=== PATIENT | female | born 1965 | race Caucasian/White ===

== ENCOUNTER 2016-07-16 12:50 | Emergency (ER) | payer OTHER ==
[~2016-07-16] VITALS: Ht 162.6 cm; Wt 134.0 kg
[~2016-07-16 12:50] MED LIST: CYAN100020 PO; HYDR25TA4 PO; LISI-729 PO; NAPR1TAB9 PO; PYRI50TA77 PO; ULT/50 PO; VALA500T39 PO
[2016-07-16 12:57] VITALS: TEMP 36.6; Ht 162.6 cm; Wt 134.0 kg
[2016-07-16] MEDS ORDERED: FENTANYL CITRATE INJ 50 MCG/1 ML 2 ML VIAL IV ONE (13:30)
[2016-07-16] MEDS ORDERED: OPTIRAY 320 IV PRN (13:30)
[2016-07-16] MEDS ORDERED: SODIUM CHLORIDE 0.9% 1000ML 1,000 ML IV STA (13:30)
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
[2016-07-16] MEDS ORDERED: LISI-461 PO (13:43)
[2016-07-16] MEDS ORDERED: NRN100 PO (13:43)
[2016-07-16] MEDS ORDERED: RQP/2 PO (13:43)
[2016-07-16] MEDS ORDERED: OMEP20CA9 PO (13:43)
[2016-07-16 13:46] VITALS: O2SAT 97
[2016-07-16 14:00] LABS: BASO % 0.2 %; BASO ABS # 0.03 K/uL (0-0.2); COMPLETE YES; EOS % 1.3 %; HEMATOCRIT 38.9 % (37-47); LYMPH % 13.8 %; MEAN CELL VOLUME 77.2 fL (80-100); MEAN CORPUSCULAR HEMOGLOBIN 23.6 pg (25-34); MEAN CORPUSCULAR HGB CONC 30.6 g/dl (32-36); MEAN PLATELET VOLUME 8.1 fL (7.4-10.4); MONO % 8.1 %; NEUT % 75.6 %; PLATELET COUNT 465 K/uL (130-400); RED BLOOD COUNT 5.04 M/uL (4.2-5.4); WHITE BLOOD COUNT 15.98 K/uL (4.8-10.8)
[2016-07-16 14:08] LABS: INR 0.9 (0.9-1.1)
[2016-07-16 14:21] LABS: ALT/SGPT 43 U/L (12-78); AST/SGOT 34 U/L (15-37); BLOOD UREA NITROGEN 15 mg/dl (7-18); BUN/CREATININE RATIO 15.8 (10-20); CALCIUM 8.4 mg/dl (8.5-10.1); CARBON DIOXIDE 29 mmol/L (21-32); CHLORIDE 103 mmol/L (98-107); CREATININE 0.93 mg/dl (0.60-1.20); GLUCOSE 116 mg/dl (70-99); POTASSIUM 4.1 mmol/L (3.5-5.1); SODIUM 140 mmol/L (136-145)
[2016-07-16 14:26] LABS: ALKALINE PHOSPHATASE 110 U/L (45-117)
[2016-07-16] MEDS ORDERED: ONDANSETRON INJ 2 MG/ML 2 ML VIAL IV PRN (14:45)
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
[2016-07-16] MEDS: MoRPHine SULFATE 10 MG/ML CARP/VIAL IV PRN ×2 (14:47→16:16)
--- NOTE | 2016-07-16 15:27 | DIAGNOSTIC IMAGING REPORT ---
HEAD CT NONCONTRAST CT DOSE: HISTORY: EVALUATE FOR TRAUMA/INJURY TECHNIQUE: Multiaxial CT images of the head were performed without the use of intravenous contrast. Automated exposure control was utilized for this study. Comparison: Head CT 12/06/2011. Findings: The paranasal sinuses and mastoid air cells are clear. The calvarium and skull base are intact. The ventricles and sulci are within normal limits. There is no mass, hematoma, midline shift, or acute infarct. Left-sided scalp contusion. Small left periventricular white matter hypodensity may represent mild microvascular ischemic change. Impression: No acute intracranial abnormality. Left-sided scalp contusion. Electronically signed by: Da Yao M.D. 07/16/2016 3:07 PM Dictated Date/Time: 07/16/2016 3:03 PM
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
--- NOTE | 2016-07-16 15:27 | DIAGNOSTIC IMAGING REPORT ---
CERVICAL SPINE CT CT DOSE: HISTORY: EVALUATE FOR TRAUMA/INJURY TECHNIQUE: Multiaxial CT images of the cervical spine were performed and reformatted in the sagittal and coronal plane without the use of contrast. COMPARISON: None. FINDINGS: No fractures. No subluxation. Prevertebral soft tissues and the C1-C2 interval are intact. No pneumothorax. Mild disc space narrowing at C5-C6 and C6-C7 with endplate osteophytes. IMPRESSION: No fractures within the cervical spine. Electronically signed by: Da Yao M.D. 07/16/2016 3:09 PM Dictated Date/Time: 07/16/2016 3:07 PM
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
[2016-07-16 17:53] LABS: URINE APPEARANCE CLEAR (CLEAR); URINE BILIRUBIN NEG (NEG); URINE COLOR YELLOW; URINE NITRITE NEG (NEG); URINE PH 6.5 (4.5-7.5); URINE SPECIFIC GRAVITY 1.024 (1.000-1.030); UROBILINOGEN NEG (NEG)
[2016-07-16 17:55] LABS: MANUAL MICROSCOPIC REQUIRED? NO; REVIEW REQ? NO
[2016-07-16] MEDS ORDERED: NORCO 5/325MG HOME PACK PO ONE (18:15)
[2016-07-16] MEDS ORDERED: ONDANSETRON HOME PACK 4MG OD TAB PO ONE (18:15)
[2016-07-16] MEDS ORDERED: HYDR-5688 PO (18:17)
[2016-07-16 18:46] VITALS: BP 138/75; PULSE 88; O2SAT 95
[2017-01-01] MEDS ORDERED: ULT/50 PO (16:32)
[2017-01-01] MEDS ORDERED: CZR50 PO (16:32)
[2017-01-01] MEDS ORDERED: POTA10CA28 PO (16:33)
== END 2016-07-16 18:47 | disposition home or self-care (01) ==
LOC: EDBD 12:50 → C.EDB 12:52
DX: S20.212A Contusion of left front wall of thorax, initial encounter (principal); V48.5XXA Car driver injured in noncollision transport accident in traffic accident, initial encounter; Y92.488 Other paved roadways as the place of occurrence of the external cause; S20.312A Abrasion of left front wall of thorax, initial encounter; S20.01XA Contusion of right breast, initial encounter; S20.111A Abrasion of breast, right breast, initial encounter; S30.1XXA Contusion of abdominal wall, initial encounter; S90.811A Abrasion, right foot, initial encounter; S90.511A Abrasion, right ankle, initial encounter; Z82.49 Family history of ischemic heart disease and other diseases of the circulatory system; Z83.3 Family history of diabetes mellitus

== ENCOUNTER → 2016-09-22 | Outpatient (CLI) | payer OTHER ==
[~2016-09-22] MED LIST changes: -CYAN100020 PO; +LISI-461 PO; -LISI-729 PO; -NAPR1TAB9 PO; +NRN100 PO; +OMEP20CA9 PO; -PYRI50TA77 PO; +REGADENOSON 0.4 MG/5 ML SYR ONE; +RQP/2 PO; -VALA500T39 PO
--- NOTE | 2016-09-26 23:08 | Myocardial Perfusion Study ---
Myocardial Perfusion Study Rpt Myocardial Perfusion Study Rpt Date of Service 09/22/16 Myocardial Perfusion Study Rpt Procedure: 1. Myocardial perfusion study performed in multiple views/images 2. Lexiscan pharmacologic stress ECG Indications: 1. Dyspnea with exertion 2. Chest pain Consent: Informed written consent was obtained prior to the procedure. Ordering physician: Dr. Carr Procedural details: For the stress portion of the study, Lexiscan 0.4 mg was intravenously administered followed by a saline flush. This was followed by 31.5 mCi of technetium 99m Cardiolite, injected at 11:40 a.m. on 09/22/2016. 30 minutes following the injection, imaging of the heart was performed in multiple projections. For the rest portion of the study, 10 mCi technetium 99m Cardiolite was injected intravenously at 9:40 a.m. on 09/22/2016. 1 hour following the injection, imaging of the heart was performed in the same projections. Interpretation note: This procedure was performed on 09/22/2016 by other provider. I was made aware on 09/26/2016 that the study was pending interpretation. Lexiscan stress ECG: Resting ECG demonstrated: Sinus rhythm with first-degree AV block at 80 bpm. Maximum heart rate: 103 bpm Resting blood pressure: 135/55 mmHg Maximum blood pressure: 155/50 mmHg Maximal, age-predicted heart rate: 60 % Significant ST changes: None Arrhythmia: None Symptoms: No symptoms were reported. Findings: Rotating raw imaging demonstrated no significant lung uptake. There is no significant motion artifact. Heart size appeared normal. Myocardial perfusion demonstrated no significant reversible or fixed defect to suggest ischemia or infarct. Ejection fraction: 89 % Wall motion: Hyperdynamic No significant transient ischemic dilation. Impression: 1. Normal myocardial perfusion without significant ischemic changes. 2. Hyperdynamic LV systolic function with calculated ejection fraction of 89%. 3. No regional wall motion abnormalities noted. 4. No arrhythmia. 5. Nondiagnostic Lexiscan ECG.
== END | disposition home or self-care (01) ==
LOC: C.NUCL 08:33
PROVIDERS: ATTEND Internal Medicine
DX: R06.09 Other forms of dyspnea (principal); R07.89 Other chest pain

== ENCOUNTER 2016-12-30 00:13 | Inpatient (IN) | payer OTHER ==
[~2016-12-30] VITALS: Ht 162.6 cm; Wt 146.2 kg
[2016-12-30] VITALS (8 sets, daily range): BP systolic 131–148; BP diastolic 74–82; PULSE 82–101; TEMP 36.4–36.8; O2SAT 91–97; Ht 162.6 cm; Wt 146.2 kg
[~2016-12-30 00:13] MED LIST changes: -REGADENOSON 0.4 MG/5 ML SYR ONE
[2016-12-30] MEDS ORDERED: HYDROmorphone INJ 2 MG/ML SYR/VIAL ONE (00:42)
--- NOTE | 2016-12-30 00:54 | EMERGENCY ROOM VISIT NOTE ---
History Report prepared by Rudyibumberto: Josephine Leija Under the Supervision of: Dr. Martha Pulido D.O. First contact with patient: 00:32 Chief Complaint: ABDOMINAL PAIN Stated Complaint: PAIN IN ABD History of Present Illness The patient is a 51 year old female who presents to the Emergency Room with complaints of worsening left lower abdominal pain that started yesterday. She is accompanied by her and sister. She rates her discomfort as a 10/10 in severity and describes the pain as feeling "sharp" in nature. The pain radiates into her chest and deep inspiration worsens her discomfort. She notes she took a Percocet earlier this evening when her pain worsened, but it has provided no relief. She denies any recent fevers, chills, nausea or vomiting. She drives approximately 50 miles in total each day to get to work, but denies any other recent travel. She denies any pain in her calves. She admits to a recent weight gain over the past several months. The patient denies any history of DVT or PE. She admits to a history of hypertension and restless leg syndrome and states she recently got over bronchitis that was treated with Levaquin and Azithromycin. Source of History: patient Onset: yesterday Position: abdomen (LLQ) Symptom Intensity: 10/10 Quality: sharp Timing: worsening Modifying Factors (Worsening): breathing Modifying Factors (Relieving): narcotics (Percocet) Associated Symptoms: No fevers, No chills, No nausea, No vomiting Review of Systems See HPI for pertinent positives & negatives. A total of 10 systems reviewed and were otherwise negative. Past Medical & Surgical Medical Problems: (1) Asthma (2) Bronchitis (3) Cholecystitis (4) Hypertension (5) Restless leg syndrome (6) s/p right oophorectomy / saplingectomy Surgical Problems: (1) History of cholecystectomy (2) History of knee replacement, total (3) History of shoulder surgery Family History FH: HTN (hypertension) FH: diabetes mellitus FH: heart disease Social History Smoking Status: Never Smoker Alcohol Use: none Drug Use: none Marital Status: Housing Status: lives with family Occupation Status: employed Current/Historical Medications Scheduled Gabapentin (Gabapentin), 100 MG PO TID Hydrochlorothiazide (Hctz), 25 MG PO QAM Lisinopril (Lisinopril), 10 MG PO DAILY Omeprazole (Prilosec), 20 MG PO DAILY Ropinirole Hydrochloride (Requip), 2 MG PO BID Tramadol Hcl (Ultram), 50 MG PO BID Allergies Coded Allergies: Metronidazole (Verified Adverse Reaction, Intermediate, headache, 12/30/16 ) Erythromycin (Verified Adverse Reaction, Mild, UPSET STOMACH, 12/30/16) Physical Exam Vital Signs Date Time Temp Pulse Resp B/P (MAP) Pulse Ox O2 Delivery O2 Flow Rate FiO2 12/30/16 05:03 86 18 138/76 97 Room Air 12/30/16 04:11 87 12/30/16 04:11 88 16 143/72 95 Nasal Cannula 3.0 12/30/16 03:05 88 18 122/59 Room Air 12/30/16 02:03 89 18 141/76 95 Nasal Cannula 3.0 12/30/16 01:05 93 22 153/86 96 Nasal Cannula 3.0 12/30/16 00:59 89 Room Air 12/30/16 00:59 95 Nasal Cannula 3.0 12/30/16 00:32 104 12/30/16 00:18 36.7 104 18 105/73 91 Room Air Physical Exam General: Obese female who appears extremely uncomfortable and cannot take a deep breath secondary to pain. HEENT: Head - normocephalic and atraumatic Pupils are equal, round, and reactive to light. Extraocular eye muscles are intact, and sclera are anicteric. Nose - moist nasal mucosa without discharge. Mouth - moist buccal mucosa. Oropharynx is nonerythematous and there is no tonsillar exudate or edema noted. Neck: Supple; no JVD, nuchal rigidity, cervical lymphadenopathy, or auscultated bruits. Heart: Regular rate and rhythm. Heart sounds are distant secondary to body habitus. There is a normal S1 and S2 with no murmurs, clicks, or gallops appreciated. Lungs: Diminished breath sounds in all lung malhotra secondary to body habitus, no wheezes, rales, or rhonchi. Chest: The patient has reproducible discomfort over the left inferior chest wall in the midaxillary line Abdomen: Soft, completely nontender, distended, with good bowel sounds. There are no palpable pulsatile masses or hepatosplenomegaly. There is no guarding, rigidity, or rebound noted. Extremities: Calves are distended bilaterally, no warmth or erythema. No evidence of cyanosis, clubbing, or edema. There are easily palpable peripheral pulses. Skin: warm and dry with good turgor and no rashes. Medical Decision & Procedures ER Provider Diagnostic Interpretation: Radiology results as stated below per my review and the radiologist's interpretation: CTA CHEST No evidence of filling defect to suggest pulmonary embolism. Thoracic aorta within limits. No pericardial effusion. Very small left pleural fluid. Partially imaged suggestion of hepatic steatosis. Basilar atelectasis. Central airways appear patent. Radiologist: Dr. Quicny Hein MD Laboratory Results Test 12/30/16 00:40 Est Creatinine Clear Calc Drug Dose 129.2 ml/min Estimated Average Glucose 163 mg/dl Hemoglobin A1c 7.3 % (4.5-5.6) Lipase 137 U/L (73-393) Laboratory results per my review. Medications Administered Medications (Trade) Dose Ordered Sig/Mara Route Start Time Stop Time Status Last Admin Dose Admin Hydromorphone HCl (Dilaudid Inj) 2 mg STK-MED ONCE .ROUTE 12/30/16 00:42 12/30/16 00:43 DC 12/30/16 00:53 2 MG Ketorolac Tromethamine (Toradol Inj) 30 mg NOW STAT IV 12/30/16 00:59 12/30/16 01:00 DC 12/30/16 01:03 30 MG Ondansetron HCl (Zofran Inj) 4 mg NOW STAT IV 12/30/16 01:57 12/30/16 01:58 DC 12/30/16 02:00 4 MG Sodium Chloride 1,000 ml @ 250 mls/hr Q4H STAT IV 12/30/16 04:06 12/30/16 06:51 DC 12/30/16 04:30 250 MLS/HR Ondansetron HCl (Zofran Inj) 4 mg NOW STAT IV 12/30/16 04:06 12/30/16 04:07 DC 12/30/16 04:24 4 MG Procedure Dilaudid IV, Toradol IV, Zofran IV, NSS IV. ECG Indication: abdominal pain Rate (beats per minute): 105 Rhythm: sinus tachycardia Findings: no acute ischemic change, no ectopy ED Course 0040: Past medical records reviewed. The patient was evaluated in room B2. A complete history and physical exam was performed. IV lock was established. Labs are drones above. A twelve-lead EKG was obtained as described above. 0042: Dilaudid 2 mg IV. 0059: Toradol 30 mg IV. The patient will go for CT scan of the chest to rule out PE. 0157: Nursing informed me the patient has vomited twice and would like something for nausea. I will place medication orders. 0157: Zofran 4 mg IV. 0236: I reevaluated the patient. She is feeling a little better and resting comfortably. 0325: I reevaluated the patient. She just threw up an enormous amount but states she only ate 1 piece of pizza today. She reports she feels better. I discussed her results and discharge instructions and she verbalized complete understanding and agreement. She did tell me her doctor is concerned she may have sleep apnea as she wakes up coughing every morning. She will follow up with them for further testing. 0401: I reevaluated the patient. She just vomited another entire bagful of vomit. I discussed my recommendation she remain in the hospital for further evaluation and management and she verbalized complete understanding and agreement. 0406: Zofran 4 mg IV, NSS 1000 ml @ 250 mls/hr IV. 0407: I discussed the patients case with Dr. Monique, [facility] Hospitalist. The patient will be further evaluated. Medical Decision The patient is a 55 year old female who presents to the ED with abdominal pain. Differential diagnosis includes PE, pleurisy, pneumonia, costochondritis and acute coronary syndrome. Lab results show WBC is 15.8. Hemoglobin is 11.5. Normal renal function. Glucose is 206. Normal LFT's, except AST is 49. Alkaline Phosphatase is 121. Lipase is 137. This is a 51-year-old female patient who presents to the emergency department complaining of severe left lower chest wall pain, especially when she takes a deep breath. Patient denies ever having symptoms like this in the past. Patient's O2 saturations were marginal at 90-92. The patient has had multiple episodes of vomiting all here in the emergency department. CT scan of the chest was negative for PE. She did finally get some relief of the discomfort after IV analgesia but continued to vomit. I discussed the case [facility]ist and they will evaluate for further management. Medication Reconcilliation Current Medication List: was personally reviewed by me Blood Pressure Screening Patient's blood pressure: Elevated blood pressure Blood pressure disposition: Elevated BP felt to be situational Consults Time Called: 404 Consulting Physician: Dr. Monique [facility] Hospitalist Returned Call: [phone] I discussed the patients case with Dr. Monique [facility] Hospitalist. The patient will be further evaluated. Impression Primary Impression: Left-sided chest wall pain Additional Impressions: Intractable vomiting Hyperglycemia Scribe Attestation The scribe's documentation has been prepared under my direction and personally reviewed by me in its entirety. I confirm that the note above accurately reflects all work, treatment, procedures, and medical decision making performed by me. Departure Information Dispostion Being Evaluated By Hospitalist Referrals Korina Carr M.D. (PCP) Patient Instructions [facility] Problem Qualifiers Additional Impressions: Intractable vomiting Vomiting type: unspecified Nausea presence: with nausea Qualified Codes: R11.2 - Nausea with vomiting, unspecified
[2016-12-30] MEDS ORDERED: KETOROLAC TROMETHAMINE 30 MG/ML VIAL IV STA (00:59)
[2016-12-30] MEDS ORDERED: OPTIRAY 320 IV PRN (01:00)
[2016-12-30 01:02] LABS: BASO % 0.3 %; BASO ABS # 0.04 K/uL (0-0.2); COMPLETE YES; EOS % 1.6 %; HEMATOCRIT 37.1 % (37-47); LYMPH % 17.2 %; LYMPH ABS # 2.72 K/uL (1.2-3.4); MEAN CORPUSCULAR HEMOGLOBIN 23.9 pg (25-34); MEAN PLATELET VOLUME 8.3 fL (7.4-10.4); MONO % 6.9 %; PLATELET COUNT 461 K/uL (130-400); RED BLOOD COUNT 4.82 M/uL (4.2-5.4); WHITE BLOOD COUNT 15.84 K/uL (4.8-10.8)
[2016-12-30 01:21] LABS: ALT/SGPT 73 U/L (12-78); AST/SGOT 49 U/L (15-37); BLOOD UREA NITROGEN 15 mg/dl (7-18); BUN/CREATININE RATIO 20.7 (10-20); CALCIUM 8.8 mg/dl (8.5-10.1); CARBON DIOXIDE 29 mmol/L (21-32); CHLORIDE 97 mmol/L (98-107); CREATININE 0.74 mg/dl (0.60-1.20); GLUCOSE 206 mg/dl (70-99); POTASSIUM 3.6 mmol/L (3.5-5.1); SODIUM 135 mmol/L (136-145)
[2016-12-30 01:26] LABS: ALKALINE PHOSPHATASE 121 U/L (45-117); CKMB/CK RATIO 1.8 (0-3.0)
[2016-12-30] MEDS ORDERED: ONDANSETRON INJ 2 MG/ML 2 ML VIAL IV STA ×2 (01:57→04:06)
[2016-12-30] MEDS ORDERED: SODIUM CHLORIDE 0.9% 1000ML 1,000 ML IV STA (04:06)
[2016-12-30] MEDS ORDERED: ONDANSETRON 8MG OD TAB PO PRN (04:15)
[2016-12-30] MEDS ORDERED: GLUCAGON FOR INJ 1 MG VIAL SQ PRN (04:15)
[2016-12-30] MEDS ORDERED: GLUCOSE 40% GEL 15 GM TUBE PO PRN (04:15)
[2016-12-30] MEDS ORDERED: ACETAMINOPHEN IV 100 ML IV PRN (04:15)
[2016-12-30] MEDS ORDERED: GLUCOSE 10 TABS/TUBE PO PRN (04:15)
[2016-12-30] MEDS ORDERED: DEXTROSE 50% 50 ML SYR IV PRN (04:15)
[2016-12-30] MEDS ORDERED: LEVALBUTEROL/IPRATROPIUM NEB INH PRN (04:15)
[2016-12-30] MEDS ORDERED: MoRPHine SULFATE 2 MG/ML CARP IV PRN (05:30)
--- NOTE | 2016-12-30 05:47 | History and Physical ---
History & Physical Date & Time of Service: Dec 30, 2016 at 05:29 Chief Complaint: Pain In Abd Primary Care Physician: Korina Carr M.D. History of Present Illness Source: patient The patient is a 51-year-old female who presents to the emergency department with worsening left upper quadrant abdominal pain, with intermittent radiation into her chest, worsening with deep inspiration, and worsening over the past 2 weeks, in particular over the past 2 days. She also reports that over the past year, almost every night as she is going to bed, she has episodes of nausea and vomiting, during which she brings up partially digested food, as was noted by nursing in the ED tonight. She does drive approximately 50 miles total each day to and from work. She has not had any sick exposures that she is aware of, has not had any questionable food intake. She was recently treated for bronchitis reportedly with Levaquin and azithromycin. Past Medical/Surgical History Medical Problems: (1) s/p right oophorectomy / saplingectomy Permanent Comment: for benign disease Status: Resolved Family History FH: HTN (hypertension) FH: diabetes mellitus FH: heart disease Social History Smoking Status: Never Smoker Smokeless Tobacco Use: No Alcohol Use: none Drug Use: none Marital Status: Housing status: lives with family Occupational Status: employed Immunizations History of Influenza Vaccine: Unknown History of Tetanus Vaccine?: Unknown History of Pneumococcal: Unknown History of Hepatitis B Vaccine: Unknown Multi-Drug Resistant Organisms History of MDRO: No Allergies Coded Allergies: Metronidazole (Verified Adverse Reaction, Intermediate, headache, 12/30/16 ) Erythromycin (Verified Adverse Reaction, Mild, UPSET STOMACH, 12/30/16) Home Medications Scheduled Gabapentin (Gabapentin), 100 MG PO TID Hydrochlorothiazide (Hctz), 25 MG PO QAM Lisinopril (Lisinopril), 10 MG PO DAILY Omeprazole (Prilosec), 20 MG PO DAILY Ropinirole Hydrochloride (Requip), 2 MG PO BID Tramadol Hcl (Ultram), 50 MG PO BID Review of Systems The patient denies palpitations, shortness of breath, cough, lower extremity swelling, vision change, hearing change, sore throat, fevers, chills, sweats, pelvic pain, blood in urine or stool, dysuria, urinary frequency or urgency, lightheadedness, dizziness, headache, memory loss, loss of consciousness, rash, abnormal bruising or bleeding, imbalance, focal or generalized weakness, numbness or tingling in arms or legs, generalized arthralgias or myalgias, back or neck pain, or night sweats. The review of systems is otherwise negative other than for that already noted above, and at least 10 systems have been reviewed. Physical Exam Vital Signs Date Time Temp Pulse Resp B/P (MAP) Pulse Ox O2 Delivery O2 Flow Rate FiO2 12/30/16 05:03 86 18 138/76 97 Room Air 12/30/16 04:11 87 12/30/16 04:11 88 16 143/72 95 Nasal Cannula 3.0 12/30/16 03:05 88 18 122/59 Room Air 12/30/16 02:03 89 18 141/76 95 Nasal Cannula 3.0 12/30/16 01:05 93 22 153/86 96 Nasal Cannula 3.0 12/30/16 00:59 89 Room Air 12/30/16 00:59 95 Nasal Cannula 3.0 12/30/16 00:32 104 12/30/16 00:18 36.7 104 18 105/73 91 Room Air The patient is awake, alert and oriented 3, normocephalic and atraumatic, morbidly obese, lying in bed and in no acute distress. HEENT--PERRL, EOMI, mucous membranes and oropharynx dry. Neck--supple, no JVD or bruits, thyroid normal, trachea midline, no adenopathy. Heart--normal S1 and S2, no extra beats, no murmurs, rubs or gallops. Lungs--decreased breath sounds throughout, no respiratory distress, no accessory muscle use. Abdomen--diminished bowel sounds, tender epigastrium to left upper quadrant, nondistended, and morbidly obese. Extremities--no cyanosis, clubbing or edema. There are good distal pulses b/l. Dermatologic--normal skin turgor, normal color, warm and dry, no abnormal lymph nodes, no rash. Neurologic--cranial nerves II through XII grossly intact. Rheumatologic--normal range of motion. Psychiatric--normal affect. Diagnostics Laboratory Results Results Past 24 Hours Test 12/30/16 00:40 Range/Units White Blood Count 15.84 4.8-10.8 K/uL Red Blood Count 4.82 4.2-5.4 M/uL Hemoglobin 11.5 12.0-16.0 g/dL Hematocrit 37.1 37-47 % Mean Corpuscular Volume 77.0 80-100 fL Mean Corpuscular Hemoglobin 23.9 25-34 pg Mean Corpuscular Hemoglobin Concent 31.0 32-36 g/dl Platelet Count 461 130-400 K/uL Mean Platelet Volume 8.3 7.4-10.4 fL Neutrophils (%) (Auto) 73.0 % Lymphocytes (%) (Auto) 17.2 % Monocytes (%) (Auto) 6.9 % Eosinophils (%) (Auto) 1.6 % Basophils (%) (Auto) 0.3 % Neutrophils # (Auto) 11.58 1.4-6.5 K/uL Lymphocytes # (Auto) 2.72 1.2-3.4 K/uL Monocytes # (Auto) 1.09 0.11-0.59 K/uL Eosinophils # (Auto) 0.25 0-0.5 K/uL Basophils # (Auto) 0.04 0-0.2 K/uL RDW Standard Deviation 49.5 36.4-46.3 fL RDW Coefficient of Variation 17.6 11.5-14.5 % Immature Granulocyte % (Auto) 1.0 % Immature Granulocyte # (Auto) 0.16 0.00-0.02 K/uL Sodium Level 135 136-145 mmol/L Potassium Level 3.6 3.5-5.1 mmol/L Chloride Level 97 98-107 mmol/L Carbon Dioxide Level 29 21-32 mmol/L Anion Gap 9.0 3-11 mmol/L Blood Urea Nitrogen 15 7-18 mg/dl Creatinine 0.74 0.60-1.20 mg/dl Est Creatinine Clear Calc Drug Dose 129.2 ml/min Estimated GFR () 108.7 Estimated GFR (Non- 93.8 BUN/Creatinine Ratio 20.7 10-20 Random Glucose 206 70-99 mg/dl Calcium Level 8.8 8.5-10.1 mg/dl Total Bilirubin 0.4 0.2-1 mg/dl Direct Bilirubin 0.1 0-0.2 mg/dl Aspartate Amino Transf (AST/SGOT) 49 15-37 U/L Alanine Aminotransferase (ALT/SGPT) 73 12-78 U/L Alkaline Phosphatase 121 45-117 U/L Total Creatine Kinase 109 26-192 U/L Creatine Kinase MB 2.0 0.5-3.6 ng/ml Creatine Kinase MB Ratio 1.8 0-3.0 Troponin I < 0.015 0-0.045 ng/ml Total Protein 7.9 6.4-8.2 gm/dl Albumin 3.4 3.4-5.0 gm/dl Lipase 137 73-393 U/L EKG EKG shows sinus tachycardia at 105 bpm, no acute ST-T changes, and no change compared to 07/16/2016. Impression Assessment and Plan Left upper quadrant abdominal pain/intractable vomiting/radiation of pain into left chest-- The patient will be admitted to telemetry for serial cardiac enzymes, cardiac rhythm monitoring and a 2-D echocardiogram with Dopplers. CTA of the chest was negative for pulmonary embolism. I added a CT of the abdomen and pelvis without contrast, as she had already received contrast during the above CTA, that was negative for obstruction or ileus. The patient is hyperglycemic, with a nonfasting blood sugar of 206, and her symptoms would be consistent with diabetic gastroparesis, although anginal equivalent is a possibility as well. Order laboratories as noted above, and would consider either a gastric emptying scan or upper GI with small bowel follow-through if either can be done over the weekend. Once cardiac issues have been ruled out, another option would be to perform empiric treatment with metoclopramide IV. Hyperglycemia-- Check a hemoglobin A1c. Place on Accu-Cheks before meals and at bedtime with NovoLog coverage per scale. Hypertension-- Hold lisinopril 10 mg by mouth daily and HCTZ 25 mg every morning Restless leg syndrome-- Continue ropinirole 2 mg by mouth twice a day. Peripheral neuropathy-- Continue gabapentin 100 mg by mouth 3 times a day GERD-- Change omeprazole 20 mg by mouth daily to famotidine 20 mg IV every 12 hours. Pain management-- Continue tramadol 50 mg by mouth twice a day Toradol 30 mg IV every 6 hours when necessary moderate pain Morphine sulfate 2-4 mg IV every 2 hours when necessary moderately severe to severe pain. Presumptive sleep apnea-- Patient does have difficulty with sleep at night, is known to snore, and have sleep pauses. Continue nasal cannula oxygen in particular at bedtime for now. She'll need to have a sleep study scheduled for the outpatient setting. Level of Care Telemetry Advanced Directives Existing Advance Directive: No Existing Living Will: No Existing Power of Button Riveter: No Resuscitation Status FULL RESUSCITATION VTE Prophylaxis VTE Risk Assessment Done? Y/N: Yes Risk Level: Moderate Given or contraindicated: Unfractionated heparin SQ, SCD's Social Service Consult None Apply
[2016-12-30] MEDS ORDERED: IPRATROPIUM BROMIDE NEB SOLN 0.02% 2.5 ML VIAL INH PRN (06:00)
[2016-12-30] MEDS ORDERED: LEVALBUTEROL 1.25MG/0.5ML NEB INH PRN (06:00)
[2016-12-30] MEDS: INSULIN ASPART 100 UNITS/ML 3 ML PEN SC SCH ×4 (06:30→21:00)
[2016-12-30] MEDS ORDERED: INFLUENZA VIRUS QUAD VACCINE 0.5 ML SYR IM. ONE (07:00)
[2016-12-30] MEDS ORDERED: INFLUENZA ADMINISTRATION CHARGE ONE (07:00)
[2016-12-30] MEDS ORDERED: PNEUMOCOCCAL ADMINISTRATION CHARGE ONE (07:00)
[2016-12-30] MEDS ORDERED: PNEUMOCOCCAL POLYSACCHARIDES 25 MCG/0.5 ML VIAL/SYR IM. ONE (07:00)
--- NOTE | 2016-12-30 07:00 | DIAGNOSTIC IMAGING REPORT ---
ABDOMEN AND PELVIS CT WITHOUT CONTRAST CT DOSE: 1842.08 mGy.cm HISTORY: LUQ ABDOMINAL PAIN, NAUSEA AND VOMITTING TECHNIQUE: Multiaxial CT images of the abdomen and pelvis were performed without contrast. A dose lowering technique was utilized adhering to the principles of ALARA. COMPARISON STUDY: Abdomen and pelvis CT 07/16/2016. FINDINGS: Cholecystectomy. Hepatic steatosis. Patchy densities within the lung bases, left. The right rib the spleen, adrenal glands, pancreas, and kidneys are unremarkable. Contrast within the bladder is also streak artifact. The bladder appears unremarkable. There is a 2.5 cm cyst within the left adnexa/ovary. The uterus is unremarkable. No pelvic free fluid. Suboptimal evaluation for bowel pathology due to the lack of intravenous and oral contrast. However, there is no definite bowel wall thickening or obstruction. Tiny fat-containing umbilical hernia. Stable prominent mesenteric lymph nodes within the right upper abdomen. Trace left pleural effusion. IMPRESSION: 1. Trace left pleural effusion. 2. Patchy bibasilar densities, left greater than right. This is nonspecific but favors atelectasis. Pneumonia could also have a similar appearance. 3. Hepatic steatosis. 4. Cholecystectomy. 5. No definite bowel wall thickening or obstruction. 6. A 2.5 cm cyst within the left adnexa/ovary. Electronically signed by: Da Yao M.D. 12/30/2016 6:58 AM Dictated Date/Time: 12/30/2016 6:53 AM
[2016-12-30] MEDS: LACTATED RINGER'S 1000ML 1,000 ML IV SCH ×2 (07:01→17:08)
--- NOTE | 2016-12-30 07:22 | DIAGNOSTIC IMAGING REPORT ---
CHEST CTA for PULMONARY ARTERIES CT DOSE: 636.21 mGy.cm HISTORY: Left lower chest pain. TECHNIQUE: Multiaxial CT images of the chest were performed following the intravenous administration of contrast to evaluate the pulmonary arteries. Maximal intensity projection images were also obtained. A dose lowering technique was utilized adhering to the principles of ALARA. COMPARISON STUDY: Chest CT 07/16/2016. FINDINGS: Hepatic steatosis. The visualized spleen is unremarkable. Trace left pleural effusion. No mediastinal or hilar lymphadenopathy. No fractures within the visualized osseous structures. No pneumothorax. The central airways are patent. Linear densities within the right lung base and patchy densities within the left lung base posteriorly. This is nonspecific but suggestive of atelectasis. A 4 mm subpleural nodule within the right middle lobe on image 107. Normal caliber thoracic aorta with no evidence for dissection. No evidence for pulmonary embolus. IMPRESSION: 1. No evidence for pulmonary embolus. 2. Trace left pleural effusion. 3. Patchy densities within the base of the left lower lobe. This favors atelectasis. A pneumonia could have a similar appearance but is considered less likely. 4. A 4 mm subpleural nodule within the right middle lobe. Please refer to below summary of Fleischner criteria recommendations for follow-up of incidental CT nodules (Seth De La Torre, Guidelines for management of small pulmonary nodules detected on CT scans: A statement from the Fleischner Society, Radiology 237: [phone].) SOLID NODULES Solitary nodule size: <6 mm * Low risk patients: no follow-up needed * high risk patients: optional CT at 12 months Solitary nodule size: 6-8 mm * Low risk patients: follow-up at 6-12 months, then consider further follow-up at 18-24 months * high risk patients: initial follow-up CT at 6-12 months and then at 18-24 months if no change Solitary nodule size: >8 mm * either low or high risk patients - consider follow-up CT at 3 months, and/or CT-PET, and/or biopsy Multiple nodules size: <6 mm * Low risk patients: no routine follow-up * high risk patients: optional CT at 12 months Multiple nodules size: 6-8 mm * Low risk patients: follow-up at 3-6 months, then consider further follow-up at 18-24 months * high risk patients: follow-up at 3-6 months, then at 18-24 months if no change Multiple nodules size: >8 mm * Low risk patients: follow-up at 3-6 months, then consider further follow-up at 18-24 months * high risk patients: follow-up at 3-6 months, then at 18-24 months if no change Note: newly detected indeterminate nodule in persons 35 years of age or older. * Low risk patients: minimal or absent history of smoking and/or other known risk factors * high risk patients: history of smoking or of other known risk factors (e.g. first degree relative with lung cancer, or exposure to asbestos, radon, uranium) * if a nodule up to 8 mm is partly solid or is ground glass further follow-up is required after 24 months to exclude possible slow growing adenocarcinoma (COLLEEN) SUBSOLID NODULES Solitary pure ground-glass nodule * nodule size <6 mm - no CT follow-up required * nodule size >=6 mm - follow-up CT at 6-12 months, then every 2 years until 5 years Solitary part-solid nodule * nodule size <6 mm - no CT follow-up required * nodule size >=6 mm - follow-up CT at 3-6 months. If unchanged, and solid component remains <6 mm, then annual follow-up for 5 years Multiple subsolid nodules * nodule size <6 mm - follow-up CT at 3-6 months, consider further follow-up at 2 and 4 years if stable * nodule size >=6 mm - follow-up CT at 3-6 months, subsequent management based on the most suspicious nodule(s) Electronically signed by: Da Yao M.D. 12/30/2016 7:21 AM Dictated Date/Time: 12/30/2016 7:14 AM
[2016-12-30] MEDS: FAMOTIDINE IV INJ 20 MG in SYRINGE 3 ML IV SCH ×2 (08:15→21:09)
[2016-12-30 08:56] LABS: ESTIMATED AVERAGE GLUCOSE 163 mg/dl; HA1C FLAG Normal (Normal)
[2016-12-30] MEDS ORDERED: FAMOTIDINE IV INJ 20 MG in DEXTROSE 5% 100ML 100 ML IV SCH (09:00)
[2016-12-30 10:01] LABS: BASO % 0.3 %; BASO ABS # 0.04 K/uL (0-0.2); COMPLETE YES; EOS % 0.4 %; IG% 0.9 %; LYMPH % 14.2 %; LYMPH ABS # 1.97 K/uL (1.2-3.4); MEAN CELL VOLUME 78.1 fL (80-100); MEAN CORPUSCULAR HEMOGLOBIN 23.7 pg (25-34); MEAN CORPUSCULAR HGB CONC 30.3 g/dl (32-36); MEAN PLATELET VOLUME 8.2 fL (7.4-10.4); MONO % 8.8 %; NEUT % 75.4 %; PLATELET COUNT 407 K/uL (130-400); RED BLOOD COUNT 4.48 M/uL (4.2-5.4); WHITE BLOOD COUNT 13.87 K/uL (4.8-10.8)
[2016-12-30] MEDS: MoRPHine SULFATE 4 MG/ML 1 ML CARP\\VIAL IV PRN ×2 (13:46→19:46)
[2016-12-30 14:56] LABS: CKMB/CK RATIO 1.7 (0-3.0)
--- NOTE | 2016-12-30 16:01 | ECHOCARDIOGRAM REPORT ---
*NOTICE TO RECEIVING REPUBLICAN AGENCY This information is strictly Confidential and protected under [place] law. [place] law prohibits you from making any further disclosure of this information unless further disclosure is expressly permitted by the written consent of the person to whom it pertains or is authorized by law. A general authorization for the release of medical or other information is not sufficient for this purpose. Hospital accepts no responsibility if the information is made available to any other person, INCLUDING THE PATIENT. Interpretation Summary * Name: TERELL LEONARD Study Date: 12/30/2016 09:42 AM BP: 112/65 mmHg * Patient Location: [facility] HR: 79 * : 1965 (M/d/yyyy) Gender: Female Height: 64 in * Age: 51 yrs Ethnicity: [place] Weight: 320 lb * Ordering Physician: Jakob Lindsay * Referring Physician: Self, Referred * Performed By: Milo Diaz RDCS * * Reason For Study: Chets pain * BSA: 2.4 m2 * -- Conclusions -- * 1. Normal left ventricular size and systolic function. EF 65-70%. No regional wall motion abnormalities. Mild concentric left ventricular hypertrophy. Type 1 diastolic dysfunction. * 2. Sclerotic aortic valve without significant stenosis. * 3. Compared to prior study on 06/05/2008, aortic valve now appears sclerotic. Procedure Details * A complete two-dimensional transthoracic echocardiogram was performed (2D, M-mode, Doppler and color flow Doppler). * The study was technically adequate. Left Ventricle * Normal left ventricular size and systolic function. EF 65-70%. No regional wall motion abnormalities. Mild concentric left ventricular hypertrophy. Type 1 diastolic dysfunction. Right Ventricle * The right ventricle is normal in size and function. * The right ventricular systolic function is normal as assessed by tricuspid annular plane systolic excursion (TAPSE) (normal >1.5 cm). Atria * The left atrial size is normal. * Right atrial size is normal. * There is no evidence of atrial septal defect, but resolution does not allow assessment for a patent foramen ovale. Mitral Valve * The mitral valve is grossly normal. * There is mild mitral annular calcification. * There is no mitral valve stenosis. * There is trace mitral regurgitation. Tricuspid Valve * The tricuspid valve is not well visualized, but is grossly normal. * There is no tricuspid stenosis. * Significant tricuspid regurgitation is absent. Aortic Valve * Sclerotic aortic valve without significant stenosis. * No aortic regurgitation is present. Pulmonic Valve * The pulmonary valve is inadequately visualized, but the Doppler data is adequate for interpretation. * There is no pulmonic valvular stenosis. * There is no significant pulmonary regurgitation. Great Vessels * The aortic root is normal size. * Ascending aorta of normal dimension * Aortic arch of normal dimension. * Normal pulmonary venous flow pattern. Pericardium/Pleural * There is no pericardial effusion. Great Vessels * IVC not well visualized but appears to be normal in size. MMode 2D Measurements and Calculations IVSd 1.3 cm IVSs 1.8 cm LVIDd 4.0 cm LVIDs 2.4 cm LVPWd 1.3 cm LVPWs 2.1 cm IVS/LVPW 1.0 FS 39.7 % EDV(Teich) 70.9 ml ESV(Teich) 20.7 ml EF(Teich) 70.8 % EDV(cubed) 65.0 ml ESV(cubed) 14.3 ml EF(cubed) 78.1 % % IVS thick 34.5 % % LVPW thick 63.4 % LV mass(C)d 190.9 grams LV mass(C)dI 79.9 grams/m\S\2 LV mass(C)s 199.6 grams LV mass(C)sI 83.6 grams/m\S\2 SV(Teich) 50.2 ml SI(Teich) 21.0 ml/m\S\2 SV(cubed) 50.8 ml SI(cubed) 21.2 ml/m\S\2 EPSS 0.49 cm Ao root diam 3.0 cm Ao root area 7.2 cm\S\2 ACS 1.4 cm LA dimension 3.3 cm asc Aorta Diam 3.0 cm LA/Ao 1.1 LVOT diam 2.0 cm LVOT area 3.0 cm\S\2 LVAd ap4 27.6 cm\S\2 LVLd ap4 8.7 cm EDV(MOD-sp4) 73.3 ml EDV(sp4-el) 74.6 ml LVAs ap4 15.2 cm\S\2 LVLs ap4 7.7 cm ESV(MOD-sp4) 25.4 ml ESV(sp4-el) 25.4 ml EF(MOD-sp4) 65.3 % EF(sp4-el) 66.0 % LVAd ap2 33.8 cm\S\2 LVLd ap2 9.6 cm EDV(MOD-sp2) 99.6 ml EDV(sp2-el) 101.0 ml LVAs ap2 17.0 cm\S\2 LVLs ap2 7.5 cm ESV(MOD-sp2) 32.7 ml ESV(sp2-el) 32.6 ml EF(MOD-sp2) 67.2 % EF(sp2-el) 67.7 % LVLd %diff 9.7 % EDV(MOD-bp) 89.7 ml LVLs %diff -3.12 % ESV(MOD-bp) 29.1 ml EF(MOD-bp) 67.5 % SV(MOD-sp4) 47.9 ml SI(MOD-sp4) 20.1 ml/m\S\2 SV(MOD-sp2) 66.9 ml SI(MOD-sp2) 28.0 ml/m\S\2 SV(MOD-bp) 60.6 ml SI(MOD-bp) 25.4 ml/m\S\2 SV(sp4-el) 49.2 ml SI(sp4-el) 20.6 ml/m\S\2 SV(sp2-el) 68.3 ml SI(sp2-el) 28.6 ml/m\S\2 Doppler Measurements and Calculations MV E max jennifer 104.2 cm/sec MV A max jennifer 115.3 cm/sec MV E/A 0.90 MV dec time 0.18 sec Ao V2 max 180.7 cm/sec Ao max PG 13.1 mmHg Ao max PG (full) 8.4 mmHg Ao V2 mean 120.8 cm/sec Ao mean PG 6.5 mmHg Ao mean PG (full) 3.7 mmHg Ao V2 VTI 34.1 cm LOGAN(I,A) 2.2 cm\S\2 LOGAN(I,D) 2.2 cm\S\2 LOGAN(V,A) 1.8 cm\S\2 LOGAN(V,D) 1.8 cm\S\2 LV V1 max PG 4.6 mmHg LV V1 mean PG 2.7 mmHg LV V1 max 107.3 cm/sec LV V1 mean 78.8 cm/sec LV V1 VTI 24.8 cm SV(Ao) 244.9 ml SI(Ao) 102.6 ml/m\S\2 SV(LVOT) 74.2 ml SI(LVOT) 31.1 ml/m\S\2 PA V2 max 113.6 cm/sec PA max PG 5.2 mmHg PA acc slope 740.5 cm/sec\S\2 PA acc time 0.12 sec PA pr(Accel) 24.8 mmHg
[2016-12-30] MEDS: KETOROLAC TROMETHAMINE 30 MG/ML VIAL IV PRN (17:14)
[2016-12-30] MEDS ORDERED: PANTOprazole SOD 40 MG TAB PO STA (17:17)
[2016-12-30] MEDS ORDERED: DICLOFENAC SOD 1% GEL 100 GM TUBE EXT ONE (17:17)
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
[2016-12-30] MEDS: ONDANSETRON INJ 2 MG/ML 2 ML VIAL IV SCH (17:51)
[2016-12-30] MEDS ORDERED: NURSING VERBAL MED ORDER ONE (18:30)
[2016-12-30] MEDS ORDERED: GABAPENTIN 100 MG CAP PO ONE (18:45)
[2016-12-30 19:03] LABS: PROTHROMBIN TIME (PATIENT) 10.5 SECONDS (9.0-12.0)
[2016-12-30] MEDS: DICLOFENAC SOD 1% GEL 100 GM TUBE EXT SCH (21:08)
[2016-12-30] MEDS: PANTOprazole SOD 40 MG TAB PO SCH (21:09)
[2016-12-30] MEDS: GABAPENTIN 100 MG CAP PO SCH (21:10)
[2016-12-30] MEDS: ROPINIROLE HCL 1 MG TAB PO SCH (21:10)
[2016-12-30 22:04] LABS: CKMB/CK RATIO 1.3 (0-3.0)
[2016-12-31] VITALS (11 sets, daily range): BP systolic 129–167; BP diastolic 75–80; PULSE 85–91; TEMP 36.3–36.7; O2SAT 86–92
[2016-12-31] MEDS: LACTATED RINGER'S 1000ML 1,000 ML IV SCH ×3 (03:11→23:16)
[2016-12-31] MEDS: KETOROLAC TROMETHAMINE 30 MG/ML VIAL IV PRN ×3 (03:12→18:57)
[2016-12-31] MEDS: ONDANSETRON INJ 2 MG/ML 2 ML VIAL IV SCH ×4 (03:12→18:42)
[2016-12-31 07:09] LABS: BASO % 0.3 %; BASO ABS # 0.03 K/uL (0-0.2); COMPLETE YES; EOS % 2.8 %; HEMATOCRIT 33.8 % (37-47); IG% 0.6 %; LYMPH ABS # 2.45 K/uL (1.2-3.4); MEAN CELL VOLUME 77.5 fL (80-100); MEAN CORPUSCULAR HEMOGLOBIN 23.2 pg (25-34); MEAN CORPUSCULAR HGB CONC 29.9 g/dl (32-36); MEAN PLATELET VOLUME 8.1 fL (7.4-10.4); MONO % 7.8 %; NEUT % 66.5 %; PLATELET COUNT 373 K/uL (130-400); RED BLOOD COUNT 4.36 M/uL (4.2-5.4); WHITE BLOOD COUNT 11.13 K/uL (4.8-10.8)
[2016-12-31 07:18] LABS: PROTHROMBIN TIME (PATIENT) 10.5 SECONDS (9.0-12.0)
[2016-12-31 07:38] LABS: BUN/CREATININE RATIO 29.2 (10-20); CALCIUM 8.1 mg/dl (8.5-10.1); CREATININE 0.58 mg/dl (0.60-1.20); MAGNESIUM 2.3 mg/dl (1.8-2.4)
[2016-12-31] MEDS: ENOXAPARIN 40 MG/0.4 ML SYR SQ SCH (07:58)
[2016-12-31] MEDS: ROPINIROLE HCL 1 MG TAB PO SCH ×2 (07:58→21:41)
[2016-12-31] MEDS: PANTOprazole SOD 40 MG TAB PO SCH ×2 (07:58→21:41)
[2016-12-31] MEDS: GABAPENTIN 100 MG CAP PO SCH ×3 (07:58→21:40)
[2016-12-31] MEDS: POLYETHYLENE (MIRALAX) 17 GM PACK PO SCH (07:59)
[2016-12-31] MEDS: DICLOFENAC SOD 1% GEL 100 GM TUBE EXT SCH ×4 (08:04→21:42)
[2016-12-31] MEDS: INSULIN ASPART 100 UNITS/ML 3 ML PEN SC SCH ×4 (08:10→21:48)
[2016-12-31] MEDS: FAMOTIDINE 20 MG TAB PO SCH ×2 (08:19→21:40)
[2016-12-31] MEDS: DOCUSATE SODIUM 100 MG CAP PO SCH ×2 (08:19→21:41)
[2016-12-31 08:41] LABS: FERRITIN 94.2 ng/ml (8.0-388.0)
[2016-12-31] MEDS ORDERED: ROPINIROLE HCL 1 MG TAB PO SCH (09:00)
[2016-12-31] MEDS ORDERED: GABAPENTIN 100 MG CAP PO SCH (09:00)
[2016-12-31] MEDS: ACETAMINOPHEN 325 MG TAB PO PRN ×2 (13:54→21:39)
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
--- NOTE | 2016-12-31 19:08 | Discharge Instructions ---
Discharge Instructions Date of Service Dec 31, 2016. Admission Reason for Admission: Intractable Vomiting, Left-Sided Chest Wall Pain Discharge Discharge Diagnosis / Problem: Vomiting and L Sided Chest Wall Pain Discharge Goals Goal(s): Decrease discomfort, Improve function, Increase independence Activity Recommendations Activity Limitations: resume your previous activity . Instructions / Follow-Up Instructions / Follow-Up FROM DR. HERMOSILLO new onset type 2 diabetes (A1c 7.3%) -as we discussed - this is something you should be able to "put into remission" with lifestyle change (an average diabetic is about 80% lifestyle and 20% genetic as far as how they got to become a diabetic, which means that diabetics have a huge amount of control "over their fate" with how they choose to make changes!!) -what causes type 2 diabetes is what's called "insulin resistance" -- insulin is a hormone that takes sugar from our bloodstream and puts it into our muscles. whenever we eat something that has a lot of simple carbs in it ( whether sugary or starchy) it will spike a blood sugar - in response to that, your pancreas spikes a bunch of insulin to get that sugar out of your bloodstream. much like a drug addiction, your muscles slowly "want" more and more insulin to get the carbs out of your bloodstream. over time, this becomes a "want for more" insulin than your pancreas is able to make - at that point, sugars start to stay higher, and you show sugar readings consistent with diabetes -the main reason we worry about this is that over the long run, high sugars clog arteries. while the most "famous" diabetes complications are blindness ( high sugar clogging arteries to eyes) nephropathy (high sugars clogging arteries to kidneys) and neuropathy (high sugars clogging arteries that supply the nerves to our legs and feet) actually the most common "high sugars clog arteries" complications are heart attacks and strokes -work towards getting rid of the starchy and sugary foods that you eat - as we discussed, right now (and as a fellow [facility] i sympathize...it's part of our culture) the vast majority of what you eat is starchy/bready and sugary. since we're not talking about a situation after a heart attack, time is on your side. make one positive change a month (maybe start with reserving cookies to being a once a month treat) and then once that change "sticks' move on to the next one (getting away from a sandwich style dinner, starting to work towards exercising, starting to find other stress management habits to get away from stress eating) -as a nice trick to learn from foods and your body, check sugars ~1.5-2 hours after eating. you'll be surprised what you learn -- as a general rule, anything that you ate that bumps your sugar above 150 should be looked at long and hard. things that spike sugars that high clog arteries in the moment, and progress the insulin resistance over time, making you more diabetic (and what's beautiful is as you avoid those foods, you can regress your insulin resistance, making you less diabetic). obviously you can also do "book work" learning about carb content and sugar content in foods, but nothing is quite as powerful of a teacher as eating something, seeing an ugly sugar reading, and saying "well , not doing that again." -exercise is an easy goal to outline - basically the human body is meant to move , but in our modern era our jobs have us sedentary. work towards a goal of 30- 60 minutes of light cardiovascular exercise a day (whether walking, pedaling on a recumbant exercise bike, or whatever...and realize that it might take a few months to work your way up to the 30 minutes, and that's OK) DON'T HOLD YOURSELF TO A STANDARD OF PERFECTION. we all slip up. dust yourself off and move on to the next time. set "perfect" as the goal so taht you're striving to avoid all bad carbs and striving to exercise every single day -- but realize that it's OK that you don't achieve perfect. more movement is always better, less bad carbs are always better - so whatever you're doing is going to improve your situation. -have your PCP follow Hgb A1c levels about every three months. this is a marker of how sugar covered your red blood cells are - and since red cells live about 90 days, it's a nice marker of shelter control. you should see it go DOWN each time it's checked. if it doesn't, take a step back and revisit your efforts and how you can make changes to get there. for perspective w A1c: less than about 5.6 is normal, about 5.7-6.4 is "prediabetic" 6.5 - 7 is diabetic but not really in a worrisome range. above 7 progressively puts you in "high sugars clog arteries" range, with the higher you're running and the longer you're running high causing more damage. (7.3 is in that range, but not so much so as to have to throw medications at you right now - more it's a good "warning shot" to help fire you up for lifestyle change to eliminate this!) rib pain - your flank pain examines as ribs that have spasm in the muscles between them. continue to use the voltaren gel 3-4 times a day every day, and we'd recommend following up with Dr Patricio Mcneil (also silva Lindsey) for ongoing hands-on treatment of the rib muscle spasm. also have your do the stretches twice a day nausea/vomiting - appears related to constipation causing slow GI throughput, and then indigestion/reflux causing things to back up and cause the vomiting. From Ana Bowel Regimen/Nausea: - Continue Colace 100 mg twice a day and Miralax daily to promote good bowel habits - may need to do this long-term and your family doctor can continue to follow this - Will place you on Prilosec and Pepcid for the next 14 days. Then can continue your normal Prilosec that you normally take -- Increased your Prilosec to 40 mg daily to help with your symptoms -- Would recommend talking with your family doctor about possible referral to a GI (stomach) doctor - Can continue Zofran to help calm your nausea and this should start to resolve for you. - Follow the dietary changes as mentioned above and would recommend eating slowly to prevent feelings of feeling overly full that could worsen your nausea Diabetes: - Follow the recommendations as above. - Recommend to monitor your sugars and write them down to discuss with your family doctor. - May need to even use a short-term anti-diabetic medication to keep these sugars under control and prevent the complications that are caused by uncontrolled sugars Weight Gain/Headaches/Blood Pressure: - Continue Lisinopril to help with blood pressure - Would recommend STOPPING HCTZ AND STARTING LASIX 20 MG DAILY - Recommend to continue this until being seen by family doctor - You have gained about 20 lbs and likely this could be from fluid retention - this may be causing your elevated blood pressure - Also recommend follow-up with a sleep study to evaluate for sleep apnea - your family doctor can refer you - this may be causing issues with your blood pressure and headaches Follow-Up: - Please keep your family doctor appointment and plan to have another A1c ( check sugars over long-term) in approx. 3 months Current Hospital Diet Patient's current hospital diet: Diabetes Type 2 Diet, Regular Diet Discharge Diet Recommended Diet: Diabetes Type 2 Diet Pending Studies Studies pending at discharge: no Laboratory Results Hemoglobin A1c Test 12/30/16 00:40 Range/Units Estimated Average Glucose 163 mg/dl Hemoglobin A1c 7.3 H 4.5-5.6 % Medical Emergencies . Who to Call and When: Medical Emergencies: If at any time you feel your situation is an emergency, please call 911 immediately. . Non-Emergent Contact Non-Emergency issues call your: Primary Care Provider Call Non-Emergent contact if: you have a fever, your pain is concerning you, you have any medication questions . . "Provider Documentation" section prepared by Danielito Hermosillo. . VTE Core Measure Inpt VTE Proph given/why not?: Unfractionated heparin SQ, SCD's
[2016-12-31] MEDS ORDERED: ERGOCALCIFEROL 50,000 INTER.UNIT CAP PO ONE (19:09)
[2017-01-01] MEDS: ONDANSETRON INJ 2 MG/ML 2 ML VIAL IV SCH ×3 (00:37→11:58)
[2017-01-01] MEDS: KETOROLAC TROMETHAMINE 30 MG/ML VIAL IV PRN (03:57)
[2017-01-01 04:46] VITALS: BP 138/71; PULSE 90; TEMP 36.5; O2SAT 91
[2017-01-01 07:33] VITALS: BP 156/87; PULSE 84; TEMP 36.4; O2SAT 90
[2017-01-01 07:36] LABS: BASO % 0.4 %; BASO ABS # 0.04 K/uL (0-0.2); COMPLETE YES; EOS % 3.1 %; HEMATOCRIT 32.7 % (37-47); IG% 1.1 %; LYMPH % 17.7 %; MEAN CELL VOLUME 75.9 fL (80-100); MEAN CORPUSCULAR HEMOGLOBIN 23.2 pg (25-34); MEAN CORPUSCULAR HGB CONC 30.6 g/dl (32-36); MONO % 9.1 %; NEUT % 68.6 %; PLATELET COUNT 325 K/uL (130-400); RED BLOOD COUNT 4.31 M/uL (4.2-5.4); WHITE BLOOD COUNT 11.27 K/uL (4.8-10.8)
[2017-01-01 07:47] LABS: PROTHROMBIN TIME (PATIENT) 10.2 SECONDS (9.0-12.0)
[2017-01-01 08:06] LABS: BUN/CREATININE RATIO 19.9 (10-20); CALCIUM 8.1 mg/dl (8.5-10.1); CREATININE 0.7 mg/dl (0.60-1.20); MAGNESIUM 2.5 mg/dl (1.8-2.4); POTASSIUM 3.6 mmol/L (3.5-5.1)
[2017-01-01] MEDS: POLYETHYLENE (MIRALAX) 17 GM PACK PO SCH (08:10)
[2017-01-01] MEDS: LACTATED RINGER'S 1000ML 1,000 ML IV SCH (08:12)
[2017-01-01] MEDS: DOCUSATE SODIUM 100 MG CAP PO SCH (08:12)
[2017-01-01] MEDS: ROPINIROLE HCL 1 MG TAB PO SCH (08:13)
[2017-01-01] MEDS: PANTOprazole SOD 40 MG TAB PO SCH (08:13)
[2017-01-01] MEDS: FAMOTIDINE 20 MG TAB PO SCH (08:13)
[2017-01-01] MEDS: GABAPENTIN 100 MG CAP PO SCH ×2 (08:13→13:45)
[2017-01-01] MEDS: ENOXAPARIN 40 MG/0.4 ML SYR SQ SCH (08:15)
[2017-01-01] MEDS: DICLOFENAC SOD 1% GEL 100 GM TUBE EXT SCH ×2 (08:18→12:07)
[2017-01-01] MEDS: INSULIN ASPART 100 UNITS/ML 3 ML PEN SC SCH ×2 (08:20→12:07)
[2017-01-01] MEDS ORDERED: FERROUS GLUCONATE 324 MG TAB PO SCH (09:00)
[2017-01-01] MEDS ORDERED: CHOLECALCIFEROL 1000 INTER.UNIT TAB PO SCH (09:00)
[2017-01-01] MEDS ORDERED: MRLP17 PO (10:13)
[2017-01-01] MEDS ORDERED: VTMD1000 PO (10:13)
[2017-01-01] MEDS ORDERED: FAMO1TAB47 PO (10:13)
[2017-01-01] MEDS ORDERED: ONDA4TAB10 SL (10:13)
[2017-01-01] MEDS ORDERED: BENZ100C18 PO (10:13)
[2017-01-01] MEDS ORDERED: ERGO500011 PO (10:13)
[2017-01-01] MEDS ORDERED: CLC100 PO (10:13)
[2017-01-01] MEDS ORDERED: VLTG EXT (10:13)
[2017-01-01 11:42] VITALS: BP 183/95; PULSE 82; TEMP 36.7; O2SAT 93
[2017-01-01] MEDS ORDERED: LISINOPRIL 10 MG TAB PO ONE (11:45)
[2017-01-01] MEDS ORDERED: FUROSEMIDE 20 MG TAB PO ONE (11:45)
[2017-01-01] MEDS ORDERED: PANTOprazole SOD 40 MG TAB PO ONE (11:45)
[2017-01-01] MEDS ORDERED: FURO-85 PO (11:57)
[2017-01-01] MEDS ORDERED: OMEP20CA9 PO (11:59)
[2017-01-01 13:44] VITALS: BP 157/84; PULSE 91
[2017-01-01 15:28] VITALS: BP 169/80; PULSE 89; TEMP 37; O2SAT 94
[2017-01-01 15:48] VITALS: BP 169/80; PULSE 89; TEMP 37; O2SAT 94
[2017-01-01] MEDS ORDERED: CZR50 PO (16:32)
[2017-01-01] MEDS ORDERED: ULT/50 PO (16:32)
[2017-01-01] MEDS ORDERED: POTA10CA28 PO (16:33)
--- NOTE | 2017-01-01 17:26 | Discharge Summary ---
Discharge Summary Date of Service Jan 01, 2017. Discharge Summary Admission Date: Dec 30, 2016 at 05:25 Discharge Date: Jan 01, 2017 Discharge Disposition: Home Principal Diagnosis: R Rib Pain and Intractable Vomiting; Diabetes Problems/Secondary Diagnoses: 1. HTN 2. Restless Leg Syndrome 3. GERD 4. Vitamin D Deficiency 5. Thalassemia Immunizations: Have You Had Influenza Vaccine: Unknown History of Tetanus Vaccine?: Unknown History of Pneumococcal: Unknown History of Hepatitis B Vaccine: Unknown Procedures: CHEST CTA for PULMONARY ARTERIES FINDINGS: Hepatic steatosis. The visualized spleen is unremarkable. Trace left pleural effusion. No mediastinal or hilar lymphadenopathy. No fractures within the visualized osseous structures. No pneumothorax. The central airways are patent. Linear densities within the right lung base and patchy densities within the left lung base posteriorly. This is nonspecific but suggestive of atelectasis. A 4 mm subpleural nodule within the right middle lobe on image 107. Normal caliber thoracic aorta with no evidence for dissection. No evidence for pulmonary embolus. IMPRESSION: 1. No evidence for pulmonary embolus. 2. Trace left pleural effusion. 3. Patchy densities within the base of the left lower lobe. This favors atelectasis. A pneumonia could have a similar appearance but is considered less likely. 4. A 4 mm subpleural nodule within the right middle lobe. Please refer to below summary of Fleischner criteria recommendations for follow-up of incidental CT nodules (Seth De La Torre, Guidelines for management of small pulmonary nodules detected on CT scans: A statement from the Fleischner Society, Radiology 237: [phone].) SOLID NODULES Solitary nodule size: <6 mm * Low risk patients: no follow-up needed * high risk patients: optional CT at 12 months Solitary nodule size: 6-8 mm * Low risk patients: follow-up at 6-12 months, then consider further follow-up at 18-24 months * high risk patients: initial follow-up CT at 6-12 months and then at 18-24 months if no change Solitary nodule size: >8 mm * either low or high risk patients - consider follow-up CT at 3 months, and/or CT-PET, and/or biopsy Multiple nodules size: <6 mm * Low risk patients: no routine follow-up * high risk patients: optional CT at 12 months Multiple nodules size: 6-8 mm * Low risk patients: follow-up at 3-6 months, then consider further follow-up at 18-24 months * high risk patients: follow-up at 3-6 months, then at 18-24 months if no change Multiple nodules size: >8 mm * Low risk patients: follow-up at 3-6 months, then consider further follow-up at 18-24 months * high risk patients: follow-up at 3-6 months, then at 18-24 months if no change Note: newly detected indeterminate nodule in persons 35 years of age or older. * Low risk patients: minimal or absent history of smoking and/or other known risk factors * high risk patients: history of smoking or of other known risk factors (e.g. first degree relative with lung cancer, or exposure to asbestos, radon, uranium) * if a nodule up to 8 mm is partly solid or is ground glass further follow-up is required after 24 months to exclude possible slow growing adenocarcinoma (COLLEEN) SUBSOLID NODULES Solitary pure ground-glass nodule * nodule size <6 mm - no CT follow-up required * nodule size >=6 mm - follow-up CT at 6-12 months, then every 2 years until 5 years Solitary part-solid nodule * nodule size <6 mm - no CT follow-up required * nodule size >=6 mm - follow-up CT at 3-6 months. If unchanged, and solid component remains <6 mm, then annual follow-up for 5 years Multiple subsolid nodules * nodule size <6 mm - follow-up CT at 3-6 months, consider further follow-up at 2 and 4 years if stable * nodule size >=6 mm - follow-up CT at 3-6 months, subsequent management based on the most suspicious nodule(s) ABDOMEN AND PELVIS CT WITHOUT CONTRAST FINDINGS: Cholecystectomy. Hepatic steatosis. Patchy densities within the lung bases, left. The right rib the spleen, adrenal glands, pancreas, and kidneys are unremarkable. Contrast within the bladder is also streak artifact. The bladder appears unremarkable. There is a 2.5 cm cyst within the left adnexa/ovary. The uterus is unremarkable. No pelvic free fluid. Suboptimal evaluation for bowel pathology due to the lack of intravenous and oral contrast. However, there is no definite bowel wall thickening or obstruction. Tiny fat-containing umbilical hernia. Stable prominent mesenteric lymph nodes within the right upper abdomen. Trace left pleural effusion. IMPRESSION: 1. Trace left pleural effusion. 2. Patchy bibasilar densities, left greater than right. This is nonspecific but favors atelectasis. Pneumonia could also have a similar appearance. 3. Hepatic steatosis. 4. Cholecystectomy. 5. No definite bowel wall thickening or obstruction. 6. A 2.5 cm cyst within the left adnexa/ovary. ECHOCARDIOGRAM: * -- Conclusions -- * 1. Normal left ventricular size and systolic function. EF 65-70%. No regional wall motion abnormalities. Mild concentric left ventricular hypertrophy. Type 1 diastolic dysfunction. * 2. Sclerotic aortic valve without significant stenosis. * 3. Compared to prior study on 06/05/2008, aortic valve now appears sclerotic. Medication Reconciliation New Medications: Benzonatate (Tessalon Perles) 100 Mg Cap 1 CAP PO TID PRN for Cough for 3 Days, #9 CAP Furosemide (Lasix) 20 Mg Tab 20 MG PO DAILY for 30 Days, #30 TAB Losartan Potassium (Losartan Potassium) 50 Mg Tab 50 MG PO DAILY, #30 TABS 5 Refills Ondasetron Odt (Zofran Odt) 4 Mg Tab 4 MG SL Q6H PRN for Nausea for 5 Days, #20 TAB Potassium Chloride (Micro-K Ext Rel) 10 Meq Capcr 10 MEQ PO DAILY, #30 CAP 0 Refills Cholecalciferol (Vitamin D3) 1,000 Inter.unit Tab 2000 INTER.UNIT PO QAM for 30 Days, #60 TAB Diclofenac Sod (Voltaren) 100 Appln/100 Gm Gel 1 APPLN EXT QID for 20 Days, #1 TUBE Docusate Sodium (Docusate Sodium) 100 Mg Cap 100 MG PO BID for 30 Days, #60 CAP Ergocalciferol (Vitamin D 97178 Unit) 50,000 Unit Cap 33807 INTERUNIT PO Hagen@0900, #8 CAP Famotidine (Famotidine) 20 Mg Tab 20 MG PO BID for 14 Days, #28 TAB Polyethylene (Miralax) 17 Gm Pow 17 GM PO DAILY for 30 Days Changed Medications: Omeprazole (Prilosec) 20 Mg Cap 40 MG PO DAILY for 30 Days, #60 TABS (Changed from: 20 MG) Tramadol Hcl (Ultram) 50 Mg Tab 50 MG PO Q6H PRN for Pain, #30 TAB 0 Refills (Changed from: BID; Refills: ) PRN PAIN Continued Medications: Gabapentin (Gabapentin) 100 Mg Cap 100 MG PO TID Ropinirole Hydrochloride (Requip) 2 Mg Tab 2 MG PO BID Discontinued Medications: Hydrochlorothiazide (Hctz) 25 Mg Tab 25 MG PO QAM, TAB Discharge Exam Review of Systems: Constitutional: No fever, No chills ENT: No nasal symptoms, No sore throat, No trouble swallowing Respiratory: + cough, + sputum, No shortness of breath Cardiovascular: No chest pain Abdomen: No pain, No nausea, No vomiting, No diarrhea, No constipation Musculoskeletal: + joint pain (L lower Ribs/flank), No calf pain Genitourinary - Female: No dysuria Hematologic / Lymphatic: No abnormal bleeding/bruising Integumentary: No rash Physical Exam: General Appearance: WD/WN, no apparent distress, + obese ENT: hearing grossly normal Neck: supple, no JVD, trachea midline Respiratory/Chest: no respiratory distress, no accessory muscle use, + crackles (mild at bases) Cardiovascular: regular rate, rhythm, no gallop, no murmur Abdomen / GI: normal bowel sounds, non tender, soft Extremities: no calf tenderness Neurologic/Psychiatric: alert, oriented x 3 Skin: normal color, warm/dry Hospital Course ADMISSION: The patient is a 51-year-old female who presents to the emergency department with worsening left upper quadrant abdominal pain, with intermittent radiation into her chest, worsening with deep inspiration, and worsening over the past 2 weeks, in particular over the past 2 days. She also reports that over the past year, almost every night as she is going to bed, she has episodes of nausea and vomiting, during which she brings up partially digested food, as was noted by nursing in the ED tonight. She does drive approximately 50 miles total each day to and from work. She has not had any sick exposures that she is aware of, has not had any questionable food intake. She was recently treated for bronchitis reportedly with Levaquin and azithromycin. HOSPITAL COURSE: Ms. Reece was admitted for intractable vomiting and L Flank/ Rib pain. No direct cause of flank/rib pain identified and possibly related to indigestion/reflux and constipation with slow motility. Could not complete R/O gastroparesis but could have other causes. At this time, utilizing a scheduled bowel regimen may help her symptoms. Will continue Colace BID and daily Miralax. Increased her Prilosec to 40 mg daily and added Pepcid for dual therapy x 14 days. She does have an A1c of 7.3 but would like to implement dietary and lifestyle factors first. Long discussions had about diet/exercise/ diabetes and written instructions provided. Rx given for glucometer and recommend logging sugars and follow-up in 3 months for new A1c. In regards to her rib/flank pain she will utilize Voltaren gel and OMT with Dr. Mcneil. She did recently have an acute bronchitis and may be cause of her discomfort. On day of discharge, patient did express rapid weight gain and does report fluid retention. Will D/C her HCTZ and start Lasix 20 mg daily with BMP in next 3-5 days to monitor electrolytes and kidney function. Started Losartan for BP coverage. Will continue to improve Vit D levels and would anticipate recheck in 3 months. Obtained two step which did not support need for supplemental O2. Would recommend outpatient sleep study for sleep apnea as cause of headaches and elevated BP. Total Time Spent: Greater than 30 minutes This includes examination of the patient, discharge planning, medication reconciliation, and communication with other providers. Discharge Instructions Please refer to the electronic Patient Visit Report (Discharge Instructions) for additional information. Additional Copies To Korina Carr M.D.
[2017-01-07] MEDS ORDERED: ERGOCALCIFEROL 50,000 INTER.UNIT CAP PO SCH (09:00)
== END 2017-01-01 16:59 | disposition home or self-care (01) | DRG 74 ==
LOC: C.EDB 00:14 → C.MED 05:25 → ENRESERV 05:42
PROVIDERS: ADMIT Hospitalist; ATTEND Internal Medicine
DX: E11.43 Type 2 diabetes mellitus with diabetic autonomic (poly)neuropathy (principal); Z68.43 Body mass index [BMI] 50.0-59.9, adult; K59.01 Slow transit constipation; K21.9 Gastro-esophageal reflux disease without esophagitis; M99.08 Segmental and somatic dysfunction of rib cage; E11.65 Type 2 diabetes mellitus with hyperglycemia; K76.0 Fatty (change of) liver, not elsewhere classified; E86.0 Dehydration; E11.42 Type 2 diabetes mellitus with diabetic polyneuropathy; I10 Essential (primary) hypertension; G25.81 Restless legs syndrome; J45.909 Unspecified asthma, uncomplicated; G47.30 Sleep apnea, unspecified; E66.9 Obesity, unspecified; Z51.81 Encounter for therapeutic drug level monitoring; Z79.899 Other long term (current) drug therapy; Z82.49 Family history of ischemic heart disease and other diseases of the circulatory system; Z83.3 Family history of diabetes mellitus

== ENCOUNTER → 2017-06-22 | Outpatient (CLI) | payer OTHER ==
[~2017-06-22] MED LIST changes: +CLC100 PO; +CZR50 PO; +ERGO500011 PO; +FAMO1TAB47 PO; -HYDR25TA4 PO; -LISI-461 PO; +MRLP17 PO; +POTA10CA28 PO; +VLTG EXT; +VTMD1000 PO
== END | disposition home or self-care (01) ==
LOC: C.PAPS 13:29
PROVIDERS: ATTEND Obstetrics & Gynecology
DX: Z12.4 Encounter for screening for malignant neoplasm of cervix (principal)

== ENCOUNTER → 2017-07-05 | Outpatient (CLI) | payer OTHER ==
--- NOTE | 2017-07-05 14:16 | MAMMOGRAPHY REPORT ---
BILATERAL DIGITAL DIAGNOSTIC MAMMOGRAM TOMOSYNTHESIS WITH CAD AND TARGETED RIGHT ULTRASOUND: 8 CLINICAL HISTORY: The patient reports brown/green right nipple discharge on and off since 1990. The discharge is nonspontaneous and on expression only. She denies any left nipple discharge, palpable l umps, skin changes, or other complaints. Family history of breast cancer in aunts and cousins. TECHNIQUE: Breast tomosynthesis in addition to standard 2D mammography was performed. Current study was also evaluated with a Computer Aided Detection (CAD) system. Bilateral CC and MLO 2D and tomosyn thesis images were obtained. COMPARISON: Comparison is made to exams dated: 10/07/2013 mammogram and 07/30/2012 mammogram. BREAST COMPOSITION: The tissue of both breasts is heterogeneously dense, which may obscure small mas ses. FINDINGS: There are no suspicious masses, calcifications, or areas of architectural distortion noted in either breast. There has been no significant interval change mammographically compared to prior e xams. Scattered bilateral benign-appearing calcifications are not significantly changed. Bilateral asymmetries are stable, including an asymmetry within the left lateral breast middle depth on the cc view which is stable dating back to at least the 2012 exam. Targeted ultrasound was performed of the right subareolar breast. The background parenchymal echotex ture is heterogeneous which somewhat reduces the sensitivity of the exam. No clear intraductal mass or other suspicious sonographic abnormality is evident. Incidentally noted were a few small cysts du ring the exam, including a small 6 x 5 mm anechoic benign cyst in the right 3:00 subareolar breast an d a 3 mm anechoic benign simple cyst in the right 1:00 subareolar breast and a 4 mm anechoic cyst in the right 11:00 periareolar breast. IMPRESSION: ACR BI-RADS CATEGORY 2: BENIGN, TARGETED ULTRASOUND ACR BI-RADS CATEGORY 2: BENIGN No suspicious mammographic or sonographic abnormality to explain nonspontaneous right nipple discharg e. There is no mammographic evidence of malignancy in either breast. Recommend clinical follow-up f or right nipple discharge; consider surgical consultation if the discharge is clinically suspicious. Also recommend routine bilateral screening mammograms in one year. The patient has been verbally notified of the results. Approximately 10% of breast cancers are not detected with mammography. A negative mammographic report should not delay biopsy if a clinically suggestive mass is present. Sho Acevedo M.D. ah/:07/05/2017 09:52:47 Repairer Controller Tester: Mignon ADAMS(R)(M), [facility] letter sent: Normal 1/2 BI-RADS Code: ACR BI-RADS Category 2: Benign Ultrasound BI-RADS: ACR BI-RADS Category 2: Benign
== END | disposition home or self-care (01) ==
LOC: C.MAMM 08:01
PROVIDERS: ATTEND Obstetrics & Gynecology
DX: N64.52 Nipple discharge (principal)

== ENCOUNTER 2019-05-02 16:46 | Inpatient (IN) ==
[2019-05-02] MEDS ORDERED: NiCARDipine HCL INJ 2.5 MG/ML 10 ML AMP ONE (17:06)
[2019-05-02] MEDS ORDERED: HEPARIN (PORCINE) 1000 UNIT/ML 10 ML (CATH LAB USE ONLY) ONE (17:06)
[2019-05-02] MEDS ORDERED: fentaNYL citrate 100 MCG/2 ML VIAL ONE (17:06)
[2019-05-02] MEDS ORDERED: MIDAZOLAM HCL 1 MG/ML 2ML VIAL ONE (17:07)
[2019-05-02] MEDS ORDERED: NITROGLYCERIN/D5W 100MCG/ML 20ML SYR ONE (17:07)
--- NOTE | 2019-05-02 17:16 | Pre Anesthesia Assessment ---
Date of Service May 02, 2019 Pre Sedation Assessment Vital Signs Pulse Resp BP Pulse Ox 05/02/19 17:01 96 H 18 172/92 H 94 Cardiovascular + regular rate + murmur Respiratory normal respiratory effort, lungs clear to auscultation Pre-Sedation Airway Assessment Smoking Status: Never smoker Hx Sleep Apnea: No Short, Thick Neck: Yes Thyromental Distance: > or= 3.5 Finger Breadths Oral Cavity: + WNL Mallampati Class: IV ASA: ASA3 NPO Status Date of Last Intake of Fluids: 05/01/19 Time of Last Intake of Fluids: 12:00 Date of Last Intake of Solid Food: 05/01/19 Time of Last Intake of Solid Foods: 12:00 Procedure Planning Contraindications for Sedation: none Current Medications Reviewed: Yes Notes The planned sedation has been discussed with the patient. Informed Consent was obtained. I have identified the patient, determined the appropriateness of sedation and have assessed the patient immediately prior to the procedure. All medicine(s) and interventions are by my order.
--- NOTE | 2019-05-02 17:16 | History & Physical Bridge Note ---
Date of Service May 02, 2019 History & Physical Bridge Note I have examined the patient, reviewed the History & Physical and in the interval since the performance of the History & Physical I have noted the following changes of clinical significance: no changes noted
--- NOTE | 2019-05-02 17:53 | Cardiac Catheterization ---
[facility] Data: [employer] Cardiac Status Clinical evaluation leading to the procedure CAD Presenation: Unstable angina Anginal Classification: CCS IV Heart Failure: No Cardiogenic Shock within 24 Hours: No Cardiac Arrest within 24 Hours: No Imaging Studies Past 6 Months: No Stress Studies Past 6 Months: No Standard Exercise Test: No Stress Echocardiogram: No Stress Testing w/SPECT MPI: No Cardiac CTA: No Coronary Anatomy Dominant: Right Left Ventricular Angiography EF (%): n/a Diagnostic Physicians Name: Bruno Arechiga MD Status: Urgent (having intermittent rest pain today) Closure Device Percutaneous Entry Location: Radial Closure Device: Radial Band Recommendations: Management Recommendatons (as above) Cardiac Cath Procedure Full Procedure Date May 02, 2019 Pre-Procedure Diagnosis Pre-Procedure Diagnosis: Angina AUC Score AUC Score: 7 Post-Procedure Diagnosis Post-Procedure Diagnosis: Normal Coronary Arteries Procedure(s) Performed Procedure(s) Performed: Coronary Angiography and Left Heart Cath Transmitter Operator Bruno Arechiga MD Freight Car Cleaner(s) Tania Stephens Estimated Blood Loss Estimated Blood Loss: < 25 ml Medication(s) Medication(s): Fentanyl, Heparin, Lidocaine 1%, Nicardipine and Versed Summary of Findings Procedures: 1. Coronary angiography 2. Left heart catheterization 3. Moderate sedation Coronary angiography: 1. Left main coronary: LMCA is large in caliber. No significant CAD. 2. Left anterior descending: LAD is a large-caliber vessel that extends to the apex. Large caliber D1. No significant CAD within the LAD territory. 3. Circumflex: The circumflex is a large-caliber vessel. Large caliber OM1. No significant CAD within the circumflex system. 4. Right coronary artery: The RCA is large and dominant. Large PDA and PL branch. No significant CAD within the RCA system. 5. Ramus intermedius: The ramus is a large-caliber vessel. No significant CAD. Left heart catheterization: 1. Left ventriculography was not performed. 2. Normal LVEDP; 10 mmHg. 3. No significant aortic stenosis. Peak to peak gradient across aortic valve was 5-10 mmHg. Moderate sedation: 1. Sedation start time: 1722 2. Sedation end time: 1742 Impression: 1. No significant CAD. 2. Normal left-sided filling pressure. 3. No significant aortic stenosis with peak to peak gradient 5 to 10 mmHg. Plan: 1. Nonischemic chest pain. 2. Continue risk factor modification. 3. Follow-up with PCP for further evaluation of her chest pain. Hemodynamics Rest Ao:: 120/67 Final Ao: 115/62 LV: 130/2/10 Recommendations Recommendations: Management Recommendatons (as above) Specimens Specimens: None Radiation Exposure (mGy) 788 mGy. Flouro time 3 min. Contrast (mls) 50 ml Procedural Complication(s) None Disposition PCU I attest to the content of the Intraoperative Record and any orders documented therein. Any exceptions are noted below. [facility] Card Cath Procedure Codes Cardiac Catheterization Procedure 1: Cardiovascular Cath Procedures: 72090 Coronaries and LHC (+/-LV) Moderate Sedation Procedure 1: Sedation/Anesthesia: 64320 Mod Sedation by the same physician;Init15 Min Child Age 5 & Up Procedure 2: Sedation/Anesthesia: 39501 Mod Sedation by the same physician; Ea [id number] Minutes PG Care Time/CCT Total # of Minutes Spent Total Time Spent with Patient: Total time spent is greater than 50% in coordination of care (as documented) at patient's floor/unit and/or counseling patient:
[2019-05-02] MEDS ORDERED: SODIUM CHLORIDE 0.9% 500 ML IV PRN (17:54)
[2019-05-02] MEDS ORDERED: ONDANSETRON INJ 2 MG/ML 2 ML VIAL IV PRN (17:54)
[2019-05-02] MEDS ORDERED: ACETAMINOPHEN 325 MG TAB PO PRN (17:54)
--- NOTE | 2019-05-02 17:56 | Post Anesthesia Assessment ---
Date of Service May 02, 2019 Post Sedation Assessment Vital Signs Pulse Resp BP Pulse Ox 05/02/19 17:01 96 H 18 172/92 H 94 Recovery Score Activity: Moves 4 extremities Respiration: Deep Breath/Cough Circulation: +/-20% PreAnes Value Consciousness: Fully Awake Oxygen Saturation: > 92% On Room Air Discharge Sedation Level of Care: Fast Track Phase II Post Sedation Plan On clinical assessment, the patient appears to have tolerated the sedation without complications. Patient is recovering as anticipated. Patient will continue to be monitored by nursing and may be discharged when sedation discharge criteria are met per below protocol. Upon Completions of procedure up to 15 minutes continue every 5 minute vital signs and the P.A.R. score; then discharge to a Phase I or Fast Track to Phase II per the following guidelines: * Discharge Patient to appropriate Phase II area if PAR is 8 or greater or return to pre- procedure baseline. The post - procedure orders will be as directed. * If PAR score is less than 8 or not return to pre-procedure baseline then patient will follow Phase I monitoring till PAR is reached for Phase II. The Phase I may be done in procedure room or may call to secure a Phase I area. * If naloxone or flumazenil are used for reversal, hold in Phase I for continued monitoring from when last reversal dose was given for a minimum of 60 minutes or longer pending the nurse and/or physician discretion of patient condition before discharge to Phase II. Please call the Sedation Physician to re-evaluate and complete post-note for discharge to Phase II area. Do NOT discharge from procedure sedation or Phase 1 until post- sedation evaluation note is complete by procedure /sedation MD Sedation Discharge Instructions to be given to the patient at discharge to home.
[2019-05-02] MEDS ORDERED: SODIUM CHLORIDE 0.9% 1000ML 1,000 ML IV SCH (18:00)
--- NOTE | 2019-05-02 18:39 | Discharge Summary ---
Date of Service May 02, 2019 Admission HPI Per Admitting Provider Mrs. Reece is a pleasant 53-year-old female with a history significant for type 2 diabetes, hypertension, and strong family history for premature CAD who was admitted from the cardiology office for symptoms concerning of unstable angina. She was experiencing symptoms with exertion, and even at rest, including while walking into the office and after she presented to the cardiac catheterization holding in. She has been seen in the emergency department as well recently. She was directly admitted but presented to the cardiac catheterization for the procedure, prior to going to her PCU bed. Principal Diagnosis Noncardiac chest pain. No significant CAD. Discharge Exam Gen.: No acute distress. Alert and oriented. HEENT: Anicteric sclera. Neck: Thick neck, but no appreciable JVD. Cardiac: Regular. Normal S1-S2. 1/6 systolic murmur. No rubs, or gallops. Pulmonary: Clear to auscultation bilaterally without wheezes, rales, or rhonchi. Abdomen: Soft, nontender, nondistended, with normoactive bowel sounds. No bruits noted. Extremities: No edema or cyanosis. Psychiatric: Affect appears appropriate. Discharge Data Allergies Allergy/AdvReac Type Severity Reaction Status Date / Time metronidazole AdvReac Intermediate headache Verified 05/02/19 17:04 erythromycin base AdvReac Mild UPSET Verified 05/02/19 17:04 STOMACH lisinopril AdvReac Mild cough Verified 05/02/19 18:08 Procedures Performed Operation Date: 05/02/19 17:00 Actual Procedures s Cineradiography w/Routine Exam - Bruno Arechiga MD p Cath, Left with Cors and Vent - Bruno Arechiga MD Cardiac catheterization: 1. No significant CAD. 2. No significant aortic stenosis. 3. Normal LVEDP. Ordered Studies 05/02/19 17:06 CL Cath Imgs for PACS use only Routine Hospital Course (1) Chest pain: (2) Hypertension: (3) Elevated transaminase level: She reported directly to the cardiac catheterization lab given her intermittent symptoms, including at rest. Cardiac catheterization demonstrated no sign ificant CAD. There is no hemodynamically significant aortic stenosis. Her LVEDP was normal. She was very relieved. Due to timing of the cardiac catheterization, she was sent to the PCU for observation while recovering and awaiting for hemostasis of her right radial cath site. Upon completion of hemostasis, she was then ready for discharge. She has ensured me that her would be able to come pick her up and drive her home. ASSESSMENT/PLAN: 1. Chest pain: Initially concerning for unstable angina given strong family history and other personal risk factors for CAD. No significant CAD on cardiac catheterization however. Recommend that she follow-up with her PCP for further evaluation of noncardiac chest pain. 2. Hypertension: Blood pressure reasonably controlled. Continue home regimen. 3. Elevated transaminase levels: She is aware of these abnormal labs which were noted previously by other providers. She states that she has pending imaging which has been arranged by other providers. 4. Disposition: Follow-up with her PCP. Total Time Total Time Spent Total Time Spent (In Minutes): 25 Total Time Includes: Examination of the Patient, Discharge Planning and Medication Reconciliation Discharge Plan Discharge Items Patient Disposition: Home - Self-Care Reason For Visit: UNSTABLE ANGINA Discharge Diagnosis: No significant coronary artery disease. Activity: Per Instructions section Non-emergency contact: Primary Care Provider and Promotional Marketing Analyst Call non-emergency contact if: you have any medication questions, your symptoms worsen, your wound has increased redness, your wound has increased drainage and your wound pain has increased Follow-up/Referrals: Korina Carr MD [Primary Care Provider] - Diet: Carb Consistent or DM2 Addtl Attending Provider Instructions: ACTIVITY RECOMMENDATIONS: Excess manipulation of the wrist should be avoided for the next 24-48 hours. * No lifting over 2 pounds (approximately a 1/2 gallon of milk) with the utilized arm for 24 hours. * No strenuous activity such as bowling or tennis for 3 days. * Keep the site of the procedure covered with a bandage for 24 hours. *You may shower the day after the procedure. Do not take a tub bath or submerge the puncture site in water for the next 3 days. *Do not operate any motorized equipment for 3 days. SPECIAL CARE INSTRUCTIONS: The site may be slightly bruised and sore following your procedure. Should any of the following occur, contact the DrJeevna who performed your procedure. 1. Redness/inflammation, swelling, chills, or fever, or colored drainage at procedure site within 3-7 days after your procedure. 2. Coldness, discoloration, ongoing numbness, severe pain, or swelling. Expect mild tingling of hand and tenderness at the puncture site for up to three days. If this persists beyond three days, or other symptoms develop, notify the Dr. who performed your procedure. BLEEDING: If the procedure site on your wrist begins to bleed, do not panic 1. Place 1 or 2 fingers firmly just slightly above the insertion site to stop the bleeding. You may be able to feel your pulse as you hold pressure. 2. Lift your finger after 5 minutes to see if the bleeding has stopped. 3. Once the bleeding has stopped, gently wipe the wrist area clean with a bandage. * If the bleeding from your wrist does not stop after 10 minutes, or if there is a large amount of bleeding or spurting, call 911 (do not drive yourself to the hospital). SKIN IRRITATION: * You may experience some redness and/or swelling in the area where radiation was administered. If any skin irritation occurs, please contact your family physician. FOLLOW UP VISIT: 1. Follow up with your PCP. 2. There were no changes made to your medications. 3. Keep any scheduled doctor appointments. Pending Studies at Discharge: Yes Studies:: liver study as ordered by your PCP Stand-Alone Forms: My [facility], Smoking Cessation Medications and DC Order Prescriptions: Continued valacyclovir 500 mg tablet 500 mg PO BID PRN (Reason: herpes outbreak) Qty: 36 RF: 5 gabapentin 300 mg capsule 300 mg PO BID Qty: 180 RF: 3 furosemide 20 mg tablet 20 mg PO DAILY Qty: 90 RF: 3 metformin 1,000 mg tablet 1,000 mg PO BID Qty: 180 RF: 3 losartan 50 mg tablet 50 mg PO DAILY Qty: 90 RF: 3 gabapentin 100 mg capsule 100 mg PO DAILY RF: 0 hydrochlorothiazide 25 mg tablet 25 mg PO DAILY Qty: 30 RF: 2 ropinirole 2 mg tablet 4 mg PO QPM RF: 0 Discharge Orders: Discharge Order (Routine); Ordered 05/02/19 Ordered By: Bruno Arechiga Admission Data Admit Date/Time: 05/02/19 18:17 Attending Provider: Bruno Arechiga Admit Provider: Bruno Arechiga Primary Care Provider: Korina Carr Other Interventions: Discharge Summary Assessment (RN) Last Done: 05/02/19 20:00 DC Date/Time DO NOT enter until pt leaves facility: 05/02/19 20:25 Coding Level of Care Code 28248 OBS Care - Discharge Diagnoses Chest pain R07.9 Chest pain type: unspecified Hypertension I10 Elevated transaminase level R74.0 Time Spent (min) 25
[2019-05-02] MEDS ORDERED: ALUMINUM/MAGNESIUM SUSP 30 ML UDC PO STA (18:50)
[2019-05-02 19:58] VITALS: BP 136/74; PULSE 78; TEMP 98.2; O2SAT 97
== END 2019-05-02 20:25 | disposition home or self-care (01) | DRG 287 ==
LOC: 2S 16:48 → OBSVTOIN 18:17 → INTOOBSV 18:17

== ENCOUNTER 2020-07-22 00:23 | Inpatient (IN) ==
[2020-07-22] MEDS ORDERED: ACETAMINOPHEN 1,000 MG/100 ML VIAL IV STA (00:43)
[2020-07-22] MEDS ORDERED: diphenhydrAMINE 50 MG/ML VIAL IV STA (00:43)
[2020-07-22] MEDS ORDERED: DROPERIDOL 5 MG/2 ML VIAL IV STA (00:43)
[2020-07-22] MEDS ORDERED: SODIUM CHLORIDE 0.9% 1000ML 1,000 ML IV ONE (00:43)
[2020-07-22] MEDS ORDERED: MAGNESIUM SULFATE / D5W 1 GM/100 ML BAG IV STA (00:45)
--- NOTE | 2020-07-22 01:17 | Emergency Department Note ---
Impression & Plan Dysesthesia of face ED Provider Note NAME: TERELL LEONARD AGE: 54 SEX: F : 1965 ARRIVES VIA: Walk-In INFORMANT: Patient, ED PROVIDER(S): Justyn Hou MD CHIEF COMPLAINT: numbness and tingling to Rt side of body HPI: This is a 54-year-old female who presents to the emergency department, concerned about a stroke. The patient reports she has numbness and tingling to the right side of her face her upper chest and her right arm. The patient reports that this started at 2030 last evening. She denies any weakness. The patient notes that she started getting a headache on her way to the hospital. S he describes the pain as an aching sensation to the right muslim. She reports she has had headaches like this previously. She denies any fevers or chills. ROS: See above HPI for pertinent positives & negatives. A total of 10 systems reviewed and were otherwise negative. PAST MEDICAL HISTORY: See Below PAST SURGICAL HISTORY: See Below FAMILY HISTORY: See Below SOCIAL HISTORY: See Below HOME MEDICATIONS: See Below ALLERGIES: See Below VITALS: See Below PHYSICAL EXAMINATION: VITAL SIGNS - Vital signs and nursing notes were reviewed. GENERAL - 54-year-old female appearing stated age who is in no acute distress. Communicates well with provider and answers questions appropriately. SKIN - Without rashes. HEAD - NC/AT. EYES - PERRL with EOMI bilaterally. Sclera anicteric. Palpebral conjunctiva pink and moist with no injection noted. EARS - No deformities of external structures noted on gross examination bilaterally. NOSE - Midline and without cyanosis. No epistaxis or purulent drainage noted. Septum midline without deviation or septal hematoma noted. MOUTH/OROPHARYNX - Without perioral cyanosis. Buccal mucosa pink and moist and without leukoplakia. Tongue midline with equal elevation of palate bilaterally. No tonsillar hypertrophy, erythema, or exudates noted. NECK - Neck with FROM. Supple to palpation.No nuchal rigidity. LUNGS - Chest wall symmetric without accessory muscle use, intercostals retractions, or central cyanosis. Normal vesicular breath sounds CTA B/L. No wheezes, rales, or rhonchi appreciated. CARDIAC - RRR with S1/S2. No murmur, rubs, or gallops appreciated. ABDOMEN - Abdominal contour without pulsations or visible masses. BS normoactive all four quadrants. No tenderness, palpable masses, hepatosplenomegaly, or ascites noted. EXTREMITIES - No clubbing or peripheral cyanosis. No pretibial edema present. +3/5 radial, posterior tibial, and dorsalis pedis pulses palpated throughout. +5/5 strength noted in UE/LE bilaterally. NEUROLOGIC - Cranial nerves II through XII grossly intact. Sensory intact to light touch throughout. Patellar reflexes +2/4. PSYCH - A&Ox3 and cooperates fully with examiner. Pt is very pleasant and interacts well with examiner. MEDICAL DECISION MAKING: Patient was seen and evaluated as above in room B3. Review was performed of nursing notes and vital signs. I did review pertinent previous visits and patient history. After obtaining a thorough history and physical examination the above work up was performed. This 54-year-old female who presents emergency department complaining of numbness and tingling to her right arm right side of her chest as well as her face. She is also having a headache. Based on this I suspect that the patient is having an atypical migraine. She was given magnesium and normal saline bolus droperidol as well as Benadryl and Toradol for her symptoms. Patient was sent for an MRI. Her EKG is unchanged from previous. MRI is concerning for stroke. Based on this I do feel the patient needs to be admitted to the hospitalist service I did discuss the case with the hospital service. Patient was given 324 mg of aspirin. I will note she is not a candidate for TPA due to the small stroke scale. While in the department, I personally reevaluated the patient several times and each time the patient was found to be resting comfortably. The patient was educated upon management, educated upon todays findings/results, educated upon importance of follow up from today's visit, educated upon symptoms in which to return, had questions answered prior to discharge, verbalized understanding, and was discharged home in good condition. An order was placed for continuous cardiac monitoring. The monitor shows a rate of 90 with Normal Sinus rhythm. The patient was evaluated during a period of high volume and high acuity during the global COVID-19 pandemic, and that diagnosis was suspected/considered upon their initial presentation. Their evaluation, treatment and testing was consistent with current guidelines for patients who present with complaints or symptoms that may be related to COVID-19. Patient was seen while provider was wearing PPE. Triage Nursing notes reviewed. Prior medical records reviewed Vital Signs: reviewed and remarkable for no significant abnormalities Differential diagnosis: Infection, dehydration, metabolic abnormality, hypo/hyperglycemia, electrolyte disturbance, anemia, hypoxia, cardiac sources, intracerebral event, toxicologic, neurologic, as well as other pathologies. ER treatment provided: See below Diagnostics interpreted by me: ECG: EKG shows a normal sinus rhythm prolonged QT no ST elevation or depression QTC is 41 ventricular rate is 86 EKG is compared to 04/21/2019 no significant ch anges found Laboratory studies: As stated above and show below. Imaging studies: See below Past Med/Surg History Medical History Acid reflux Alpha thalassemia Asthma Cervical disc disease Edema H. pylori infection Hypertension Obesity Restless leg syndrome Snoring Type 2 diabetes mellitus Surgical History History of arthroscopy of right shoulder History of cholecystectomy History of colonoscopy History of dilatation and curettage History of esophagogastroduodenoscopy (EGD) History of gynecologic surgery History of incision and drainage History of tooth extraction History of total bilateral knee replacement (TKR) History of wisdom tooth extraction S/P unilateral salpingo-oophorectomy S/P unilateral salpingo-oophorectomy Family History Sister Diabetes Uterine cancer Grandmother (Maternal) Diabetes Father Colorectal cancer Family/Other Cardiac disorder Hypertension Cancer Breast cancer Prostate cancer Myocardial infarction Aunt Breast cancer Mother Cervical cancer Diabetes Heart disease Renal failure Brother Myocardial infarction Other No family history of adverse response to anesthesia Social History Smoking Status: Never smoker Second Hand Exposure: No (work environment); Hx Alcohol Use: No Hx Substance Use: No Preferred Language: Senegalese Communication Ability: Effective Sexologist Required: No Beliefs That Will Affect Care: None marital status: marital status details: [place] is Current Living Situation: Spouse 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 [employer] Feels Safe at Home: Yes Dental Care, Regularly: Yes Physical Activity Frequency: 1-2 Times per Week Assistive Devices: None Allergies Allergies Allergy/AdvReac Type Severity Reaction Status Date / Time metronidazole AdvReac Intermediate headache Verified 07/27/20 09:47 erythromycin base AdvReac Mild UPSET Verified 07/27/20 09:47 STOMACH lisinopril AdvReac Mild cough Verified 07/27/20 09:47 Home Meds Home Medications Medication Instructions Recorded Confirmed cholecalciferol (vitamin D3) 250 mcg PO DAILY 07/22/20 07/27/20 [Vitamin D3] gabapentin 300 mg PO AMHS 07/22/20 07/27/20 aspirin 81 mg tablet,delayed 81 mg PO DAILY 07/23/20 07/27/20 release atorvastatin 40 mg tablet 40 mg PO DAILY 07/23/20 07/27/20 diphenhydramine HCl PO 3XWK 07/27/20 07/27/20 diphenhydramine HCl 50 mg capsule 50 mg PO HS cap 07/27/20 07/27/20 Previous Rx's Medication Instructions Recorded pimecrolimus 1 % topical cream 1 applic TOPICAL BID #30 g 10/13/19 valacyclovir 500 mg tablet 500 mg PO BID PRN #36 tab 01/14/20 cyclobenzaprine 5 mg tablet 5 mg PO HS PRN #30 tab 04/06/20 furosemide 20 mg tablet 20 mg PO DAILY #90 tab 04/06/20 doxycycline monohydrate 40 mg 40 mg PO DAILY #90 ea 04/15/20 capsule,immediate - delay release gabapentin 100 mg capsule 100 mg PO DAILY #90 cap 04/19/20 metformin 1,000 mg tablet 1,000 mg PO BID #180 tab 04/19/20 ropinirole 2 mg tablet 4 mg PO QPM #180 tab 04/19/20 losartan 50 mg tablet 50 mg PO DAILY #90 tab 05/21/20 cyanocobalamin (vitamin B-12) 1,000 mcg PO DAILY #30 cap 05/26/20 1,000 mcg capsule semaglutide 0.25 mg SUBCUT WEEKLY #1.5 ml 05/26/20 hydroxyzine HCl 25 mg tablet 25 mg PO Q8H PRN #30 tab 07/23/20 valacyclovir 1 gram tablet 1,000 mg PO TID 7 Days #21 tab 07/23/20 Results & Data (ED) Vital Signs Vital Signs - 24 hr 07/22/20 00:26 Temperature 36 C L Temperature Source Temporal Artery Scan Pulse Rate 90 Respiratory Rate 20 Blood Pressure 169/85 H Blood Pressure Mean 113 Blood Pressure Position Sitting Pulse Oximetry 98 Oxygen Delivery Method Room Air Sepsis Recent Fever Within 48 Hours No Sepsis New/Unexplained Change in Mental Status No Sepsis Action Taken by Nursing No Action Required Home Medications Current Medication List: was personally reviewed by me Laboratory Data Attestation: I reviewed the patient's lab results. Result diagrams: 07/22/20 01:09 07/22/20 01:09 Lab Results 07/22/20 07/22/20 07/22/20 Range/Units 01:09 01:09 01:09 WBC 12.66 H (4.8-10.8) K/uL RBC 5.12 (4.2-5.4) M/uL Hgb 12.8 (12.0-16.0) g/dL Hct 40.4 (37-47) % MCV 78.9 L (80-100) fL MCH 25.0 (25-34) pg MCHC 31.7 L (32-36) g/dL RDW Std Deviation 44.9 (36.4-46.3) fL RDW Coeff of Deepak 15.6 H (11.5-14.5) % Plt Count 296 (130-400) K/uL MPV 8.9 (7.4-10.4) fL Immature Gran % (Auto) 0.4 % Neut % (Auto) 61.8 % Lymph % (Auto) 27.7 % [place] % (Auto) 7.7 % Eos % (Auto) 2.2 % Baso % (Auto) 0.2 % Neut # (Auto) 7.82 H (1.4-6.5) K/uL Lymph # (Auto) 3.51 H (1.2-3.4) K/uL [place] # (Auto) 0.98 H (0.11-0.59) K/uL Eos # (Auto) 0.28 (0-0.5) K/uL Baso # (Auto) 0.02 (0-0.2) K/uL Immature Gran # (Auto) 0.05 H (0.00-0.02) K/uL PT 10.1 (9.0-12.0) Seconds INR 1.0 (0.9-1.1) APTT 25.3 (21.0-31.0) Seconds PTT Ratio 1.0 Sodium 138 (136-145) mmol/L Potassium 3.4 L (3.5-5.1) mmol/L Chloride 104 (98-107) mmol/L Carbon Dioxide 25 (21-32) mmol/L Anion Gap 9.0 (3-11) BUN 11 (7-18) mg/dl Creatinine 0.48 L (0.6-1.2) mg/dl Est Cr Clr Drug Dosing 175.2 ml/min Est GFR ( Amer) 128.9 ml/min Est GFR (Non-Af Amer) 111.2 ml/min BUN/Creatinine Ratio 23.3 H (10-20) Glucose 116 H (70-99) mg/dl Calcium 9.0 (8.5-10.1) mg/dl Magnesium 2.1 (1.8-2.4) mg/dl Total Bilirubin 0.6 (0.2-1) mg/dl AST 51 H (15-37) U/L ALT 91 H (12-78) U/L Alkaline Phosphatase 91 (45-117) U/L Troponin I < 0.015 (0-0.045) ng/ml NT-Pro-B Natriuret Pep 142 (0-900) pg/ml Total Protein 7.7 (6.4-8.2) gm/dl Albumin 3.6 (3.4-5.0) gm/dl Globulin 4.1 H (2.5-4.0) gm/dl Albumin/Globulin Ratio 0.9 (0.9-2) COVID-19 Eval Order SARS-CoV-2 (PCR) (Negative) 07/22/20 07/22/20 Range/Units 03:44 03:44 WBC (4.8-10.8) K/uL RBC (4.2-5.4) M/uL Hgb (12.0-16.0) g/dL Hct (37-47) % MCV (80-100) fL MCH (25-34) pg MCHC (32-36) g/dL RDW Std Deviation (36.4-46.3) fL RDW Coeff of Deepak (11.5-14.5) % Plt Count (130-400) K/uL MPV (7.4-10.4) fL Immature Gran % (Auto) % Neut % (Auto) % Lymph % (Auto) % [place] % (Auto) % Eos % (Auto) % Baso % (Auto) % Neut # (Auto) (1.4-6.5) K/uL Lymph # (Auto) (1.2-3.4) K/uL [place] # (Auto) (0.11-0.59) K/uL Eos # (Auto) (0-0.5) K/uL Baso # (Auto) (0-0.2) K/uL Immature Gran # (Auto) (0.00-0.02) K/uL PT (9.0-12.0) Seconds INR (0.9-1.1) APTT (21.0-31.0) Seconds PTT Ratio Sodium (136-145) mmol/L Potassium (3.5-5.1) mmol/L Chloride (98-107) mmol/L Carbon Dioxide (21-32) mmol/L Anion Gap (3-11) BUN (7-18) mg/dl Creatinine (0.6-1.2) mg/dl Est Cr Clr Drug Dosing ml/min Est GFR ( Amer) ml/min Est GFR (Non-Af Amer) ml/min BUN/Creatinine Ratio (10-20) Glucose (70-99) mg/dl Calcium (8.5-10.1) mg/dl Magnesium (1.8-2.4) mg/dl Total Bilirubin (0.2-1) mg/dl AST (15-37) U/L ALT (12-78) U/L Alkaline Phosphatase (45-117) U/L Troponin I (0-0.045) ng/ml NT-Pro-B Natriuret Pep (0-900) pg/ml Total Protein (6.4-8.2) gm/dl Albumin (3.4-5.0) gm/dl Globulin (2.5-4.0) gm/dl Albumin/Globulin Ratio (0.9-2) COVID-19 Eval Order Covid19 at [facility] SARS-CoV-2 (PCR) NEGATIVE (Negative) Administered Medications Discontinued Medications Aspirin (Aspirin Chew 324 Mg) 324 mg PO NOW STA Stop: 07/22/20 03:36 Last Admin: 07/22/20 03:58 Dose: 324 mg Documented by: [id number] Aspirin (Aspirin 81 Mg Ectab) 81 mg PO [facility] Stop: 08/21/20 08:59 Last Admin: 07/22/20 09:13 Dose: 81 mg Documented by: [id number] Atorvastatin Calcium (Atorvastatin 40 Mg Tab) 40 mg PO QAM [facility] Stop: 08/21/20 08:59 Last Admin: 07/22/20 09:13 Dose: 40 mg Documented by: [id number] Clopidogrel Bisulfate (Clopidogrel Bisulfate 75 Mg Tab) 75 mg PO QAM [facility] Stop: 08/21/20 08:59 Last Admin: 07/22/20 09:13 Dose: 75 mg Documented by: [id number] Diphenhydramine HCl (Diphenhydramine 50 Mg/Ml Vial) 25 mg IV NOW STA Stop: 07/22/20 00:44 Last Admin: 07/22/20 02:19 Dose: 25 mg Documented by: [id number] Doxycycline Hyclate (Doxycycline Hyclate 50 Mg Cap) 50 mg PO DAILY [facility] Stop: 08/21/20 08:59 Last Admin: 07/22/20 09:16 Dose: 50 mg Documented by: [id number] Droperidol (Droperidol 5 Mg/2 Ml Vial) 0.625 mg IV ONE STA Stop: 07/22/20 00:44 Last Admin: 07/22/20 02:24 Dose: Not Given Documented by: [id number] Gabapentin (Gabapentin 300 Mg Cap) 300 mg PO [facility] Stop: 08/21/20 08:59 Last Admin: 07/22/20 09:13 Dose: 300 mg Documented by: [id number] Gabapentin (Gabapentin 100 Mg Cap) 100 mg PO DAILY [facility] Stop: 08/21/20 08:59 Last Admin: 07/22/20 09:13 Dose: 100 mg Documented by: [id number] Acetaminophen (Ofirmev) 1,000 mg in 100 mls @ 400 mls/hr IV NOW STA Stop: 07/22/20 00:57 Last Infusion: 07/22/20 02:23 Dose: 0 mls/hr Documented by: [id number] Admin: 07/22/20 02:00 Dose: 400 mls/hr Documented by: [id number] Magnesium Sulfate/Dextrose (Magnesium Sulfate / D5w) 1 gm in 100 mls @ 100 mls/hr IV NOW STA Stop: 07/22/20 01:44 Last Infusion: 07/22/20 03:50 Dose: 0 mls/hr Documented by: [id number] Admin: 07/22/20 02:20 Dose: 100 mls/hr Documented by: [id number] Sodium Chloride (Nss 1000ml) 1,000 mls @ 999 mls/hr IV .Q1H1M ONE Stop: 07/22/20 01:43 Last Infusion: 07/22/20 03:50 Dose: 0 mls/hr Documented by: [id number] Admin: 07/22/20 02:00 Dose: 999 mls/hr Documented by: [id number] Insulin Aspart (Insulin Aspart 100 Units/Ml 3 Ml Pen) 0 units SC ACHS GUERDA Stop: 08/21/20 07:29 Last Admin: 07/22/20 11:58 Dose: Not Given Documented by: [id number] Admin: 07/22/20 09:14 Dose: Not Given Documented by: [id number] Ioversol (Optiray 350 500ml) 125 ml IV ONCE ONE Stop: 07/22/20 05:27 Last Admin: 07/22/20 05:27 Dose: 116 ml Documented by: [id number] Potassium Chloride (Potassium Chloride Crtab 20 Meq Tabcr) 40 meq PO NOW STA Stop: 07/22/20 06:57 Last Admin: 07/22/20 09:23 Dose: Not Given Documented by: [id number] Potassium Chloride (Potassium Chloride 10 Meq Tabcr) Confirm Administered Dose 40 meq PO .STK-MED ONE Stop: 07/22/20 09:22 Last Admin: 07/22/20 09:23 Dose: 40 meq Documented by: [id number] Ropinirole HCl (Ropinirole Hcl 1 Mg Tablet) 4 mg PO HS [facility]ERDA Stop: 08/21/20 05:44 Last Admin: 07/22/20 05:53 Dose: 4 mg Documented by: [id number] Imaging Data Attestation: I personally reviewed and interpreted this imaging study as follows: Radiologist's Impression: Brain MRI 07/22/20 00:43 Brain MRI WITHOUT CONTRAST HISTORY: Pt c/o Rt sided numbness TECHNIQUE: Multiplanar multisequence MRI of the brain was performed without the use of contrast. COMPARISON STUDY: Brain MRI 12/06/2011. Head CT 07/16/2016. FINDINGS: There is no mass, hematoma, midline shift, or acute infarct. The paranasal sinuses are clear. The mastoid air cells are clear. The ventricles and sulci demonstrate mild age-related involutional changes. Scattered foci of T2 hyperintensity seen within the periventricular and subcortical white matter are nonspecific but suggestive of mild microvascular ischemic changes. The major vascular flow voids at the skull base are well-maintained. 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 IMPRESSION: No acute intracranial abnormality. Scattered foci of T2 hyperintensity seen within the periventricular and subcortical white matter are nonspecific but favor microvascular ischemic change. ACT 112: Negative or not required by law. Electronically signed by: Da Yao M.D. 07/22/2020 7:43 AM Chest X-Ray 07/22/20 01:14 XR chest 1V portable HISTORY: Shortness of breath. COMPARISON: 05/12/2019. FINDINGS: No pneumothorax. No pleural effusions. The heart remains mildly enlarged. No evidence for pulmonary edema. Hazy appearance to the lung bases is likely technical may be due to the overlapping soft tissue. Otherwise, no focal lung consolidations to suggest pneumonia. IMPRESSION: No significant change compared to the prior study. No acute process. ACT 112: Negative or not required by law. Electronically signed by: Da Yao M.D. 07/22/2020 8:09 AM Head CTA 07/22/20 03:35 HEAD CTA HISTORY: Facial numbness. Stroke Like Symptoms TECHNIQUE: Multiaxial CT images of the head were performed both before and after the intravenous administration of contrast to evaluate the major cerebral vessels. Maximum intensity projection images were also obtained. A dose lowering technique was utilized adhering to the principles of ALARA. COMPARISON: Head CT 07/16/2016. FINDINGS: There is no mass, hematoma, midline shift, or acute infarct. Vi sualized intracranial internal carotid arteries, distal vertebral arteries, and basilar artery are widely patent. 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 The major dural venous sinuses are patent. IMPRESSION: No significant stenosis, occlusion, or aneurysm within the [place]. ACT 112: Negative or not required by law. Electronically signed by: Da Yao M.D. 07/22/2020 7:36 AM Neck CTA 07/22/20 03:35 CT ANGIOGRAPHY OF THE NECK WITH CONTRAST CLINICAL HISTORY: Stroke Like Symptoms COMPARISON STUDY: No previous studies for comparison. Technique: CT angiography of the carotid and vertebral arteries was obtained using Optiray and 3D reconstruction on an independent workstation. NASCET criteria was utilized. Automated exposure control was utilized for the study. A dose lowering technique was utilized adhering to the principles of ALARA. Findings: Lung apices are unremarkable. There is no cervical lymphadenopathy. Subcentimeter left lobe thyroid nodule is noted. Epiglottis is normal. There is no acute cervical spine fracture. This exam is mildly compromised by artifact. The bilateral common carotid, cervical internal carotid and vertebral arteries are patent. There is no stenosis within these vessels. There is no aneurysm within the neck. No intraluminal thrombus is identified. IMPRESSION: Unremarkable CTA of the neck. No dissection or stenosis. ACT 112: Negative or not required by law. Electronically signed by: Bob Carr M.D. 07/22/2020 7:36 AM Venous Doppler Study 07/22/20 03:35 BILATERAL LOWER EXTREMITY VENOUS DOPPLER CLINICAL HISTORY: Lower extremity swelling and pain. COMPARISON STUDY: No previous studies for comparison. TECHNIQUE: Sonography of the deep venous system of the bilateral lower extremities was performed. Compression and augmentation were evaluated. FINDINGS: The bilateral common femoral, superficial femoral and popliteal veins were compressible. Augmentation was normal. Flow was shown within the deep calf vessels. IMPRESSION: No evidence of deep venous thrombus within the bilateral lower extremities. ACT 112: Negative or not required by law. Electronically signed by: Bob Carr M.D. 07/22/2020 6:42 AM Discharge Plan Visit Data Chief Complaint: Neuro Symptoms/Deficit Stated Complaint: NUMBNESS - CHEST/FACE/LIPS ED Provider: Justyn Hou Discharge Problem: Dysesthesia of face Patient Disposition: Admitted As Inpatient Discharge Instructions Interventions: ED Discharge Assessment Last Done: 07/22/20 06:00
[2020-07-22 01:25] LABS: Basophils # (auto) 0.02 K/uL (0-0.2); Basophils % (auto) 0.2 %; Eosinophils # (auto) 0.28 K/uL (0-0.5); Eosinophils % (auto) 2.2 %; Hematocrit (blood only) 40.4 % (37-47); Hemoglobin 12.8 g/dL (12.0-16.0); Immature Granulocytes # (auto) 0.05 K/uL (0.00-0.02); Immature Granulocytes % (auto) 0.4 %; Lymphocytes # (auto) 3.51 K/uL (1.2-3.4); Lymphocytes % (auto) 27.7 %; Mean Corpuscular Hgb Conc 31.7 g/dL (32-36); Mean Corpuscular Volume 78.9 fL (80-100); Mean Platelet Volume 8.9 fL (7.4-10.4); Monocytes # (auto) 0.98 K/uL (0.11-0.59); Monocytes % (auto) 7.7 %; Neutrophils # (auto) 7.82 K/uL (1.4-6.5); Neutrophils % (auto) 61.8 %; Platelet Count 296 K/uL (130-400); RDW Coefficient of Variation 15.6 % (11.5-14.5); RDW Standard Deviation 44.9 fL (36.4-46.3); Red Blood Count 5.12 M/uL (4.2-5.4); White Blood Count 12.66 K/uL (4.8-10.8)
[2020-07-22 01:38] LABS: Partial Thromboplastin Time 25.3 Seconds (21.0-31.0); Prothrombin Time 10.1 Seconds (9.0-12.0)
[2020-07-22 01:45] LABS: Alanine Aminotransferase 91 U/L (12-78); Albumin Level 3.6 gm/dl (3.4-5.0); Aspartate Aminotransferase 51 U/L (15-37); BUN Creatinine Ratio 23.3 (10-20); Blood Urea Nitrogen 11 mg/dl (7-18); Carbon Dioxide 25 mmol/L (21-32); Chloride 104 mmol/L (98-107); Creatinine Clr Calc Pharmacy 175.2 ml/min; Est GFR (African American) 128.9 ml/min; Est GFR (Non-African American) 111.2 ml/min; Glucose 116 mg/dl (70-99); Magnesium 2.1 mg/dl (1.8-2.4); Potassium 3.4 mmol/L (3.5-5.1); Sodium 138 mmol/L (136-145)
[2020-07-22 01:50] LABS: Albumin Globulin Ratio 0.9 (0.9-2); Alkaline Phosphatase 91 U/L (45-117); Bilirubin,Total 0.6 mg/dl (0.2-1); Globulin 4.1 gm/dl (2.5-4.0); NT Pro B Type Natriuretic Pept 142 pg/ml (0-900); Total Protein 7.7 gm/dl (6.4-8.2); Troponin I < 0.015 ng/ml (0-0.045)
[2020-07-22] MEDS ORDERED: ASPIRIN CHEW 324 MG PO STA (03:35)
[2020-07-22] MEDS ORDERED: OPTIRAY 350 500ml IV ONE (05:26)
--- NOTE | 2020-07-22 05:42 | History & Physical Report ---
Date of Service July 22, 2020 Assessment & Plan (1) CVA (cerebral vascular accident): 54yo right-handed female with history of HTN, DM, Obesity, strong family history of premature vascular disease presenting with right facial numbness, numbness and weakness of RUE. MRI with focal defect at anterior corpus callosum, likely infarct as well as chronic small vessel ischemic changes. -Admit to PCU -Neuro checks and NIHSS per protocol -Check CTA head and neck -Check 2D echo -Neuro consultation appreciated -Check lipids and AIC -Initiate Atorvastatin 40 -ASA and Plavix for now -Tylenol as needed for headache -PT/OT evaluation Present on Admission?: Yes (2) Type 2 diabetes mellitus: -Check Hgb AIC -ISS - goal blood sugar 100 - 140 -Continue Neurontin Present on Admission?: Yes (3) Hypertension: Blood pressure acceptable -Hold antihypertensives to allow for permissive hypertension -Monitor Present on Admission?: Yes (4) Restless leg syndrome: Chronic. Symptoms severe tonight -Ropinirole HS [place] - Continue daily Doxycycline F/E/N - [place]. KCl 40 mEq, CC/AHA diet as tolerated Ppx - SCDs Code - Full per discussion with patient DIspo - Admit to PCU Present on Admission?: Yes History of Present Illness Chief Complaint: CVA Primary Care Provider: Korina Carr MD 54yo right-handed female with history of HTN, DM, strong family history of premature cardiovascular disease (several siblings or having major CV events in their 40's and 50's) presenting with new CVA. Patient reports not feeling herself today. She was more tired than usual. Also had some edema of her feet. She took a nap on the recliner chair and woke around 20:30 with complaint of numbness of the right face, anterior chest and arm as well as some diminished strength in the right arm. She called her sister around 23:00 who instructed her to come to the ER. Symptoms are still present. Patient also with dull headache. No additional complaints Allergies Allergy/AdvReac Type Severity Reaction Status Date / Time metronidazole AdvReac Intermediate headache Verified 07/22/20 01:27 erythromycin base AdvReac Mild UPSET Verified 07/22/20 01:27 STOMACH lisinopril AdvReac Mild cough Verified 07/22/20 01:27 Home Medications Medication Instructions Recorded Confirmed Type pimecrolimus 1 % topical cream 1 applic TOPICAL BID #30 g 10/13/19 07/22/20 Rx valacyclovir 500 mg tablet 500 mg PO BID PRN #36 tab 01/14/20 07/22/20 Rx cyclobenzaprine 5 mg tablet 5 mg PO HS PRN #30 tab 04/06/20 07/22/20 Rx furosemide 20 mg tablet 20 mg PO DAILY #90 tab 04/06/20 07/22/20 Rx doxycycline monohydrate 40 mg 40 mg PO DAILY #90 ea 04/15/20 07/22/20 Rx capsule,immediate - delay release gabapentin 100 mg capsule 100 mg PO DAILY #90 cap 04/19/20 07/22/20 Rx metformin 1,000 mg tablet 1,000 mg PO BID #180 tab 04/19/20 07/22/20 Rx ropinirole 2 mg tablet 4 mg PO QPM #180 tab 04/19/20 07/22/20 Rx losartan 50 mg tablet 50 mg PO DAILY #90 tab 05/21/20 07/22/20 Rx cyanocobalamin (vitamin B-12) 1,000 mcg PO DAILY #30 cap 05/26/20 07/22/20 Rx 1,000 mcg capsule semaglutide 0.25 mg SUBCUT WEEKLY #1.5 ml 05/26/20 07/22/20 Rx cholecalciferol (vitamin D3) 250 mcg PO DAILY 07/22/20 07/22/20 History [Vitamin D3] gabapentin 300 mg PO AMHS 07/22/20 07/22/20 History Past Med/Surg History Medical History Acid reflux Alpha thalassemia Asthma Cervical disc disease Edema H. pylori infection Hypertension Obesity Restless leg syndrome Type 2 diabetes mellitus Surgical History History of arthroscopy of right shoulder History of cholecystectomy History of colonoscopy History of dilatation and curettage History of esophagogastroduodenoscopy (EGD) History of gynecologic surgery biopsy of inside of uterus/cervix "took out endometrial lining and 2 masses"--benign History of incision and drainage skin abscess History of tooth extraction History of total bilateral knee replacement (TKR) History of wisdom tooth extraction S/P unilateral salpingo-oophorectomy bilateral salpingectomy and left oophorectomy- mucinous cystadenoma S/P unilateral salpingo-oophorectomy right- dermoid Family History Sister , 58 Diabetes Uterine cancer Grandmother (Maternal) Diabetes Father Colorectal cancer Family/Other Cardiac disorder Hypertension Cancer Breast cancer Prostate cancer Myocardial infarction Aunt Breast cancer Mother , age 87 Cervical cancer treated with radiation only 50 years ago? 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 [employer] Feels Safe at Home: Yes Safety Concerns: Feels Safe At This Time Dental Care, Regularly: Yes Physical Activity Frequency: 1-2 Times per Week Assistive Devices: None Review of Systems Review of Systems: All systems reviewed & are unremarkable except as noted in HPI & below Physical Exam Physical Exam: General: patient resting comfortably, NAD, non-toxic in appear ance, AA&O x 4 Skin: warm, dry, intact, no rashes or lesions HEENT: NC/AT, PERRL, EOMI, anicteric sclera, conjunctiva without injection, external ear normal to inspection and nontender, nares patent, moist mucus membranes, dentition intact, no oropharyngeal lesions, neck supple, trachea midline, no LAD, no thyromegaly, no JVD Heart: +S1/S2, regular, no m/r/g Lungs: equal air entry bilaterally, no rales/rhonchi/wheezes Abd: +BS, soft, NT/ND, no masses/organomegaly/ascites Ext: warm, 2+ pulses in UE/LE bilaterally, no clubbing/cyanosis or edema Neuro: AA&O x 4, speech clear and appropriate, no facial droop, sensation to light touch diminished in right face V1-V3 as well as right anterior chest wall and RUE. Sensation to light touch intact in LE. CN intact. MS 4/5 in RUE, 5/5 elsewhere. Results & Data Results & Data ([facility]) Vital Signs (Past 12 Hours) Vital Signs Temp Pulse Resp BP Pulse Ox 07/22/20 05:03 80 24 144/83 H 96 07/22/20 04:00 74 23 138/69 97 07/22/20 03:30 80 17 125/66 96 07/22/20 03:01 77 16 112/64 96 07/22/20 03:00 75 24 94 07/22/20 02:15 77 22 94 07/22/20 02:03 79 24 152/95 H 94 07/22/20 00:26 36 C L 90 20 169/85 H 98 PG Care Time/CCT Total # of Minutes Spent Total Time Spent with Patient: Total time spent is greater than 50% in coordination of care (as documented) at patient's floor/unit and/or counseling patient: Coding Level of Care Code 89054 Initial Inpt Care Lvl 3 Diagnoses CVA (cerebral vascular accident) I63.9 CVA mechanism: unspecified Type 2 diabetes mellitus E11.9; Z79.4 Diabetes mellitus alf insulin use: 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 Diabetes mellitus complication status: without complication Hypertension I10 Hypertension type: essential hypertension Restless leg syndrome G25.81 (1) Type 2 diabetes mellitus 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
[2020-07-22] MEDS ORDERED: rOPINIRole HCL 1 MG TABLET PO SCH ×2 (05:45→21:00)
[2020-07-22] MEDS ORDERED: ONDANSETRON INJ 2 MG/ML 2 ML VIAL IV PRN (05:59)
[2020-07-22] MEDS ORDERED: ACETAMINOPHEN 325 MG TAB PO PRN (05:59)
--- NOTE | 2020-07-22 06:43 | Ultrasound Report ---
BILATERAL LOWER EXTREMITY VENOUS DOPPLER CLINICAL HISTORY: Lower extremity swelling and pain. COMPARISON STUDY: No previous studies for comparison. TECHNIQUE: Sonography of the deep venous system of the bilateral lower extremities was performed. Co mpression and augmentation were evaluated. FINDINGS: The bilateral common femoral, superficial femoral and popliteal veins were compressible. A ugmentation was normal. Flow was shown within the deep calf vessels. IMPRESSION: No evidence of deep venous thrombus within the bilateral lower extremities. ACT 112: Negative or not required by law. Electronically signed by: Bob Carr M.D. 07/22/2020 6:42 AM
[2020-07-22] MEDS ORDERED: GLUCOSE 40% GEL 15 GM TUBE PO PRN (06:53)
[2020-07-22] MEDS ORDERED: GLUCAGON FOR INJ 1 MG VIAL SQ PRN (06:53)
[2020-07-22] MEDS ORDERED: DEXTROSE 50% 50 ML SYRINGE IV PRN (06:53)
[2020-07-22] MEDS ORDERED: CARBOHYDRATES FOR HYPOGLYCEMIA PO PRN (06:53)
[2020-07-22] MEDS ORDERED: GLUCOSE 10 TABS/TUBE PO PRN (06:53)
[2020-07-22] MEDS ORDERED: POTASSIUM CHLORIDE CRTAB 20 MEQ TABCR PO STA (06:56)
--- NOTE | 2020-07-22 07:37 | CT Scan Report ---
HEAD CTA HISTORY: Facial numbness. Stroke Like Symptoms TECHNIQUE: Multiaxial CT images of the head were performed both before and after the intravenous admi nistration of contrast to evaluate the major cerebral vessels. Maximum intensity projection images we re also obtained. A dose lowering technique was utilized adhering to the principles of ALARA. COMPARISON: Head CT 07/16/2016. FINDINGS: There is no mass, hematoma, midline shift, or acute infarct. Visualized intracranial corporate legal intern al carotid arteries, distal vertebral arteries, and basilar artery are widely patent. There is no sig nificant stenosis, occlusion, or aneurysm seen within the bilateral ACAs, MCAs, or medical educator. The major du ral venous sinuses are patent. IMPRESSION: No significant stenosis, occlusion, or aneurysm within the [place]. ACT 112: Negative or not required by law. Electronically signed by: Da Yao M.D. 07/22/2020 7:36 AM
--- NOTE | 2020-07-22 07:37 | CT Scan Report ---
CT ANGIOGRAPHY OF THE NECK WITH CONTRAST CLINICAL HISTORY: Stroke Like Symptoms COMPARISON STUDY: No previous studies for comparison. Technique: CT angiography of the carotid and vertebral arteries was obtained using [employer] and 3D rec onstruction on an independent workstation. NASCET criteria was utilized. Automated exposure control was utilized for the study. A dose lowering technique was utilized adhering to the principles of ALA RA. Findings: Lung apices are unremarkable. There is no cervical lymphadenopathy. Subcentimeter left lobe thyroid nodule is noted. Epiglottis is normal. There is no acute cervical spine fracture. This exam is mildly compromised by artifact. The bilateral common carotid, cervical internal carotid and verteb ral arteries are patent. There is no stenosis within these vessels. There is no aneurysm within the n yony. No intraluminal thrombus is identified. IMPRESSION: Unremarkable CTA of the neck. No dissection or stenosis. ACT 112: Negative or not required by law. Electronically signed by: Bob Carr M.D. 07/22/2020 7:36 AM
--- NOTE | 2020-07-22 07:44 | Magnetic Resonance Report ---
Brain MRI WITHOUT CONTRAST HISTORY: Pt c/o Rt sided numbness TECHNIQUE: Multiplanar multisequence MRI of the brain was performed without the use of contrast. COMPARISON STUDY: Brain MRI 12/06/2011. Head CT 07/16/2016. FINDINGS: There is no mass, hematoma, midline shift, or acute infarct. The paranasal sinuses are tuyet r. The mastoid air cells are clear. The ventricles and sulci demonstrate mild age-related involutiona l changes. Scattered foci of T2 hyperintensity seen within the periventricular and subcortical white matter are nonspecific but suggestive of mild microvascular ischemic changes. The major vascular flow voids at the skull base are well-maintained. 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 IMPRESSION: No acute intracranial abnormality. Scattered foci of T2 hyperintensity seen within the periventricula r and subcortical white matter are nonspecific but favor microvascular ischemic change. ACT 112: Negative or not required by law. Electronically signed by: Da Yao M.D. 07/22/2020 7:43 AM
--- NOTE | 2020-07-22 08:10 | XRay Report ---
XR chest 1V portable HISTORY: Shortness of breath. COMPARISON: 05/12/2019. FINDINGS: No pneumothorax. No pleural effusions. The heart remains mildly enlarged. No evidence for p ulmonary edema. Hazy appearance to the lung bases is likely technical may be due to the overlapping s oft tissue. Otherwise, no focal lung consolidations to suggest pneumonia. IMPRESSION: No significant change compared to the prior study. No acute process. ACT 112: Negative or not required by law. Electronically signed by: Da Yao M.D. 07/22/2020 8:09 AM
[2020-07-22] MEDS ORDERED: GABAPENTIN 100 MG CAP PO SCH (09:00)
[2020-07-22] MEDS ORDERED: DOXYCYCLINE HYCLATE 50 MG CAP PO SCH (09:00)
[2020-07-22] MEDS ORDERED: ATORVASTATIN 40 MG TAB PO SCH (09:00)
[2020-07-22] MEDS ORDERED: CLOPIDOGREL BISULFATE 75 MG TAB PO SCH (09:00)
[2020-07-22] MEDS ORDERED: DOXYCYCLINE MONOHYDRATE 40 MG PO SCH (09:00)
[2020-07-22] MEDS ORDERED: GABAPENTIN 300 MG CAP PO SCH (09:00)
[2020-07-22] MEDS ORDERED: ASPIRIN 81 MG ECTAB PO SCH (09:00)
[2020-07-22] MEDS: INSULIN ASPART 100 UNITS/ML 3 ML PEN SC SCH ×2 (09:14→11:58)
[2020-07-22] MEDS ORDERED: POTASSIUM CHLORIDE 10 MEQ TABCR PO ONE (09:21)
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
--- NOTE | 2020-07-22 22:39 | XCELERA ---
[id number]
--- NOTE | 2020-07-23 06:41 | Electrocardiogram Report ---
Test Reason : Blood Pressure : / mmHG Vent. Rate : 086 BPM Atrial Rate : 086 BPM P-R Int : 200 ms QRS Dur : 096 ms QT Int : 402 ms P-R-T Axes : 026 003 056 degrees QTc Int : 481 ms Normal sinus rhythm Prolonged QT Abnormal ECG When compared with ECG of 21-APR-2019 14:08, No significant change was found Confirmed by Bruno Arechiga ([id number]) on 07/23/2020 6:40:50 AM Referred By: REFERRED SELF Confirmed By:Bruno Arechiga
--- NOTE | 2020-07-24 12:44 | Discharge Summary ---
Date of Service July 22, 2020 Admission HPI Per Admitting Provider 54yo right-handed female with history of HTN, DM, strong family history of premature cardiovascular disease (several siblings or having major CV events in their 40's and 50's) presenting with new CVA. Patient reports not feeling herself today. She was more tired than usual. Also had some edema of her feet. She took a nap on the recliner chair and woke around 20:30 with complaint of numbness of the right face, anterior chest and arm as well as some diminished strength in the right arm. She called her sister around 23:00 who instructed her to come to the ER. Symptoms are still present. Patient also with dull headache. No additional complaints Principal Diagnosis complex migraine, Discharge Exam General: patient resting comfortably, NAD, non-toxic in appearance, AA&O x 4 Skin: warm, dry, intact, no rashes or lesions HEENT: NC/AT, PERRL, EOMI, anicteric sclera, conjunctiva without injection, external ear normal to inspection and nontender, nares patent, moist mucus membranes, dentition intact, no oropharyngeal lesions, neck supple, trachea midline, no LAD, no thyromegaly, no JVD Heart: +S1/S2, regular, no m/r/g Lungs: equal air entry bilaterally, no rales/rhonchi/wheezes Abd: +BS, soft, NT/ND, no masses/organomegaly/ascites Ext: warm, 2+ pulses in UE/LE bilaterally, no clubbing/cyanosis or edema Neuro: AA&O x 4, speech clear and appropriate Discharge Data Allergies Allergy/AdvReac Type Severity Reaction Status Date / Time metronidazole AdvReac Intermediate headache Verified 07/23/20 16:04 erythromycin base AdvReac Mild UPSET Verified 07/23/20 16:04 STOMACH lisinopril AdvReac Mild cough Verified 07/23/20 16:04 Consultations 07/22/20 03:36 ED Decision to Admit Stat 07/22/20 05:59 Consult Neurology Routine Ordered Studies 07/22/20 00:43 MR brain wo con Stat 07/22/20 03:35 CT angio head w con Urgent CT angio neck with con Urgent US venous doppler LE BI Urgent Hospital Course (1) CVA (cerebral vascular accident): 54yo right-handed female with history of HTN, DM, Obesity, strong family history of premature vascular disease presenting with right facial numbness, numbness and weakness of RUE. MRI with focal defect at anterior corpus callosum, likely infarct as well as chronic small vessel ischemic changes. -Admit to PCU -Neuro checks and NIHSS per protocol -Check CTA head and neck -Check 2D echo -Neuro consultation appreciated -Check lipids and AIC -Initiate Atorvastatin 40 -ASA and Plavix for now -Tylenol as needed for headache -PT/OT evaluation On discharge: Appreciate input from NEURO. his patient had the acute onset of face and upper chest /neck dysesthesias last evening followed by a headache consistent with migraine. Interestingly, she has no real history of migraine headaches in the past. MRI the brain revealed no new stroke and she has some mild old nonspecific white matter ischemic changes consistent with small vessel ischemic disease. This is likely due to her history of hypertension and diabetes as well as her age. CT angiography of the head and neck were unremarkable Overall there is no acute stroke. I favor a complicated migraine in lieu of the headache. A TIA resulting in some dysesthesias should not produce head pain. Recommendations: 1. 81 milligram aspirin tablet daily because of the chronic cerebral ischemia. 2. Even though I suspect complicated migraine, an echocardiogram could be done to evaluate her heart- this could be done as an outpatient. 3. fasting lipid profile and hemoglobin A1c. 4. increase activity as able 5. Control blood pressure as you are doing, aiming for a mean arterial pressure of 95-100. Patient is agreeable for discharge, (2) Type 2 diabetes mellitus: -Check Hgb AIC -ISS - goal blood sugar 100 - 140 -Continue Neurontin (3) Hypertension: Blood pressure acceptable -Hold antihypertensives to allow for permissive hypertension -Monitor (4) Restless leg syndrome: Chronic. Symptoms severe tonight -Ropinirole HS Rosacia - Continue daily Doxycycline Total Time Total Time Spent Total Time Spent (In Minutes): 32 Total Time Includes: Examination of the Patient, Discharge Planning and Medication Reconciliation Discharge Plan Discharge Items Patient Disposition: Home - Self-Care Reason For Visit: CVA Discharge Diagnosis: complex migraine Activity: Resume your previous activity Non-emergency contact: Primary Care Provider Call non-emergency contact if: you have any medication questions Follow-up/Referrals: Korina Carr MD [Primary Care Provider] - Diet: Carb Consistent or DM2 and Heart Healthy Addtl Attending Provider Instructions: You have been diagnosed with a complex migraine. Neurology recommends: 1. Continue 81 milligram aspirin tablet daily 2. Even though I suspect complicated migraine, an echocardiogram could be done as an outpatient. 3. will defer to PCP: fasting lipid profile and hemoglobin A1c. 4. increase activity as able. 5. followup with Neurology Dr. Quiles if needed in 1-2 month. Pending Studies at Discharge: No Stand-Alone Forms: My [facility], Work/School Release, Smoking Cessation Medications and DC Order Prescriptions: Continued pimecrolimus 1 % cream 1 applic topical BID Qty: 30 RF: 3 valacyclovir 500 mg tablet 500 mg PO BID PRN (Reason: herpes outbreak) Qty: 36 RF: 5 cyclobenzaprine 5 mg tablet 5 mg PO HS PRN (Reason: muscle spasm) Qty: 30 RF: 2 furosemide 20 mg tablet 20 mg PO DAILY Qty: 90 RF: 3 ropinirole 2 mg tablet 4 mg PO QPM Qty: 180 RF: 1 metformin 1,000 mg tablet 1,000 mg PO BID Qty: 180 RF: 3 gabapentin 100 mg capsule 100 mg PO DAILY Qty: 90 RF: 3 losartan 50 mg tablet 50 mg PO DAILY Qty: 90 RF: 3 Ozempic 0.25 mg or 0.5 mg(2 mg/1.5 mL) pen injector 0.25 mg subcut WEEKLY Qty: 1.5 RF: 1 cyanocobalamin (vitamin B-12) 1,000 mcg capsule 1,000 mcg PO DAILY Qty: 30 RF: 0 doxycycline monohydrate 40 mg capsule,IR - delay rel,biphase 40 mg PO DAILY Qty: 90 RF: 1 cholecalciferol (vitamin D3) [Vitamin D3] 125 mcg (5,000 unit) Tablet 250 mcg PO DAILY RF: 0 gabapentin 300 mg capsule 300 mg PO AMHS RF: 0 No Action atorvastatin 40 mg tablet 40 mg PO DAILY RF: 0 aspirin 81 mg tablet,delayed release (DR/EC) 81 mg PO DAILY RF: 0 valacyclovir [Valtrex] 1 gram tablet 1,000 mg PO TID 7 Days Qty: 21 RF: 0 hydroxyzine HCl 25 mg tablet 25 mg PO Q8H PRN (Reason: anxiety ) Qty: 30 RF: 0 Discharge Orders: Discharge Order (Routine); Ordered 07/22/20 Ordered By: Sergio Tom Admission Data Admit Date/Time: 07/22/20 05:41 Attending Provider: Sergio Tom Admit Provider: Jaci Taylor Primary Care Provider: Korina Carr Other Providers: Jaci Taylor ; Jose De Jesus Quiles Other Interventions: Discharge Summary Assessment (RN) Last Done: 07/22/20 13:33 Coding Level of Care Code D/C Day Management >30 mins Diagnoses CVA (cerebral vascular accident) I63.9 CVA mechanism: unspecified Type 2 diabetes mellitus E11.9; Z79.4 Diabetes mellitus complication status: without complication Diabetes mellitus establishment guide insulin use: with establishment guide use Hypertension I10 Hypertension type: essential hypertension Restless leg syndrome G25.81 Time Spent (min) 32
== END 2020-07-22 14:24 | disposition home or self-care (01) | DRG 103 ==
LOC: ED 00:23 → EDINP 05:41 → SUATTDRO 05:41 → EDINP 06:00

== ENCOUNTER 2023-08-19 10:27 | Observation (INO) ==
[2023-08-19] MEDS ORDERED: PROCHLORPERAZINE 5 MG in SYRINGE 8 ML IV ONE (10:53)
--- NOTE | 2023-08-19 11:02 | Emergency Department Note ---
Impression & Plan Left sided numbness, Headache, Rash, Stroke-like symptoms ED Provider Note NAME: TERELL LEONARD AGE: 58 SEX: F : 1965 ARRIVES VIA: Walk-In INFORMANT: [Patient] ED PROVIDER(S): [Kiko Newby MD] CHIEF COMPLAINT: Dr. Referred HISTORY OF PRESENT ILLNESS: The patient is a 58-year-old female who states that yesterday, she noticed numbness to her left face and left arm. She had a headache. She also noticed a rash around the left breast. There were blisters with the rash. She applied some Neosporin to the area. She spoke to her doctor's office and was to report today to urgent care. At urgent care, the rash was thought likely secondary to yeast. She was told to report to the ER though as the numbness and tingling was a concern. The patient does believe that the numbness and tingling have worsened today. There has been no difficulty with balance, no one-sided weakness. No speech slur, no difficulty with her thinking. There has been no cough or cold, no fever. No urinary complaints. The patient has had migraines in the past although, she has never had any numbness with the migraines. PMHx/PSHx/Social Hx: See Below PHYSICAL EXAM: GENERAL: Patient is in no acute distress. HEENT: No acute trauma, normocephalic atraumatic, mucous membranes moist, no nasal congestion. NECK: No stridor, no adenopathy, no meningismus, trachea is midline. LUNGS: Clear to auscultation bilaterally, no wheeze, no rhonchi, breath sounds equal. HEART: 2/6 to 3/6 systolic murmur heard best at the right sternal border. Regular rate and rhythm. Chest: There is an erythematous patchy rash to the area around the underside of the left breast, no vesicles. A similar but less extensive rash is seen under the right breast. ABDOMEN: Soft, nontender, no peritonitis. EXTREMITIES: No cyanosis, full range of motion of all the joints without pain or difficulty. NEUROLOGIC: Oriented x 3, no acute motor or sensory deficits, no focal weakness. No speech slur or facial droop, no extremity drift, excellent historian. SKIN: No jaundice, no diaphoresis. DIFFERENTIAL DIAGNOSIS: Complex migraine, herpes zoster, intracranial bleeding, stroke, electrolyte imbalance, among others. EMERGENCY DEPARTMENT PROCEDURES: MEDICAL DECISION MAKING: There is no leukocytosis or concerning anemia. There is a normal platelet count. No coagulopathy. No renal failure or significant electrolyte abnormality. No concerning liver enzyme elevation. ECG shows a sinus rhythm, no obvious acute ischemia. Cardiac enzyme testing x 1 is not consistent with acute cardiac injury. Urinalysis results are pending. Brain CT showed no acute bleed or mass effect. CT angio of the head and neck were performed, there was no clot or stenosis. On exam, there were no focal neurologic findings. The patient did complain of left facial and left arm numbness. She had a mild headache. The patient certainly presented with symptoms worrisome for CVA. She was not a candidate for TNK though as her symptoms had started yesterday. Patient was given a 500 cc saline bolus. She was given IV Compazine, IV Benadryl and IV Tylenol. The patient does feel improved. Her headache is better, the numbness has improved with the medications provided. The patient is in need of further workup for the possibility of stroke. I do think hospitalization is warranted. The patient may in fact be suffering from a complex migraine, I discussed this possibility with her. I talked about this possibly with the admitting hospitalist. With regard to the rash, the etiology is unclear. The rash yesterday appeared possibly consistent with shingles although today, that is not the case. I doubt the rash and her neurologic complaints are related. I spoke with case management, the on-call hospitalist was consulted. Prior/Outside records/notes reviewed: Outpatient provider note from 08/18/2023 discussing the rash and the advised to report to urgent care today. ECG per my interpretation: Indication was possible stroke. The ECG shows a sinus rhythm with a first-degree AV block. The rate is 84. There is no acute ST elevation, no PVCs. The QTc is 501. Continuous Cardiac Monitoring per my interpretation: An order was placed for continuous cardiac monitoring. The monitor shows a rate of 87 with normal sinus rhythm. Imaging/x-ray results per my interpretation: Chronic Medical/Social conditions affecting care: Care/Management discussed with: Case management, the on-call hospitalist. Level of care consideration(s): After review of the information above and other included data: --I believe the patient requires escalation of care to admission Critical Care Note: I have personally spent 47 minutes of critical care time in the direct management of this patient. This includes bedside care, interpretation of diagnostic studies, and testing, discussion with consultants, patient, and family members, and other required patient management activities. This 47 minutes is in excess of all separately billable procedures. DISPOSITION: Admission Past Med/Surg History Problem List (Updated 08/19/23 @ 17:05 by Kiko Newby MD) Stroke-like symptoms (Acute) Rash (Acute) Headache (Acute) Left sided numbness (Acute) Migraine headache Organic periodic limb movement disorder (Chronic) Nocturnal hypoxemia (Chronic) Alpha thalassemia (Chronic) Sensory polyneuropathy (Chronic) Rosacea (Chronic) Rotator cuff arthropathy of left shoulder (Chronic) had injections, no surgery Hypertension (Chronic) Restless leg syndrome (Chronic) Asthma (Chronic) emergency inhaler Acid reflux (Chronic) Type 2 diabetes mellitus (Chronic) Cervical disc disease (Chronic) Fatty liver (Chronic) Metabolic syndrome (Chronic) Morbid obesity with BMI of 50.0-59.9, adult (Chronic) Chronic cerebral ischemia (Chronic) Severe obstructive sleep apnea (Chronic) BiPap Medical History History of colon polyps Complicated migraine (07/2020) Vitamin D deficiency Surgical History Hx of bilateral salpingectomy and left ooperectomy Hx of cardiac catheterization (~04/2019) [facility], due to chest pain, no stents, 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 History of esophagogastroduodenoscopy (EGD) History of incision and drainage skin abscess History of dilatation and curettage History of arthroscopy of right shoulder History of gynecologic surgery biopsy of inside of uterus/cervix "took out endometrial lining and 2 masses"--benign History of total bilateral knee replacement (TKR) History of cholecystectomy History of colonoscopy History of tooth extraction History of wisdom tooth extraction Family History Sister , 58 Diabetes Uterine cancer Grandmother (Maternal) Diabetes Father Colorectal cancer Family/Other Cardiac disorder Hypertension Cancer Breast cancer Prostate cancer Myocardial infarction Aunt Breast cancer Mother , age 87 Cervical cancer treated with radiation only 50 years ago? 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 [employer] Feels Safe at Home: Yes Childhood Exposure to Second-Hand Smoke: No Diet: regular caffeine: Yes Dental Care, Regularly: Yes Physical Activity Frequency: Does not Exercise Seatbelt Use: always Sunscreen Use: Yes Assistive Devices: CPAP Allergies Allergies Allergy/AdvReac Type Severity Reaction Status Date / Time metronidazole AdvReac Intermediate headache Verified 08/19/23 09:51 erythromycin base AdvReac Mild UPSET Verified 08/19/23 09:51 STOMACH lisinopril AdvReac Mild cough Verified 08/19/23 09:51 Home Meds Home Medications Medication Instructions Recorded Confirmed cholecalciferol (vitamin D3) 125 250 mcg PO QAM 07/22/20 08/19/23 mcg (5,000 unit) tablet (Vitamin D3) diphenhydramine HCl 50 mg capsule 50 mg PO HS 07/27/20 08/19/23 pimecrolimus 1 % topical cream 1 applic topical BID PRN allergies 08/11/20 08/19/23 vitamin B complex (B 1 tab PO QAM 01/24/23 08/19/23 Complex-Vitamin B12 tablet) atorvastatin 40 mg tablet 40 mg PO QPM 05/07/23 08/19/23 diltiazem HCl 120 mg capsule,24 120 mg PO QAM 05/07/23 08/19/23 hr,extended release furosemide 20 mg tablet 20 mg PO QAM edema 05/07/23 08/19/23 gabapentin 100 mg capsule 100 mg PO QPM 05/07/23 08/19/23 losartan 100 mg tablet 100 mg PO QAM 05/07/23 08/19/23 triamcinolone acetonide 0.1 % 1 applic topical BID PRN allergies 05/07/23 08/19/23 topical cream valacyclovir 500 mg tablet 500 mg PO QAM 05/07/23 08/19/23 Previous Rx's Medication Instructions Recorded gabapentin 300 mg capsule 600 mg (2 x 300 mg) PO HS #180 caps 01/24/23 metformin 1,000 mg tablet 1,000 mg PO BID #180 tabs 01/24/23 ropinirole 2 mg tablet 4 mg (2 x 2 mg) PO QPM #180 tabs 01/24/23 trazodone 50 mg tablet 50 mg PO HS PRN sleep #90 tabs 01/24/23 doxycycline monohydrate 40 mg See Rx Instructions .Route 06/07/23 capsule,immediate - delay release .COMPLEX #90 caps (Oracea) albuterol sulfate 90 mcg/actuation 2 puff inhalation QID #18 grams 06/25/23 aerosol inhaler (Ventolin HFA) meloxicam 15 mg tablet 15 mg PO DAILY PRN pain #30 tabs 07/11/23 tirzepatide 12.5 mg/0.5 mL 12.5 mg (0.5 mL) subcut Q7D 28 08/07/23 subcutaneous pen injector days #2 mL nystatin 100,000 unit/gram topical 1 applic topical TID #60 grams 08/19/23 powder Results & Data (ED) Vital Signs Vital Signs - 24 hr 08/19/23 10:36 08/19/23 11:18 08/19/23 12:24 Temperature 36.5 C Temperature Source Temporal Artery Scan Pulse Rate 87 80 Pulse Rate [Apical] 83 Respiratory Rate 18 21 Respiratory Effort / Characteristics Non-Labored Spontaneous Non-Labored Respiratory Depth Normal Normal Respiratory Pattern Regular Blood Pressure 153/84 H Blood Pressure [Left Arm] 162/84 H Blood Pressure Mean 107 Blood Pressure Mean [Left Arm] 110 Blood Pressure Position Sitting Pulse Oximetry 98 99 Oxygen Delivery Method Room Air Room Air Sepsis Recent Fever Within 48 Hours No Sepsis New/Unexplained Change in Mental Status N/A Sepsis Action Taken by Nursing No Action Required 08/19/23 12:51 08/19/23 14:21 Temperature Temperature Source Pulse Rate Pulse Rate [Apical] 79 74 Respiratory Rate 18 18 Respiratory Effort / Characteristics Non-Labored Non-Labored Respiratory Depth Normal Normal Respiratory Pattern Regular Regular Blood Pressure Blood Pressure [Left Arm] 154/77 H 144/75 H Blood Pressure Mean Blood Pressure Mean [Left Arm] 102 98 Blood Pressure Position Pulse Oximetry 100 100 Oxygen Delivery Method Room Air Room Air Sepsis Recent Fever Within 48 Hours Sepsis New/Unexplained Change in Mental Status Sepsis Action Taken by Retirement Medications Current Medication List: was personally reviewed by me Laboratory Data Attestation: I reviewed the patient's lab results. 08/19/23 11:14 08/19/23 11:14 Lab Results 08/19/23 Range/Units 11:14 WBC 10.69 (4.8-10.8) K/ul RBC 4.84 (4.20-5.40) M/uL Hgb 12.4 (12.0-16.0) g/dl Hct 40.9 (37.0-47.0) % MCV 84.5 (80.0-100.0) fL MCH 25.6 (25.0-34.0) pg MCHC 30.3 L (32.0-36.0) g/dL RDW Std Deviation 45.5 (36.4-46.3) fL RDW Coeff of Deepak 14.9 H (11.5-14.5) % Plt Count 313 (130-400) K/uL MPV 8.9 L (9.4-12.4) fL Immature Gran % (Auto) 0.7 % Neut % (Auto) 59.6 % Lymph % (Auto) 27.3 % [place] % (Auto) 9.8 % Eos % (Auto) 2.0 % Baso % (Auto) 0.6 % Neut # (Auto) 6.37 (1.40-6.50) K/uL Lymph # (Auto) 2.92 (1.20-3.40) K/uL [place] # (Auto) 1.05 H (0.11-0.59) K/uL Eos # (Auto) 0.21 (0.00-0.50) K/uL Baso # (Auto) 0.06 (0.00-0.20) K/uL Immature Gran # (Auto) 0.08 (0.01-0.20) K/uL PT 10.4 (9.0-12.0) Seconds INR 1.0 (0.9-1.1) APTT 26 (21-31) Seconds PTT Ratio 1.0 Sodium 135 L (136-145) mmol/L Potassium 4.1 (3.5-5.1) mmol/L Chloride 104 (98-107) mmol/L Carbon Dioxide 24 (21-32) mmol/L Anion Gap 7 (3-11) BUN 14 (6-23) mg/dl Creatinine 0.60 (0.6-1.2) mg/dl Est Cr Clr Drug Dosing 132.3 ml/min Est GFR ( Amer) 116.4 ml/min Est GFR (Non-Af Amer) 100.5 ml/min BUN/Creatinine Ratio 23.3 H (10-20) Glucose 94 (70-99(Fasting)) mg/dl Calcium 8.7 (8.6-10.3) mg/dl Magnesium 2.0 (1.7-2.4) mg/dl Total Bilirubin 0.5 (0.2-1.0) mg/dl AST 24 (13-39) U/L ALT 33 (7-52) U/L Alkaline Phosphatase 91 (34-104) U/L Troponin I High Sens 3.4 (0-14) pg/ml Total Protein 7.3 (6.0-8.3) gm/dl Albumin 4.1 (3.4-5.0) gm/dl Globulin 3.2 (2.5-4.0) gm/dl Albumin/Globulin Ratio 1.3 (0.9-2) Administered Medications Sodium Chloride (Nss) 1,000 mls @ 100 mls/hr IV .Q10H GUERDA Stop: 09/18/23 16:14 Last Admin: 08/19/23 16:15 Dose: 100 mls/hr Documented By: BRANDON Insulin Aspart (Insulin Aspart Per Unit Charge) 0 units SC ACHS GUERDA Stop: 09/18/23 16:29 Last Admin: 08/19/23 16:16 Dose: Not Given Documented By: BRANDON Discontinued Medications Diphenhydramine HCl (Diphenhydramine 50 Mg/Ml Vial) 25 mg IV NOW STA Stop: 08/19/23 10:54 Last Admin: 08/19/23 11:08 Dose: 25 mg Documented By: MILLER Sodium Chloride (Nss) 500 mls @ 999 mls/hr IV .Q31M ONE Stop: 08/19/23 11:23 Last Infusion: 08/19/23 11:41 Dose: Infused Documented By: Admin: 08/19/23 11:08 Dose: 999 mls/hr Documented By: MILLER Acetaminophen (Ofirmev) 1,000 mg in 100 mls @ 400 mls/hr IV NOW STA Stop: 08/19/23 11:07 Last Infusion: 08/19/23 11:41 Dose: Infused Documented By: Admin: 08/19/23 11:08 Dose: 400 mls/hr Documented By: MILLER Prochlorperazine 5 mg/ Syringe 5 mls @ 5 mls/min IV ONE ONE Stop: 08/19/23 11:31 Last Admin: 08/19/23 13:13 Dose: Not Given Documented By: CHRISTOS Ioversol (Optiray 320 125ml) 119 ml IV ONCE ONE Stop: 08/19/23 12:43 Last Admin: 08/19/23 12:43 Dose: 119 ml Documented By: DANIEL Ketorolac Tromethamine (Ketorolac 30 Mg/Ml Vial) 30 mg IV NOW ONE Stop: 08/19/23 15:56 Last Admin: 08/19/23 16:15 Dose: 30 mg Documented By: BRANDON Metoclopramide HCl (Metoclopramide Hcl Inj 5 Mg/Ml 2 Ml Vial) 10 mg IV NOW STA Stop: 08/19/23 15:56 Last Admin: 08/19/23 16:15 Dose: 10 mg Documented By: BRANDON Imaging Data Radiologist's Impression: Head CT 08/19/23 10:54 CT angio neck with con, CT head/brain wo con, CT angio head w con CLINICAL HISTORY: neuro deficit, acute stroke suspected TECHNIQUE: Contiguous axial CT images of the head were acquired from the base of the skull to the vertex without intravenous contrast administration. CT angiography of the head and neck was performed following intravenous administration of iodinated contrast. Coronal and sagittal MIPS were obtained from the axial data set and were submitted for review. Automated dose lowering techniques and/or adjustment according to patient size were utilized for this examination. All measurements were calculated based on NASCET criteria. CT DOSE: 1149.98 mGy.cm Comparison: None available at the time of this dictation. FINDINGS: CT head: There is no acute intracranial hemorrhage or evidence of acute territorial infarction. No shift of the midline structures, mass effect, or extra-axial abnormalities are shown. Lungs and soft tissues are unremarkable. CTA Neck: The aortic arch and the origins of the innominate, left subclavian, and left common carotid artery are not imaged. There is no significant atherosclerotic plaque in the aortic arch or the origins of the innominate, left common carotid, and left subclavian arteries. The common carotid, external carotid, cervical segments of the internal carotid arteries, and the cervical segments of the vertebral arteries are patent without hemodynamically significant stenosis. The right vertebral artery is dominant. CTA Head: The anterior and posterior cerebral circulations are patent. No hemodynamically significant stenosis, aneurysm, dissection, or arteriovenous malformation is shown. IMPRESSION: 1. No acute intracranial hemorrhage, evidence of acute territorial infarction, or other acute intracranial disease process. 2. No occlusion, hemodynamically significant stenosis, or dissection in the major cervical arteries. 3. No occlusion, hemodynamically significant stenosis, aneurysm, dissection, or arteriovenous malformation in the major intracranial arteries. Assessment of stenosis of the internal carotid arteries is based on NASCET criteria. ACT 112: Negative or not required by law. Electronically signed by: Rinku Johns M.D. 08/19/2023 12:56 PM Head CTA 08/19/23 10:54 CT angio neck with con, CT head/brain wo con, CT angio head w con CLINICAL HISTORY: neuro deficit, acute stroke suspected TECHNIQUE: Contiguous axial CT images of the head were acquired from the base of the skull to the vertex without intravenous contrast administration. CT angiography of the head and neck was performed following intravenous administration of iodinated contrast. Coronal and sagittal MIPS were obtained from the axial data set and were submitted for review. Automated dose lowering techniques and/or adjustment according to patient size were utilized for this examination. All measurements were calculated based on NASCET criteria. CT DOSE: 1149.98 mGy.cm Comparison: None available at the time of this dictation. FINDINGS: CT head: There is no acute intracranial hemorrhage or evidence of acute territorial infarction. No shift of the midline structures, mass effect, or extra-axial abnormalities are shown. Lungs and soft tissues are unremarkable. CTA Neck: The aortic arch and the origins of the innominate, left subclavian, and left common carotid artery are not imaged. There is no significant atherosclerotic plaque in the aortic arch or the origins of the innominate, left common carotid, and left subclavian arteries. The common carotid, external carotid, cervical segments of the internal carotid arteries, and the cervical segments of the vertebral arteries are patent without hemodynamically significant stenosis. The right vertebral artery is dominant. CTA Head: The anterior and posterior cerebral circulations are patent. No hemodynamically significant stenosis, aneurysm, dissection, or arteriovenous malformation is shown. IMPRESSION: 1. No acute intracranial hemorrhage, evidence of acute territorial infarction, or other acute intracranial disease process. 2. No occlusion, hemodynamically significant stenosis, or dissection in the major cervical arteries. 3. No occlusion, hemodynamically significant stenosis, aneurysm, dissection, or arteriovenous malformation in the major intracranial arteries. Assessment of stenosis of the internal carotid arteries is based on NASCET criteria. ACT 112: Negative or not required by law. Electronically signed by: Rinku Johns M.D. 08/19/2023 12:56 PM Neck CTA 08/19/23 10:54 CT angio neck with con, CT head/brain wo con, CT angio head w con CLINICAL HISTORY: neuro deficit, acute stroke suspected TECHNIQUE: Contiguous axial CT images of the head were acquired from the base of the skull to the vertex without intravenous contrast administration. CT angiography of the head and neck was performed following intravenous administration of iodinated contrast. Coronal and sagittal MIPS were obtained from the axial data set and were submitted for review. Automated dose lowering techniques and/or adjustment according to patient size were utilized for this examination. All measurements were calculated based on NASCET criteria. CT DOSE: 1149.98 mGy.cm Comparison: None available at the time of this dictation. FINDINGS: CT head: There is no acute intracranial hemorrhage or evidence of acute territorial infarction. No shift of the midline structures, mass effect, or extra-axial abnormalities are shown. Lungs and soft tissues are unremarkable. CTA Neck: The aortic arch and the origins of the innominate, left subclavian, and left common carotid artery are not imaged. There is no significant atherosclerotic plaque in the aortic arch or the origins of the innominate, left common carotid, and left subclavian arteries. The common carotid, external carotid, cervical segments of the internal carotid arteries, and the cervical segments of the vertebral arteries are patent without hemodynamically significant stenosis. The right vertebral artery is dominant. CTA Head: The anterior and posterior cerebral circulations are patent. No hemodynamically significant stenosis, aneurysm, dissection, or arteriovenous malformation is shown. IMPRESSION: 1. No acute intracranial hemorrhage, evidence of acute territorial infarction, or other acute intracranial disease process. 2. No occlusion, hemodynamically significant stenosis, or dissection in the major cervical arteries. 3. No occlusion, hemodynamically significant stenosis, aneurysm, dissection, or arteriovenous malformation in the major intracranial arteries. Assessment of stenosis of the internal carotid arteries is based on NASCET criteria. ACT 112: Negative or not required by law. Electronically signed by: Rinku Johns M.D. 08/19/2023 12:56 PM Discharge Plan Visit Data Chief Complaint: Referred by Doctor Stated Complaint: NUMBNESS ON LEFT SIDE, LIPS TINGLING ED Provider: Kiko Newby Discharge Problem: Left sided numbness, Headache, Rash, Stroke-like symptoms Patient Disposition: Admitted As Inpatient Condition: Fair Discharge Instructions Interventions: ED Discharge Assessment Last Done: 08/19/23 15:06 Discharge Problem: Headache Qualifiers: Headache type: unspecified Headache chronicity pattern: acute headache I ntractability: not intractable Qualified Code(s): R51.9 - Headache, unspecified
[2023-08-19] MEDS: diphenhydrAMINE 50 MG/ML VIAL IV STA (11:08)
[2023-08-19] MEDS: SODIUM CHLORIDE 0.9% 500 ML IV ONE (11:08)
[2023-08-19] MEDS: ACETAMINOPHEN 1,000 MG/100 ML VIAL IV STA (11:08)
[2023-08-19 11:30] LABS: Basophils # (auto) 0.06 K/uL (0.00-0.20); Basophils % (auto) 0.6 %; Eosinophils # (auto) 0.21 K/uL (0.00-0.50); Hematocrit (blood only) 40.9 % (37.0-47.0); Hemoglobin 12.4 g/dl (12.0-16.0); Immature Granulocytes # (auto) 0.08 K/uL (0.01-0.20); Immature Granulocytes % (auto) 0.7 %; Lymphocytes # (auto) 2.92 K/uL (1.20-3.40); Lymphocytes % (auto) 27.3 %; Mean Corpuscular Hemoglobin 25.6 pg (25.0-34.0); Mean Corpuscular Hgb Conc 30.3 g/dL (32.0-36.0); Mean Corpuscular Volume 84.5 fL (80.0-100.0); Mean Platelet Volume 8.9 fL (9.4-12.4); Monocytes # (auto) 1.05 K/uL (0.11-0.59); Monocytes % (auto) 9.8 %; Neutrophils # (auto) 6.37 K/uL (1.40-6.50); Neutrophils % (auto) 59.6 %; Platelet Count 313 K/uL (130-400); RDW Coefficient of Variation 14.9 % (11.5-14.5); RDW Standard Deviation 45.5 fL (36.4-46.3); Red Blood Count 4.84 M/uL (4.20-5.40); White Blood Count 10.69 K/ul (4.8-10.8)
[2023-08-19] MEDS: PROCHLORPERAZINE 5 MG in SYRINGE 4 ML IV ONE (11:40)
[2023-08-19 11:47] LABS: Albumin Globulin Ratio 1.3 (0.9-2); Albumin Level 4.1 gm/dl (3.4-5.0); BUN Creatinine Ratio 23.3 (10-20); Bilirubin,Total 0.5 mg/dl (0.2-1.0); Calcium 8.7 mg/dl (8.6-10.3); Creatinine Clr Calc Pharmacy 132.3 ml/min; Est GFR (African American) 116.4 ml/min; Est GFR (Non-African American) 100.5 ml/min; Globulin 3.2 gm/dl (2.5-4.0); Potassium 4.1 mmol/L (3.5-5.1); Total Protein 7.3 gm/dl (6.0-8.3)
[2023-08-19 11:52] LABS: Troponin I High Sensitivity 3.4 pg/ml (0-14)
[2023-08-19 11:59] LABS: Partial Thromboplastin Time 26 Seconds (21-31); Prothrombin Time 10.4 Seconds (9.0-12.0)
[2023-08-19] MEDS: OPTIRAY 320 125ml IV ONE (12:43)
--- NOTE | 2023-08-19 12:57 | CT Scan Report ---
CT angio neck with con, CT head/brain wo con, CT angio head w con CLINICAL HISTORY: neuro deficit, acute stroke suspected TECHNIQUE: Contiguous axial CT images of the head were acquired from the base of the skull to the milagros andrea without intravenous contrast administration. CT angiography of the head and neck was performed f ollowing intravenous administration of iodinated contrast. Coronal and sagittal MIPS were obtained fr om the axial data set and were submitted for review. Automated dose lowering techniques and/or adjus tment according to patient size were utilized for this examination. All measurements were calculated based on NASCET criteria. CT DOSE: 1149.98 mGy.cm Comparison: None available at the time of this dictation. FINDINGS: CT head: There is no acute intracranial hemorrhage or evidence of acute territorial infarction. No sh ift of the midline structures, mass effect, or extra-axial abnormalities are shown. Lungs and soft tissues are unremarkable. CTA Neck: The aortic arch and the origins of the innominate, left subclavian, and left common caroti d artery are not imaged. There is no significant atherosclerotic plaque in the aortic arch or the yisel gins of the innominate, left common carotid, and left subclavian arteries. The common carotid, exter nal carotid, cervical segments of the internal carotid arteries, and the cervical segments of the milagros tebral arteries are patent without hemodynamically significant stenosis. The right vertebral artery i s dominant. CTA Head: The anterior and posterior cerebral circulations are patent. No hemodynamically significan t stenosis, aneurysm, dissection, or arteriovenous malformation is shown. IMPRESSION: 1. No acute intracranial hemorrhage, evidence of acute territorial infarction, or other acute intrac ranial disease process. 2. No occlusion, hemodynamically significant stenosis, or dissection in the major cervical arteries. 3. No occlusion, hemodynamically significant stenosis, aneurysm, dissection, or arteriovenous malfor mation in the major intracranial arteries. Assessment of stenosis of the internal carotid arteries is based on NASCET criteria. ACT 112: Negative or not required by law. Electronically signed by: Rinku Johns M.D. 08/19/2023 12:56 PM
--- NOTE | 2023-08-19 14:38 | History & Physical Report ---
Date of Service August 19, 2023 Assessment & Plan (1) Migraine headache: Plan: Patient presents with headache that feels like her usual migraine attack but this time it is associated with left facial and arm numbness. Due to concerns of stroke, she had CT head, CTA of head and neck done which were all negative The ER physician is still concerned and thought that the patient needed to be admitted for MRI. MRI brain ordered This is a typical migraine attack and will treat like 1 Reglan IV + Toradol IV + IV fluid x 1. Treat with Tylenol as needed (2) Hypertension: Plan: Continue losartan, diltiazem, Lasix (to be given tomorrow) (3) Restless leg syndrome: Plan: Continue ropinirole, gabapentin (4) Type 2 diabetes mellitus: Plan: Patient is on Mounjaro and metformin at home. Hold. Sliding scale insulin (5) Severe obstructive sleep apnea: Plan: Patient is supposed to use CPAP at home but she is noncompliant Ordered CPAP to be used here (6) Sensory polyneuropathy: Plan: Continue gabapentin, trazodone Plan Full code DVT prophylaxis heparin 3 times daily History of Present Illness Chief Complaint: Headache, left face and arm numbness. Primary Care Provider: Korina Carr MD This is a 58-year-old female who presented to the emergency room with the above chief complaint. The patient has a history of migraine headaches. She stated that the headache started yesterday, followed by some numbness and tingling sensation in the left side of her face and arm. She does not feel weak on the left arm or her face. She says that the headache feels like her usual migraine headache, but she never had numbness or tingling with her headaches in the past. She went to urgent care care this morning and was sent to the emergency room for concerns of a stroke. She had CT head, CTA of the head and neck that were all negative. I have been requested to admit her to rule out stroke by doing an MRI of the head. The patient tells me that she likes her room dark because the lights seems to bother her headache. This is typical for her migraine headaches. Currently her pain is at a 6/10 in intensity. Her numbness on the left side of her face and arm has remained but the tingling sensation is improving. Past medical history 1. Gqo-[id number] diabetes mellitus type 2, on Mounjaro and metformin 2. Morbid obesity. BMI 46 3. Benign essential hypertension. On losartan, diltiazem, Lasix 4. Hyperlipidemia. On Lipitor 5. Diabetic neuropathy, on gabapentin, trazodone 6. Neuropathic pain. On trazodone 7. Restless leg syndrome. On ropinirole 8. Obstructive sleep apnea. Not compliant to CPAP 9. History of migraine headaches. Takes ibuprofen and Tylenol as needed Allergies Allergy/AdvReac Type Severity Reaction Status Date / Time metronidazole AdvReac Intermediate headache Verified 08/19/23 09:51 erythromycin base AdvReac Mild UPSET Verified 08/19/23 09:51 STOMACH lisinopril AdvReac Mild cough Verified 08/19/23 09:51 Home Medications Medication Instructions Recorded Confirmed Type cholecalciferol (vitamin D3) 125 250 mcg PO QAM 07/22/20 08/19/23 History mcg (5,000 unit) tablet (Vitamin D3) diphenhydramine HCl 50 mg capsule 50 mg PO HS 07/27/20 08/19/23 History pimecrolimus 1 % topical cream 1 applic topical BID PRN allergies 08/11/20 08/19/23 History gabapentin 300 mg capsule 600 mg (2 x 300 mg) PO HS #180 caps 01/24/23 08/19/23 Rx metformin 1,000 mg tablet 1,000 mg PO BID #180 tabs 01/24/23 08/19/23 Rx ropinirole 2 mg tablet 4 mg (2 x 2 mg) PO QPM #180 tabs 01/24/23 08/19/23 Rx trazodone 50 mg tablet 50 mg PO HS PRN sleep #90 tabs 01/24/23 08/19/23 Rx vitamin B complex (B 1 tab PO QAM 01/24/23 08/19/23 History Complex-Vitamin B12 tablet) atorvastatin 40 mg tablet 40 mg PO QPM 05/07/23 08/19/23 History diltiazem HCl 120 mg capsule,24 120 mg PO QAM 05/07/23 08/19/23 History hr,extended release furosemide 20 mg tablet 20 mg PO QAM edema 05/07/23 08/19/23 History gabapentin 100 mg capsule 100 mg PO QPM 05/07/23 08/19/23 History losartan 100 mg tablet 100 mg PO QAM 05/07/23 08/19/23 History triamcinolone acetonide 0.1 % 1 applic topical BID PRN allergies 05/07/23 08/19/23 History topical cream valacyclovir 500 mg tablet 500 mg PO QAM 05/07/23 08/19/23 History doxycycline monohydrate 40 mg See Rx Instructions .Route 06/07/23 08/19/23 Rx capsule,immediate - delay release .COMPLEX #90 caps (Oracea) albuterol sulfate 90 mcg/actuation 2 puff inhalation QID #18 grams 06/25/23 08/19/23 Rx aerosol inhaler (Ventolin HFA) meloxicam 15 mg tablet 15 mg PO DAILY PRN pain #30 tabs 07/11/23 08/19/23 Rx tirzepatide 12.5 mg/0.5 mL 12.5 mg (0.5 mL) subcut Q7D 28 08/07/23 08/19/23 Rx subcutaneous pen injector days #2 mL nystatin 100,000 unit/gram topical 1 applic topical TID #60 grams 08/19/23 08/19/23 Rx powder Past Med/Surg History Problem List (Updated 08/19/23 @ 14:53 by Liat Connelly MD) Migraine headache Organic periodic limb movement disorder (Chronic) Nocturnal hypoxemia (Chronic) Alpha thalassemia (Chronic) Sensory polyneuropathy (Chronic) Rosacea (Chronic) Rotator cuff arthropathy of left shoulder (Chronic) had injections, no surgery Hypertension (Chronic) Restless leg syndrome (Chronic) Asthma (Chronic) emergency inhaler Acid reflux (Chronic) Type 2 diabetes mellitus (Chronic) Cervical disc disease (Chronic) Fatty liver (Chronic) Metabolic syndrome (Chronic) Morbid obesity with BMI of 50.0-59.9, adult (Chronic) Chronic cerebral ischemia (Chronic) Severe obstructive sleep apnea (Chronic) BiPap Medical History History of colon polyps Complicated migraine (07/2020) Vitamin D deficiency Surgical History Hx of bilateral salpingectomy and left ooperectomy Hx of cardiac catheterization (~04/2019) [facility], due to chest pain, no stents, no current canvas cutter History of esophagogastroduodenoscopy (EGD) History of incision and drainage skin abscess History of dilatation and curettage History of arthroscopy of right shoulder History of gynecologic surgery biopsy of inside of uterus/cervix "took out endometrial lining and 2 masses"--benign History of total bilateral knee replacement (TKR) History of cholecystectomy History of colonoscopy History of tooth extraction History of wisdom tooth extraction Family History Sister , 58 Diabetes Uterine cancer Grandmother (Maternal) Diabetes Father Colorectal cancer Family/Other Cardiac disorder Hypertension Cancer Breast cancer Prostate cancer Myocardial infarction Aunt Breast cancer Mother , age 87 Cervical cancer treated with radiation only 50 years ago? 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 AOx3. Morbidly obese Pupils: Equally reactive to light and accommodation Neck: No masses, no thyromegaly Respiration: Clear to auscultation bilaterally. Normal effort Cardiovascular: S1-S2/regular rate and rhythm. No murmur, rubs or gallop. No edema. Abdomen: Soft, nontender, nondistended. No hepatosplenomegaly Musculoskeletal: No clubbing, no cyanosis, normal range of motion Skin: No rashes, no nodules Neuro exam: Cranial nerves intact, able to move all 4 extremities. Psychiatric: Patient has good judgment and insight. AOx3. Mood and affect appear normal Lymphatics: No cervical or axillary lymphadenopathy noted Results & Data Results & Data Vital Signs (Past 12 Hours) Vital Signs Temp Pulse Pulse Resp BP BP Pulse Ox 08/19/23 14:21 74 18 144/75 H 100 08/19/23 12:51 79 18 154/77 H 100 08/19/23 12:24 80 08/19/23 11:18 83 21 162/84 H 99 08/19/23 10:36 36.5 C 87 18 153/84 H 98 O2 Del Method 08/19/23 14:21 Room Air 08/19/23 12:51 Room Air 08/19/23 12:24 08/19/23 11:18 Room Air 08/19/23 10:36 Room Air Laboratory Results Abnormal lab results 08/19/23 Range/Units 11:14 MCHC 30.3 L (32.0-36.0) g/dL RDW Coeff of Deepak 14.9 H (11.5-14.5) % MPV 8.9 L (9.4-12.4) fL Sauk # (Auto) 1.05 H (0.11-0.59) K/uL Sodium 135 L (136-145) mmol/L BUN/Creatinine Ratio 23.3 H (10-20) Diagnostic Findings Head CT 08/19/23 10:54 CT angio neck with con, CT head/brain wo con, CT angio head w con CLINICAL HISTORY: neuro deficit, acute stroke suspected TECHNIQUE: Contiguous axial CT images of the head were acquired from the base of the skull to the vertex without intravenous contrast administration. CT angiography of the head and neck was performed following intravenous administration of iodinated contrast. Coronal and sagittal MIPS were obtained from the axial data set and were submitted for review. Automated dose lowering techniques and/or adjustment according to patient size were utilized for this examination. All measurements were calculated based on NASCET criteria. CT DOSE: 1149.98 mGy.cm Comparison: None available at the time of this dictation. FINDINGS: CT head: There is no acute intracranial hemorrhage or evidence of acute territorial infarction. No shift of the midline structures, mass effect, or extra-axial abnormalities are shown. Lungs and soft tissues are unremarkable. CTA Neck: The aortic arch and the origins of the innominate, left subclavian, and left common carotid artery are not imaged. There is no significant atherosclerotic plaque in the aortic arch or the origins of the innominate, left common carotid, and left subclavian arteries. The common carotid, external carotid, cervical segments of the internal carotid arteries, and the cervical segments of the vertebral arteries are patent without hemodynamically significant stenosis. The right vertebral artery is dominant. CTA Head: The anterior and posterior cerebral circulations are patent. No hemodynamically significant stenosis, aneurysm, dissection, or arteriovenous malformation is shown. IMPRESSION: 1. No acute intracranial hemorrhage, evidence of acute territorial infarction, or other acute intracranial disease process. 2. No occlusion, hemodynamically significant stenosis, or dissection in the major cervical arteries. 3. No occlusion, hemodynamically significant stenosis, aneurysm, dissection, or arteriovenous malformation in the major intracranial arteries. Assessment of stenosis of the internal carotid arteries is based on NASCET criteria. ACT 112: Negative or not required by law. Electronically signed by: Rinku Johns M.D. 08/19/2023 12:56 PM Head CTA 08/19/23 10:54 CT angio neck with con, CT head/brain wo con, CT angio head w con CLINICAL HISTORY: neuro deficit, acute stroke suspected TECHNIQUE: Contiguous axial CT images of the head were acquired from the base of the skull to the vertex without intravenous contrast administration. CT angiography of the head and neck was performed following intravenous administration of iodinated contrast. Coronal and sagittal MIPS were obtained from the axial data set and were submitted for review. Automated dose lowering techniques and/or adjustment according to patient size were utilized for this examination. All measurements were calculated based on NASCET criteria. CT DOSE: 1149.98 mGy.cm Comparison: None available at the time of this dictation. FINDINGS: CT head: There is no acute intracranial hemorrhage or evidence of acute territorial infarction. No shift of the midline structures, mass effect, or extra-axial abnormalities are shown. Lungs and soft tissues are unremarkable. CTA Neck: The aortic arch and the origins of the innominate, left subclavian, and left common carotid artery are not imaged. There is no significant atherosclerotic plaque in the aortic arch or the origins of the innominate, left common carotid, and left subclavian arteries. The common carotid, external carotid, cervical segments of the internal carotid arteries, and the cervical segments of the vertebral arteries are patent without hemodynamically significant stenosis. The right vertebral artery is dominant. CTA Head: The anterior and posterior cerebral circulations are patent. No hemodynamically significant stenosis, aneurysm, dissection, or arteriovenous malformation is shown. IMPRESSION: 1. No acute intracranial hemorrhage, evidence of acute territorial infarction, or other acute intracranial disease process. 2. No occlusion, hemodynamically significant stenosis, or dissection in the major cervical arteries. 3. No occlusion, hemodynamically significant stenosis, aneurysm, dissection, or arteriovenous malformation in the major intracranial arteries. Assessment of stenosis of the internal carotid arteries is based on NASCET criteria. ACT 112: Negative or not required by law. Electronically signed by: Rinku Johns M.D. 08/19/2023 12:56 PM Neck CTA 08/19/23 10:54 CT angio neck with con, CT head/brain wo con, CT angio head w con CLINICAL HISTORY: neuro deficit, acute stroke suspected TECHNIQUE: Contiguous axial CT images of the head were acquired from the base of the skull to the vertex without intravenous contrast administration. CT angiography of the head and neck was performed following intravenous administration of iodinated contrast. Coronal and sagittal MIPS were obtained from the axial data set and were submitted for review. Automated dose lowering techniques and/or adjustment according to patient size were utilized for this examination. All measurements were calculated based on NASCET criteria. CT DOSE: 1149.98 mGy.cm Comparison: None available at the time of this dictation. FINDINGS: CT head: There is no acute intracranial hemorrhage or evidence of acute terr itorial infarction. No shift of the midline structures, mass effect, or extra- axial abnormalities are shown. Lungs and soft tissues are unremarkable. CTA Neck: The aortic arch and the origins of the innominate, left subclavian, and left common carotid artery are not imaged. There is no significant atherosclerotic plaque in the aortic arch or the origins of the innominate, left common carotid, and left subclavian arteries. The common carotid, external carotid, cervical segments of the internal carotid arteries, and the cervical segments of the vertebral arteries are patent without hemodynamically significant stenosis. The right vertebral artery is dominant. CTA Head: The anterior and posterior cerebral circulations are patent. No hemodynamically significant stenosis, aneurysm, dissection, or arteriovenous malformation is shown. IMPRESSION: 1. No acute intracranial hemorrhage, evidence of acute territorial infarction, or other acute intracranial disease process. 2. No occlusion, hemodynamically significant stenosis, or dissection in the major cervical arteries. 3. No occlusion, hemodynamically significant stenosis, aneurysm, dissection, or arteriovenous malformation in the major intracranial arteries. Assessment of stenosis of the internal carotid arteries is based on NASCET criteria. ACT 112: Negative or not required by law. Electronically signed by: Rinku Johns M.D. 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
[2023-08-19] MEDS ORDERED: ONDANSETRON INJ 2 MG/ML 2 ML VIAL IV PRN (15:55)
[2023-08-19] MEDS ORDERED: GLUCOSE 40% GEL 15 GM TUBE PO PRN (15:55)
[2023-08-19] MEDS ORDERED: GLUCAGON FOR INJ 1 MG VIAL SQ PRN (15:55)
[2023-08-19] MEDS ORDERED: ALUMINUM/MAGNESIUM SUSP 30 ML UDC PO PRN (15:55)
[2023-08-19] MEDS ORDERED: CARBOHYDRATES FOR HYPOGLYCEMIA PO PRN (15:55)
[2023-08-19] MEDS ORDERED: GLUCOSE 10 TAB/TUBE PO PRN (15:55)
[2023-08-19] MEDS ORDERED: DEXTROSE 50% 50 ML SYRINGE IV PRN (15:55)
--- NOTE | 2023-08-19 16:05 | Magnetic Resonance Report ---
MR brain wo con CLINICAL HISTORY: L face and arm numbness TECHNIQUE: Multiplanar and multisequence MR images of the brain were obtained without intravenous con trast. Comparison: Comparison is made to MRI brain 07/22/2020 and CTA head and neck 08/19/2023 FINDINGS: No abnormal restricted diffusion is identified. Foci of T2 and FLAIR hyperintensity are noted in the paraventricular areas consistent with chronic small vessel ischemic disease. Ex vacuo ventriculomegal y and sulcal enlargement is noted compatible with diffuse volume loss. No mass is seen. There is no m ass effect or midline shift. There is no evidence of acute intraparenchymal hemorrhage. No extra axia l fluid collections are seen. The corpus callosum, pituitary gland, and cerebellar tonsils appear leila ssly unremarkable. Flow voids of the major intracranial arterial vessels are identified. The imaged portions of the para nasal sinuses, mastoid air cells, and orbits are unremarkable. IMPRESSION: No acute abnormality and in particular no evidence of acute infarct. ACT 112: Negative or not required by law. Electronically signed by: Rinku Johns M.D. 08/19/2023 4:04 PM
[2023-08-19] MEDS: KETOROLAC 30 MG/ML VIAL IV ONE (16:15)
[2023-08-19] MEDS: METOCLOPRAMIDE HCL INJ 5 MG/ML 2 ML VIAL IV STA (16:15)
[2023-08-19] MEDS: SODIUM CHLORIDE 0.9% 1,000 ML IV SCH (16:15)
[2023-08-19] MEDS: INSULIN ASPART PER UNIT CHARGE SC SCH (16:16)
[2023-08-19] MEDS: rOPINIRole HCL 2 MG TABLET PO SCH (17:24)
[2023-08-19] MEDS: GABAPENTIN 300 MG CAP PO SCH (17:24)
[2023-08-19 17:30] LABS: Appearance Urine Clear (Clear); Bacteria Urine Automated None Seen (None Seen); Bilirubin Urine Negative (Negative); Blood Urine Negative (Negative); Cast Urine Automated 0-2 /lpf (0-2); Color Urine Yellow; Epithelial Cell Urine Auto 0-2 /hpf (0-2); Glucose Urine UA Negative (Negative); Ketones Urine Negative (Negative); Leukocyte Esterase Urine Trace (Negative); Nitrite Urine Negative (Negative); Protein Urine Negative (Negative); RBC Urine Automated 0-2 /hpf (0-2); Specific Gravity Urine 1.028 (1.000-1.030); Urobilinogen Urine Negative (Negative); WBC Urine Automated 0-5 /hpf (0-5); pH Urine 5.5 (4.5-7.5)
[2023-08-19] MEDS: ACETAMINOPHEN 325 MG TAB PO PRN (19:26)
[2023-08-19] MEDS: traZODone HCL 50 MG TAB PO PRN (20:57)
[2023-08-19] MEDS: ATORVASTATIN 40 MG TAB PO SCH (20:57)
[2023-08-19] MEDS: HEPARIN SOD 5,000 UNIT/0.5 ML VIAL SQ SCH (20:57)
[2023-08-19] MEDS: NYSTATIN POWDER 15GM BTL EXT SCH (20:57)
--- NOTE | 2023-08-20 06:23 | Electrocardiogram Report ---
Test Reason : Blood Pressure : / mmHG Vent. Rate : 084 BPM Atrial Rate : 084 BPM P-R Int : 216 ms QRS Dur : 092 ms QT Int : 380 ms P-R-T Axes : 042 008 058 degrees QTc Int : 450 ms Sinus rhythm with 1st degree A-V block Abnormal ECG When compared with ECG of 20-JAN-2022 05:14, No significant change was found Confirmed by Tony Haq ([id number]) on 08/20/2023 6:22:50 AM Referred By: Confirmed By:Tony Haq
[2023-08-20] MEDS: FUROSEMIDE 20 MG TAB PO SCH (07:43)
[2023-08-20] MEDS: dilTIAZem HCL 120 MG CAPCR PO SCH (07:44)
[2023-08-20] MEDS: LOSARTAN POTASSIUM 50 MG TAB PO SCH (07:44)
--- NOTE | 2023-08-20 10:15 | Discharge Summary ---
Date of Service August 20, 2023 Admission HPI Per Admitting Provider This is a 58-year-old female who presented to the emergency room with the above chief complaint. The patient has a history of migraine headaches. She stated that the headache started yesterday, followed by some numbness and tingling sensation in the left side of her face and arm. She does not feel weak on the left arm or her face. She says that the headache feels like her usual migraine headache, but she never had numbness or tingling with her headaches in the past. She went to urgent care care this morning and was sent to the emergency room for concerns of a stroke. She had CT head, CTA of the head and neck that were all negative. I have been requested to admit her to rule out stroke by doing an MRI of the head. The patient tells me that she likes her room dark because the lights seems to dinah ther her headache. This is typical for her migraine headaches. Currently her pain is at a 6/10 in intensity. Her numbness on the left side of her face and arm has remained but the tingling sensation is improving. Past medical history 1. Mrg-[id number]-[id number] diabetes mellitus type 2, on Mounjaro and metformin 2. Morbid obesity. BMI 46 3. Benign essential hypertension. On losartan, diltiazem, Lasix 4. Hyperlipidemia. On Lipitor 5. Diabetic neuropathy, on gabapentin, trazodone 6. Neuropathic pain. On trazodone 7. Restless leg syndrome. On ropinirole 8. Obstructive sleep apnea. Not compliant to CPAP 9. History of migraine headaches. Takes ibuprofen and Tylenol as needed Admission Exam Per Admitting Provider General appearance: Awake, conversant, able to answer questions appropriately. AOx3. Morbidly obese Pupils: Equally reactive to light and accommodation Neck: No masses, no thyromegaly Respiration: Clear to auscultation bilaterally. Normal effort Cardiovascular: S1-S2/regular rate and rhythm. No murmur, rubs or gallop. No edema. Abdomen: Soft, nontender, nondistended. No hepatosplenomegaly Musculoskeletal: No clubbing, no cyanosis, normal range of motion Skin: No rashes, no nodules Neuro exam: Cranial nerves intact, able to move all 4 extremities. Psychiatric: Patient has good judgment and insight. AOx3. Mood and affect appear normal Lymphatics: No cervical or axillary lymphadenopathy noted Principal Diagnosis Migraine headache with left face and arm numbness, stroke ruled out Discharge Exam General: Awake, conversant. Morbidly obese Heart: S1, S2/regular rate and rhythm, no murmur rubs or gallops Lungs: Clear to auscultation bilaterally. Normal effort Abdomen: Soft/nontender/nondistended. No hepatosplenomegaly Extremities: No clubbing/cyanosis. No edema Behavior: Appropriate, cooperative Discharge Data Allergies Allergy/AdvReac Type Severity Reaction Status Date / Time metronidazole AdvReac Intermediate headache Verified 08/19/23 09:51 erythromycin base AdvReac Mild UPSET Verified 08/19/23 09:51 STOMACH lisinopril AdvReac Mild cough Verified 08/19/23 09:51 Consultations 08/19/23 13:18 ED Decision to Admit Stat Ordered Studies 08/19/23 10:54 CT angio head w con Stat CT angio neck with con Stat CT head/brain wo con Stat 08/19/23 14:32 MRI Brain [MR brain wo con] Stat Hospital Course (1) Migraine headache: Patient presents with headache that feels like her usual migraine attack but this time it is associated with left facial and arm numbness. Due to concerns of stroke, she had CT head, CTA of head and neck done which were all negative The ER physician is still concerned and thought that the patient needed to be admitted for MRI. MRI brain ordered and is negative This is a typical migraine attack and I treated it like so She got Reglan IV + Toradol IV + IV fluid x 1. This morning she feels 100% better. Her headache is gone. The numbness and tingling sensation in the left side of her face and arm have resolved as well. (2) Hypertension: Continue losartan, diltiazem, Lasix (3) Restless leg syndrome: Continue ropinirole, gabapentin (4) Type 2 diabetes mellitus: Patient is on Mounjaro and metformin at home. Resume Sliding scale insulin (5) Severe obstructive sleep apnea: Patient is supposed to use CPAP at home but she is noncompliant (6) Sensory polyneuropathy: Continue gabapentin, trazodone Plan Discharge to home today Total Time Total Time Spent Total Time Spent (In Minutes): 35 Discharge Plan Discharge Items Patient Disposition: Home - Self-Care Reason For Visit: L FACE AND ARM NUMBNESS Discharge Diagnosis: Migraine headache with left face and arm numbness, stroke ruled out Condition on Discharge: Fair Activity: Resume your previous activity Non-emergency contact: Primary Care Provider Call non-emergency contact if: you have any medication questions and your symptoms worsen Follow-up/Referrals: Korina Carr MD [Primary Care Provider] - 08/28/23 2:00 pm (with [facility] Diet: Carb Consistent or DM2 and Heart Healthy Addtl Attending Provider Instructions: Advised to follow-up with your PCP in 1 week Pending Studies at Discharge: No Stand-Alone Forms: My [facility] Medications and DC Order Prescriptions: Continued doxycycline monohydrate [Oracea] 40 mg capsule,IR - delay rel,biphase See Rx Instructions .ROUTE .COMPLEX Qty: 90 0RF Dose Instruction: TAKE 1 CAPSULE BY MOUTH EVERY DAY Rx Instructions: TAKE 1 CAPSULE BY MOUTH EVERY DAY albuterol sulfate [Ventolin HFA] 90 mcg/actuation HFA aerosol inhaler 2 puff inhalation QID Qty: 18 2RF meloxicam 15 mg tablet 15 mg PO DAILY PRN (Reason: pain) Qty: 30 1RF vitamin B complex [B Complex-Vitamin B12] Tablet 1 tab PO QAM gabapentin 300 mg capsule 600 mg PO HS Qty: 180 3RF metformin 1,000 mg tablet 1,000 mg PO BID Qty: 180 3RF ropinirole 2 mg tablet 4 mg PO QPM Qty: 180 3RF trazodone 50 mg tablet 50 mg PO HS PRN (Reason: sleep) Qty: 90 1RF pimecrolimus 1 % cream 1 applic topical BID PRN (Reason: allergies) diphenhydramine HCl 50 mg capsule 50 mg PO HS tirzepatide 12.5 mg/0.5 mL pen injector 12.5 mg subcut Q7D 28 Days Qty: 2 2RF nystatin 100,000 unit/gram powder 1 applic topical TID Qty: 60 0RF cholecalciferol (vitamin D3) [Vitamin D3] 125 mcg (5,000 unit) Tablet 250 mcg PO QAM atorvastatin 40 mg tablet 40 mg PO QPM valacyclovir 500 mg tablet 500 mg PO QAM triamcinolone acetonide 0.1 % cream 1 applic topical BID PRN (Reason: allergies) Rx Instructions: Apply to areas of the trunk and extremities twice daily x 2 weeks as directed. diltiazem HCl 120 mg capsule,extended release 24 hr 120 mg PO QAM furosemide 20 mg tablet 20 mg PO QAM gabapentin 100 mg capsule 100 mg PO QPM Rx Instructions: 100 mg PO every afternoon; losartan 100 mg tablet 100 mg PO QAM Discharge Orders: Discharge Order (Routine); Ordered 08/20/23 Ordered By: Liat Boykin/Other Patient Handouts: Managing Type 2 Diabetes, Symptoms of Stroke Admission Data Admit Date/Time: 08/19/23 14:32 Attending Provider: Liat Connelly Admit Provider: Liat Connelly Primary Care Provider: Korina Carr Other Providers: Liat Connelly Other Interventions: Discharge Summary Assessment (RN) Last Done: 08/20/23 12:29 Coding Level of Care Code 66995 INP/OBS DISCH >30 MIN Diagnoses Migraine headache G43.909 Essential hypertension I10 Hypertension type: essential hypertension Restless leg syndrome G25.81 Type 2 diabetes mellitus without complication, with long-term current use of insulin E11.9; Z79.4 Diabetes mellitus complication status: without complication Diabetes mellitus half-way insulin use: with half-way use Severe obstructive sleep apnea G47.33 Sensory polyneuropathy G60.8
[2023-08-20] MEDS ORDERED: GABAPENTIN 100 MG CAP PO SCH (14:00)
== END 2023-08-20 12:59 | disposition home or self-care (01) ==
LOC: ED 10:27 → 2E 10:27

== ENCOUNTER 2023-10-14 19:35 | Observation (INO) ==
[2023-10-14 20:33] LABS: INR 0.9 (0.9-1.1); Prothrombin Time 10.3 Seconds (9.0-12.0)
[2023-10-14 20:41] LABS: Alanine Aminotransferase 31 U/L (7-52); Albumin Level 4.4 gm/dl (3.4-5.0); Alkaline Phosphatase 81 U/L (34-104); Anion Gap 11 (3-11); BUN Creatinine Ratio 30.8 (10-20); Bilirubin,Total 0.6 mg/dl (0.2-1.0); Blood Urea Nitrogen 24 mg/dl (6-23); Calcium 9.5 mg/dl (8.6-10.3); Carbon Dioxide 22 mmol/L (21-32); Chloride 101 mmol/L (98-107); Creatinine Clr Calc Pharmacy 105.3 ml/min; Est GFR (African American) 97.1 ml/min; Est GFR (Non-African American) 83.8 ml/min; Glucose 116 mg/dl (70-99(Fasting)); Lipase 37 U/L (11-82); Sodium 134 mmol/L (136-145)
[2023-10-14 20:42] LABS: Influenza A virus by PCR Negative (Neg); Influenza B virus by PCR Negative (Neg); RSV by PCR Negative (Neg); SARS CoV2 RNA(COVID-19) Ceph NEGATIVE (Negative)
[2023-10-14] MEDS: fentaNYL citrate PF 100 MCG/2 ML VIAL IV STA (20:55)
[2023-10-14] MEDS: ASPIRIN CHEW 324 MG PO STA (20:55)
[2023-10-14 21:17] LABS: Basophils # (auto) 0.06 K/uL (0.00-0.20); Basophils % (auto) 0.5 %; Eosinophils % (auto) 1.6 %; Hemoglobin 11.7 g/dl (12.0-16.0); Immature Granulocytes # (auto) 0.09 K/uL (0.01-0.20); Immature Granulocytes % (auto) 0.7 %; Lymphocytes # (auto) 3.42 K/uL (1.20-3.40); Lymphocytes % (auto) 28.1 %; Mean Corpuscular Hemoglobin 26.4 pg (25.0-34.0); Mean Corpuscular Hgb Conc 31.6 g/dL (32.0-36.0); Mean Corpuscular Volume 83.5 fL (80.0-100.0); Mean Platelet Volume 9.2 fL (9.4-12.4); Monocytes # (auto) 1.06 K/uL (0.11-0.59); Monocytes % (auto) 8.7 %; Neutrophils # (auto) 7.33 K/uL (1.40-6.50); Neutrophils % (auto) 60.4 %; Platelet Count 282 K/uL (130-400); RDW Coefficient of Variation 15.4 % (11.5-14.5); RDW Standard Deviation 47.2 fL (36.4-46.3); Red Blood Count 4.43 M/uL (4.20-5.40); White Blood Count 12.16 K/ul (4.8-10.8)
[2023-10-14 21:23] LABS: Potassium 4.1 mmol/L (3.5-5.1)
--- NOTE | 2023-10-14 21:49 | Emergency Department Note ---
Impression & Plan Chest pain, Shortness of breath ED Provider Note HISTORY OF PRESENT ILLNESS: Patient is a 58-year-old female presenting with chest pain and shortness of breath. Patient reports that she has been feeling short of breath for the last few days. Reports that the shortness of breath seems to be worse with exertion. Tonight she was packing to go on a vacation to the beach when her family noticed that she seemed to be significantly short of breath and winded and they helped her lay down on the couch. Patient reports she developed some chest pressure and pain in her right clavicle. She is still complaining of pressure in her chest on arrival to the ER. She denies ever having this chest pressure before. Denies any DVT or PE history. Denies any history of cardiac stents. She is not on any anticoagulation or antiplatelet therapy. She states that she tried to walk her dog earlier today and became so winded after only 3-4 steps. She has been using her inhaler frequently throughout the day, with minimal relief in her symptoms. Denies any recent cough or fevers. Denies any recent surgeries or long travel trips. ROS: as above PHYSICAL EXAM: Constitutional: Patient appears in no acute distress. Morbidly obese HENT: Head: Normocephalic and atraumatic. Eyes: EOMI, PERRL Mouth/Throat: Mucous membranes moist. Neck: Trachea midline. Neck supple. Cardiovascular: RRR, No murmurs, rubs or gallops. Intact distal pulses. Pulmonary/Chest: No respiratory distress. Breath sounds clear and equal bilaterally. No wheezes or rales. Abdominal: Abdomen soft, no tenderness, rebound or guarding. Musculoskeletal: No edema, tenderness or deformity noted. Skin: Warm and dry. No rash, erythema, pallor or cyanosis Psychiatric: Appropriate mood and affect for situation. Neurological: Alert and keenly responsive. CN II-XII grossly intact, moving all extremities equally and fully. MDM: - Vitals signs stable. - History obtained via patient was. History as above. - Chronic conditions affecting care: HTN; HLD; DM-2; RADHA - Differential diagnoses include, but are not limited to: Acute coronary syndrome; pulmonary embolism; dissection; tension pneumothorax; esophageal rupture; pneumonia - Order placed for continuous cardiac monitoring. At this time, monitor showed rate of 78 bpm with normal sinus rhythm, per my interpretation. - External medical records reviewed. [facility] visit note dated 09/28/2023 was reviewed. Patient was seen in their clinic for a follow-up for her hypertension. A slight adjustment was made for her antihypertensive. - EKG interpreted by myself showed normal sinus rhythm. Rate 84 bpm. QT 370. No acute ischemic changes. - Laboratory workup interpreted by myself showed leukocytosis (WBC 12.16); normal PT/INR; stable electrolytes; normal troponin; normal BNP; normal lipase - CXR negative for pneumonia, per my interpretation - COVID/flu/RSV negative - CT PE negative for PE. Noted to have several segmental atelectasis in both lungs. - Patient given 324 mg PO aspirin and 50 mcg IV fentanyl on arrival. On reassessment, patient still complaining of chest pain. 4 mg IV morphine ordered. Delta troponin also ordered. - HEART score 4 (History +1 moderately suspicious; EKG +0; Age +1; Risk factors +2; Initial troponin +0), amounting to a moderate score. - Discussed results with the patient. Offered discharge versus admission for further cardiac workup. Patient is still having some chest discomfort, and her last heart catheterization was in 2020. Will admit to hospital service for observation and further workup. - Discussion was had with employment evaluator/case manager about patient's case and need for admission - Hospitalist consulted for admission - [facility] ASSESSMENT AND PLAN: Diagnosis: chest pain; shortness of breath Plan: admit Past Med/Surg History Problem List (Updated 10/14/23 @ 23:02 by Kathrin Almanza MD) Shortness of breath (Acute) Chest pain (Acute) Stroke-like symptoms (Acute) Rash (Acute) Headache (Acute) Left sided numbness (Acute) Migraine headache Organic periodic limb movement disorder (Chronic) Nocturnal hypoxemia (Chronic) Alpha thalassemia (Chronic) Sensory polyneuropathy (Chronic) Rosacea (Chronic) Rotator cuff arthropathy of left shoulder (Chronic) had injections, no surgery Hypertension (Chronic) Restless leg syndrome (Chronic) Asthma (Chronic) emergency inhaler Acid reflux (Chronic) Type 2 diabetes mellitus (Chronic) Cervical disc disease (Chronic) Fatty liver (Chronic) Metabolic syndrome (Chronic) Morbid obesity with BMI of 50.0-59.9, adult (Chronic) Chronic cerebral ischemia (Chronic) Severe obstructive sleep apnea (Chronic) BiPap Medical History History of colon polyps Complicated migraine (07/2020) Vitamin D deficiency Surgical History Hx of bilateral salpingectomy Hx of cardiac catheterization (~04/2019) History of esophagogastroduodenoscopy (EGD) History of incision and drainage History of dilatation and curettage History of arthroscopy of right shoulder History of gynecologic surgery History of total bilateral knee replacement (TKR) History of cholecystectomy History of colonoscopy History of tooth extraction History of wisdom tooth extraction Family History Sister Diabetes Uterine cancer Grandmother (Maternal) Diabetes Father Colorectal cancer Family/Other Cardiac disorder Hypertension Cancer Breast cancer Prostate cancer Myocardial infarction Aunt Breast cancer Mother Cervical cancer Diabetes Heart disease Renal failure Brother Myocardial infarction Other No family history of adverse response to anesthesia Social History Smoking Status: Never smoker Second Hand Exposure: No; Do You Dip or Chew Tobacco: No; Hx Alcohol Use: No Hx Substance Use: No Preferred Language: Brazilian Communication Ability: Effective Hearing Ability: Normal Delivery Merchandiser Required: No Beliefs That Will Affect Care: None marital status: marital status details: [place] is Current Living Situation: Spouse current occupational status: retired 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 [employer] Feels Safe at Home: Yes Childhood Exposure to Second-Hand Smoke: No Diet: regular caffeine: Yes Dental Care, Regularly: Yes Physical Activity Frequency: Does not Exercise Seatbelt Use: always Sunscreen Use: Yes Assistive Devices: CPAP Allergies Allergies Allergy/AdvReac Type Severity Reaction Status Date / Time lisinopril AdvReac Intermediate cough Verified 10/14/23 22:18 metronidazole AdvReac Intermediate headache Verified 10/14/23 22:18 erythromycin base AdvReac Mild UPSET Verified 10/14/23 22:18 STOMACH Home Meds Home Medications Medication Instructions Recorded Confirmed cholecalciferol (vitamin D3) 125 250 mcg PO QAM 07/22/20 10/14/23 mcg (5,000 unit) tablet (Vitamin D3) diphenhydramine HCl 50 mg capsule 50 mg PO HS 07/27/20 10/14/23 pimecrolimus 1 % topical cream 1 applic topical BID PRN allergies 08/11/20 10/14/23 atorvastatin 40 mg tablet 40 mg PO QPM 05/07/23 10/14/23 diltiazem HCl 120 mg capsule,24 120 mg PO QAM 05/07/23 10/14/23 hr,extended release furosemide 20 mg tablet 20 mg PO QAM edema 05/07/23 10/14/23 triamcinolone acetonide 0.1 % 1 applic topical BID PRN allergies 05/07/23 10/14/23 topical cream valacyclovir 500 mg tablet 500 mg PO QAM 05/07/23 10/14/23 gabapentin 100 mg capsule 100 mg PO .q afternoon 08/22/23 10/14/23 doxycycline monohydrate 40 mg 40 mg PO DAILY 10/14/23 10/14/23 capsule,immediate - delay release (Oracea) nystatin 100,000 unit/gram topical 1 applic topical TID PRN Skin 10/14/23 10/14/23 powder Irritation vitamin B complex 1 tab PO DAILY 10/14/23 10/14/23 Previous Rx's Medication Instructions Recorded gabapentin 300 mg capsule 600 mg (2 x 300 mg) PO HS #180 caps 01/24/23 metformin 1,000 mg tablet 1,000 mg PO BID #180 tabs 01/24/23 ropinirole 2 mg tablet 4 mg (2 x 2 mg) PO QPM #180 tabs 01/24/23 albuterol sulfate 90 mcg/actuation 2 puff inhalation QID #18 grams 06/25/23 aerosol inhaler (Ventolin HFA) tirzepatide 12.5 mg/0.5 mL 12.5 mg (0.5 mL) subcut Q7D 28 08/07/23 subcutaneous pen injector days #2 mL Interdry (Moisture W[employer]ric #90 ea 08/29/23 with antimicrobial silver) olmesartan 40 mg tablet 40 mg PO DAILY #90 tabs 09/05/23 trazodone 50 mg tablet 50 mg PO HS PRN sleep #90 tabs 09/10/23 meloxicam 15 mg tablet 15 mg PO DAILY PRN pain #30 tabs 09/17/23 Results & Data (ED) Vital Signs Vital Signs - 24 hr 10/14/23 19:39 10/14/23 19:46 10/14/23 19:47 Temperature 36.9 C Temperature Source Temporal Artery Scan Pulse Rate 88 83 Pulse Rate [Apical] Pulse Rate from SpO2 Sensor Pulse Rhythm Respiratory Rate 18 Respiratory Effort / Characteristics Non-Labored Spontaneous Respiratory Depth Normal Respiratory Pattern Regular Blood Pressure 140/75 155/88 H Blood Pressure Mean 96 129 Pulse Oximetry 97 Oxygen Delivery Method Room Air Sepsis Recent Fever Within 48 Hours No Sepsis New/Unexplained Change in Mental Status N/A Sepsis Action Taken by Nursing No Action Required 10/14/23 19:48 10/14/23 19:49 10/14/23 19:56 Temperature Temperature Source Pulse Rate 82 86 Pulse Rate [Apical] Pulse Rate from SpO2 Sensor Pulse Rhythm Regular Respiratory Rate 15 19 Respiratory Effort / Characteristics Respiratory Depth Respiratory Pattern Blood Pressure Blood Pressure Mean Pulse Oximetry 97 99 Oxygen Delivery Method Room Air Room Air Sepsis Recent Fever Within 48 Hours Sepsis New/Unexplained Change in Mental Status Sepsis Action Taken by Nursing 10/14/23 19:56 10/14/23 19:57 10/14/23 20:00 Temperature Temperature Source Pulse Rate 79 80 Pulse Rate [Apical] 80 Pulse Rate from SpO2 Sensor 79 77 Pulse Rhythm Respiratory Rate 19 14 18 Respiratory Effort / Characteristics Non-Labored Spontaneous Respiratory Depth Normal Respiratory Pattern Regular Blood Pressure Blood Pressure Mean Pulse Oximetry 97 94 96 Oxygen Delivery Method Room Air Sepsis Recent Fever Within 48 Hours Sepsis New/Unexplained Change in Mental Status Sepsis Action Taken by Nursing 10/14/23 20:01 10/14/23 20:12 10/14/23 20:21 Temperature Temperature Source Pulse Rate 80 79 Pulse Rate [Apical] Pulse Rate from SpO2 Sensor 80 79 Pulse Rhythm Respiratory Rate 18 17 Respiratory Effort / Characteristics Respiratory Depth Respiratory Pattern Blood Pressure 113/62 Blood Pressure Mean 70 Pulse Oximetry 96 95 Oxygen Delivery Method Sepsis Recent Fever Within 48 Hours Sepsis New/Unexplained Change in Mental Status Sepsis Action Taken by Nursing 10/14/23 20:30 10/14/23 20:36 10/14/23 20:42 Temperature Temperature Source Pulse Rate 78 80 Pulse Rate [Apical] Pulse Rate from SpO2 Sensor 79 80 Pulse Rhythm Respiratory Rate 13 16 Respiratory Effort / Characteristics Respiratory Depth Respiratory Pattern Blood Pressure 136/69 Blood Pressure Mean 87 Pulse Oximetry 97 96 Oxygen Delivery Method Sepsis Recent Fever Within 48 Hours Sepsis New/Unexplained Change in Mental Status Sepsis Action Taken by Nursing 10/14/23 21:00 10/14/23 21:00 10/14/23 21:00 Temperature Temperature Source Pulse Rate 77 Pulse Rate [Apical] Pulse Rate from SpO2 Sensor 76 Pulse Rhythm Respiratory Rate 19 Respiratory Effort / Characteristics Respiratory Depth Respiratory Pattern Blood Pressure 129/65 129/65 Blood Pressure Mean 81 81 Pulse Oximetry 96 Oxygen Delivery Method Sepsis Recent Fever Within 48 Hours Sepsis New/Unexplained Change in Mental Status Sepsis Action Taken by Nursing 10/14/23 21:21 10/14/23 21:39 10/14/23 21:45 Temperature Temperature Source Pulse Rate 75 76 74 Pulse Rate [Apical] Pulse Rate from SpO2 Sensor 75 76 75 Pulse Rhythm Respiratory Rate 16 18 23 Respiratory Effort / Characteristics Respiratory Depth Respiratory Pattern Blood Pressure Blood Pressure Mean Pulse Oximetry 95 99 97 Oxygen Delivery Method Sepsis Recent Fever Within 48 Hours Sepsis New/Unexplained Change in Mental Status Sepsis Action Taken by Nursing 10/14/23 22:00 Temperature Temperature Source Pulse Rate 75 Pulse Rate [Apical] Pulse Rate from SpO2 Sensor 74 Pulse Rhythm Respiratory Rate 13 Respiratory Effort / Characteristics Respiratory Depth Respiratory Pattern Blood Pressure Blood Pressure Mean Pulse Oximetry 98 Oxygen Delivery Method Sepsis Recent Fever Within 48 Hours Sepsis New/Unexplained Change in Mental Status Sepsis Action Taken by Nursing Laboratory Data 10/14/23 20:53 10/14/23 20:53 Lab Results 10/14/23 10/14/23 10/14/23 Range/Units 19:47 19:48 20:53 WBC Cancelled 12.16 H RBC Cancelled 4.43 Hgb Cancelled 11.7 L Hct Cancelled 37.0 MCV Cancelled 83.5 MCH Cancelled 26.4 MCHC Cancelled 31.6 L RDW Std Deviation Cancelled 47.2 H RDW Coeff of Deepak Cancelled 15.4 H Plt Count Cancelled 282 MPV Cancelled 9.2 L Immature Gran % (Auto) Cancelled 0.7 Neut % (Auto) Cancelled 60.4 Lymph % (Auto) Cancelled 28.1 Weakley % (Auto) Cancelled 8.7 Eos % (Auto) Cancelled 1.6 Baso % (Auto) Cancelled 0.5 Neut # (Auto) Cancelled 7.33 H Lymph # (Auto) Cancelled 3.42 H Weakley # (Auto) Cancelled 1.06 H Eos # (Auto) Cancelled 0.20 Baso # (Auto) Cancelled 0.06 Immature Gran # (Auto) Cancelled 0.09 Absolute Nucleated RBC Cancelled Nucleated RBC % (auto) Cancelled Neutrophils % (Manual) Cancelled Band Neutrophils % Cancelled Lymphocytes % (Manual) Cancelled Prolymphocyte % Cancelled Reactive Lymphs % (Man) Cancelled Monocytes % (Manual) Cancelled Eosinophils % (Manual) Cancelled Basophils % (Manual) Cancelled Metamyelocytes % (Man) Cancelled Myelocytes % (Man) Cancelled Promyelocytes % (Man) Cancelled Blast Cells % (Manual) Cancelled Plasma Cell % (Manual) Cancelled Other Cells % Cancelled Nucleated RBC % Cancelled Neutrophils # (Manual) Cancelled Band Neutrophils # Cancelled Total Absolute Neuts Cancelled Lymphocytes # (Manual) Cancelled Prolymphocyte # Cancelled Reactive Lymphs # Cancelled Total Abs Lymphocytes Cancelled Monocytes # (Manual) Cancelled Eosinophils # (Manual) Cancelled Basophils # (Manual) Cancelled Metamyelocytes # (Man) Cancelled Myelocytes # (Manual) Cancelled Promyelocytes # (Man) Cancelled Blast Cells # (Man) Cancelled Plasma Cell # (Manual) Cancelled Other Cells # Cancelled Nucleated RBCs # (Man) Cancelled Hypersegmented Neuts Cancelled Hyposegmented Neuts Cancelled Hypogranular Neuts Cancelled Large Granular Lymphs Cancelled # Lrg Granular Lymphs Cancelled Hairy Cells Cancelled Smudge Cells Cancelled Toxic Granulation Cancelled Toxic Vacuolation Cancelled Dohle Bodies Cancelled Luis Rods Cancelled Platelet Estimate Cancelled Hypogranular Platelets Cancelled Giant Platelets Cancelled Platelet Satelliting Cancelled RBC Morphology Cancelled Polychromasia Cancelled Hypochromasia Cancelled Poikilocytosis Cancelled Basophilic Stippling Cancelled Anisocytosis Cancelled Microcytosis Cancelled Macrocytosis Cancelled Spherocytes Cancelled Pappenheimer Bodies Cancelled Sickle Cells Cancelled Target Cells Cancelled Tear Drop Cells Cancelled Ovalocytes Cancelled Stomatocytes Cancelled Eduardo-Duarte Bodies Cancelled Echinocytes Cancelled Acanthocytes (Spur) Cancelled Rouleaux Cancelled RBC Agglutinates Cancelled Schistocytes Cancelled Sezary Cell Cancelled PT 10.3 (9.0-12.0) Seconds INR 0.9 (0.9-1.1) Sodium 134 L (136-145) mmol/L Potassium TNP 4.1 Chloride 101 (98-107) mmol/L Carbon Dioxide 22 (21-32) mmol/L Anion Gap 11 (3-11) BUN 24 H (6-23) mg/dl Creatinine 0.78 (0.6-1.2) mg/dl Est Cr Clr Drug Dosing 105.3 ml/min Est GFR ( Amer) 97.1 ml/min Est GFR (Non-Af Amer) 83.8 ml/min BUN/Creatinine Ratio 30.8 H (10-20) Glucose 116 H (70-99(Fasting)) mg/dl Calcium 9.5 (8.6-10.3) mg/dl Total Bilirubin 0.6 (0.2-1.0) mg/dl AST TNP 21 ALT 31 (7-52) U/L Alkaline Phosphatase 81 (34-104) U/L Troponin I High Sens 4.0 (0-14) pg/ml B-Natriuretic Peptide 35 (0-100) pg/ml Total Protein 7.5 (6.0-8.3) gm/dl Albumin 4.4 (3.4-5.0) gm/dl Globulin 3.1 (2.5-4.0) gm/dl Albumin/Globulin Ratio 1.4 (0.9-2) Lipase 37 (11-82) U/L SARS-CoV-2 (PCR) NEGATIVE (Negative) Influenza Type A (PCR) Negative (Neg) Influenza Type B (PCR) Negative (Neg) RSV (RT-PCR) Negative (Neg) Blood Parasites ID Cancelled Administered Medications Discontinued Medications Aspirin (Aspirin Chew 324 Mg) 324 mg PO NOW STA Stop: 10/14/23 20:37 Last Admin: 10/14/23 20:55 Dose: 324 mg Documented By: EILEEN Fentanyl Citrate (Fentanyl Citrate Pf 100 Mcg/2 Ml Vial) 50 mcg IV NOW STA Stop: 10/14/23 20:37 Last Admin: 10/14/23 20:55 Dose: 50 mcg Documented By: EILEEN Ioversol (Optiray 320 125ml) 118 ml IV ONCE ONE Stop: 10/14/23 22:08 Last Admin: 10/14/23 22:08 Dose: 118 ml Documented By: SUZANNE Discharge Plan Visit Data Chief Complaint: Cardiac Assessment Stated Complaint: CHEST PAIN, SOB, HYPOTENTION ED Provider: Kathrin Almanza Discharge Problem: Chest pain, Shortness of breath Forms Stand Alone Forms: My [facility] Prescriptions Prescriptions: No Action albuterol sulfate [Ventolin HFA] 90 mcg/actuation HFA aerosol inhaler 2 puff inhalation QID Qty: 18 2RF trazodone 50 mg tablet 50 mg PO HS PRN (Reason: sleep) Qty: 90 1RF meloxicam 15 mg tablet 15 mg PO DAILY PRN (Reason: pain) Qty: 30 1RF gabapentin 300 mg capsule 600 mg PO HS Qty: 180 3RF metformin 1,000 mg tablet 1,000 mg PO BID Qty: 180 3RF ropinirole 2 mg tablet 4 mg PO QPM Qty: 180 3RF pimecrolimus 1 % cream 1 applic topical BID PRN (Reason: allergies) diphenhydramine HCl 50 mg capsule 50 mg PO HS tirzepatide 12.5 mg/0.5 mL pen injector 12.5 mg subcut Q7D 28 Days Qty: 2 2RF Rx Instructions: PER PT "CAN'T GET FROM PHARMACY" olmesartan 40 mg tablet 40 mg PO DAILY Qty: 90 3RF (DME) Interdry (Moisture Wicking Fabric with antimicrobial silver) See Rx Instructions .Route .MEDSUPPLY Qty: 90 0RF Rx Instructions: Apply to skin folds to reduce friction, relieve redness, prevent bacterial/fungal growth. Apply clean dressing up to three times daily. cholecalciferol (vitamin D3) [Vitamin D3] 125 mcg (5,000 unit) Tablet 250 mcg PO QAM atorvastatin 40 mg tablet 40 mg PO QPM valacyclovir 500 mg tablet 500 mg PO QAM triamcinolone acetonide 0.1 % cream 1 applic topical BID PRN (Reason: allergies) Rx Instructions: Apply to areas of the trunk and extremities twice daily x 2 weeks as directed. diltiazem HCl 120 mg capsule,extended release 24 hr 120 mg PO QAM furosemide 20 mg tablet 20 mg PO QAM gabapentin 100 mg capsule 100 mg PO .q afternoon vitamin B complex Tablet 1 tab PO DAILY nystatin 100,000 unit/gram powder 1 applic topical TID PRN (Reason: Skin Irritation) doxycycline monohydrate [Oracea] 40 mg capsule,IR - delay rel,biphase 40 mg PO DAILY Rx Instructions: TAKE 1 CAPSULE BY MOUTH EVERY DAY Referrals Referrals: Korina Carr MD [Primary Care Provider] -
[2023-10-14] MEDS: OPTIRAY 320 125ml IV ONE (22:08)
[2023-10-14 22:17] LABS: Albumin Globulin Ratio 1.4 (0.9-2); Globulin 3.1 gm/dl (2.5-4.0); Total Protein 7.5 gm/dl (6.0-8.3)
--- NOTE | 2023-10-14 23:13 | CT Scan Report ---
Exam(s): CTA CHEST IV Amt: 118ml EXAM: CT Angiography Chest With Intravenous Contrast CLINICAL HISTORY: Reason for exam: PE. TECHNIQUE: Axial computed tomographic angiography images of the chest with intravenous contrast. CTDI is 28 mGy and DLP is 922 mGy-cm. Automated exposure control was utilized for the study. A dose lowering technique was utilized adhering to the principles of ALARA. MIP reconstructed images were created and reviewed. COMPARISON: December 30, 2016 FINDINGS: Pulmonary arteries: The pulmonary arterial tree is well opacified with contrast. No pulmonary embolism is identified. Aorta: The thoracic aorta is slightly calcified but nondilated. There is no aneurysm or dissection. Lungs: Small amount of scattered subsegmental atelectasis in both lung bases. No acute appearing infiltrate, pneumothorax, or pleural effusion is seen. No mass. Pleural space: See above. Heart: Mild cardiomegaly with mild mitral calcification. No pericardial effusion. No evidence of RV dysfunction. Bones/joints: Mild degenerative changes throughout the spine. No acute fracture or destructive bone lesion is identified. No dislocation. Soft tissues: Unremarkable. Lymph nodes: Unremarkable. No enlarged lymph nodes. Adrenals: 1.6 cm right adrenal adenoma. No follow-up is required. IMPRESSION: 1. Small amount of scattered subsegmental atelectasis in both lung bases. No acute appearing infiltrate, pneumothorax, or pleural effusion is seen. 2. The pulmonary arterial tree is well opacified with contrast. No pulmonary embolism is identified. 3. The thoracic aorta is slightly calcified but nondilated. There is no aneurysm or dissection. Electronically signed by: Aaron Taylor MD 10/14/23 23:12 PM
[2023-10-14] MEDS: MoRPHine SULFATE 4 MG/ML 1 ML CARP\\VIAL IV STA (23:15)
[2023-10-14] MEDS: rOPINIRole HCL 2 MG TABLET PO ONE (23:15)
[2023-10-14] MEDS: GABAPENTIN 600 MG TAB PO STA (23:15)
[2023-10-15] MEDS: MELOXICAM 7.5 MG TAB PO STA (00:22)
[2023-10-15] MEDS: traZODone HCL 50 MG TAB PO STA (00:22)
--- NOTE | 2023-10-15 00:23 | History & Physical Report ---
Date of Service October 15, 2023 Assessment & Plan (1) Asthma exacerbation: (2) Shortness of breath: (3) Migraine headache: (4) Organic periodic limb movement disorder: (5) Hypertension: (6) Restless leg syndrome: (7) Type 2 diabetes mellitus: (8) Severe obstructive sleep apnea: (9) Obesity hypoventilation syndrome: Plan Shortness of breath/atypical chest pain/hypertension/edema- Will admit for cardiac workup, likely having an asthma exacerbation The patient will be admitted to telemetry for serial cardiac enzymes, serial EKG's, cardiac rhythm monitoring and a 2-D echocardiogram with Dopplers. Continue diltiazem, telmisartan Asthma exacerbation/obesity hypoventilation syndrome/severe RADHA- Methylprednisolone 40 mg IV every 12 hours Albuterol HFA 2 puffs 4 times daily as needed CPAP at bedtime if needed Diabetes mellitus- Hold metformin On tirzepatide as an outpatient Placed on Accu-Cheks with NovoLog SSI Peripheral sensory neuropathy/RLS- Continue gabapentin, trazodone and ropinirole History of Present Illness Chief Complaint: The patient presents to the emergency department with vague chest pain, shortness of breath and dyspnea on exertion over the past few days. She has been doing additional packing to go on vacation to the beach, family noted that she was more short of breath, and encouraged her to come to the emergency department for assessment. Primary Care Provider: Korina Carr MD The patient is a 58-year-old female with a past medical history including migraine headache, organic periodic limb movement disorder, alpha thalassemia, sensory polyneuropathy, RLS, hypertension, asthma, diabetes mellitus, metabolic syndrome, morbid obesity, chronic cerebral ischemia and severe obstructive sleep apnea. She presents to the emergency department with a few days of shortness of breath and today has noted more dyspnea on exertion. She does not usually use her inhaler, but she did try today without much benefit, and decided to come to the ED for assessment. She reports that she did have a brief episode of lightheadedness, that was relieved by rest, but did not feel like she was going to pass out Allergies Allergy/AdvReac Type Severity Reaction Status Date / Time lisinopril AdvReac Intermediate cough Verified 10/14/23 22:18 metronidazole AdvReac Intermediate headache Verified 10/14/23 22:18 erythromycin base AdvReac Mild UPSET Verified 10/14/23 22:18 STOMACH Home Medications Medication Instructions Recorded Confirmed Type cholecalciferol (vitamin D3) 125 250 mcg PO QAM 07/22/20 10/14/23 History mcg (5,000 unit) tablet (Vitamin D3) diphenhydramine HCl 50 mg capsule 50 mg PO HS 07/27/20 10/14/23 History pimecrolimus 1 % topical cream 1 applic topical BID PRN allergies 08/11/20 10/14/23 History gabapentin 300 mg capsule 600 mg (2 x 300 mg) PO HS #180 caps 01/24/23 10/14/23 Rx metformin 1,000 mg tablet 1,000 mg PO BID #180 tabs 01/24/23 10/14/23 Rx ropinirole 2 mg tablet 4 mg (2 x 2 mg) PO QPM #180 tabs 01/24/23 10/14/23 Rx atorvastatin 40 mg tablet 40 mg PO QPM 05/07/23 10/14/23 History diltiazem HCl 120 mg capsule,24 120 mg PO QAM 05/07/23 10/14/23 History hr,extended release furosemide 20 mg tablet 20 mg PO QAM edema 05/07/23 10/14/23 History triamcinolone acetonide 0.1 % 1 applic topical BID PRN allergies 05/07/23 10/14/23 History topical cream valacyclovir 500 mg tablet 500 mg PO QAM 05/07/23 10/14/23 History albuterol sulfate 90 mcg/actuation 2 puff inhalation QID #18 grams 06/25/23 10/14/23 Rx aerosol inhaler (Ventolin HFA) tirzepatide 12.5 mg/0.5 mL 12.5 mg (0.5 mL) subcut Q7D 28 08/07/23 10/14/23 Rx subcutaneous pen injector days #2 mL gabapentin 100 mg capsule 100 mg PO .q afternoon 08/22/23 10/14/23 History Interdry (Moisture [place] #90 ea 08/29/23 10/02/23 Rx with antimicrobial silver) olmesartan 40 mg tablet 40 mg PO DAILY #90 tabs 09/05/23 10/14/23 Rx trazodone 50 mg tablet 50 mg PO HS PRN sleep #90 tabs 09/10/23 10/14/23 Rx meloxicam 15 mg tablet 15 mg PO DAILY PRN pain #30 tabs 09/17/23 10/14/23 Rx doxycycline monohydrate 40 mg 40 mg PO DAILY 10/14/23 10/14/23 History capsule,immediate - delay release (Oracea) nystatin 100,000 unit/gram topical 1 applic topical TID PRN Skin 10/14/23 10/14/23 History powder Irritation vitamin B complex 1 tab PO DAILY 10/14/23 10/14/23 History Past Med/Surg History Problem List (Updated 10/15/23 @ 05:16 by Jakob Lindsay MD) Obesity hypoventilation syndrome Asthma exacerbation Shortness of breath (Acute) Chest pain (Acute) Stroke-like symptoms (Acute) Rash (Acute) Headache (Acute) Left sided numbness (Acute) Migraine headache Organic periodic limb movement disorder (Chronic) Nocturnal hypoxemia (Chronic) Alpha thalassemia (Chronic) Sensory polyneuropathy (Chronic) Rosacea (Chronic) Rotator cuff arthropathy of left shoulder (Chronic) had injections, no surgery Hypertension (Chronic) Restless leg syndrome (Chronic) Asthma (Chronic) emergency inhaler Acid reflux (Chronic) Type 2 diabetes mellitus (Chronic) Cervical disc disease (Chronic) Fatty liver (Chronic) Metabolic syndrome (Chronic) Morbid obesity with BMI of 50.0-59.9, adult (Chronic) Chronic cerebral ischemia (Chronic) Severe obstructive sleep apnea (Chronic) BiPap Medical History History of colon polyps Complicated migraine (07/2020) Vitamin D deficiency Surgical History Hx of bilateral salpingectomy Hx of cardiac catheterization (~04/2019) History of esophagogastroduodenoscopy (EGD) History of incision and drainage History of dilatation and curettage History of arthroscopy of right shoulder History of gynecologic surgery History of total bilateral knee replacement (TKR) History of cholecystectomy History of colonoscopy History of tooth extraction History of wisdom tooth extraction Family History Sister Diabetes Uterine cancer Grandmother (Maternal) Diabetes Father Colorectal cancer Family/Other Cardiac disorder Hypertension Cancer Breast cancer Prostate cancer Myocardial infarction Aunt Breast cancer Mother Cervical cancer Diabetes Heart disease Renal failure Brother Myocardial infarction Other No family history of adverse response to anesthesia Social History Smoking Status: Never smoker Second Hand Exposure: No; Do You Dip or Chew Tobacco: No; Tobacco Cessation Education Requested by Patient: No Hx Alcohol Use: No Hx Substance Use: No Preferred Language: Danish Communication Ability: Effective Hearing Ability: Normal Animal Handler Required: No Beliefs That Will Affect Care: None marital status: marital status details: [place] is Current Living Situation: Spouse current occupational status: retired 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 [employer] Other Information That Helps Us Care for You: No Feels Safe at Home: Yes Safety Concerns: Feels Safe At This Time Childhood Exposure to Second-Hand Smoke: No Diet: regular caffeine: Yes Dental Care, Regularly: Yes Physical Activity Frequency: Does not Exercise Seatbelt Use: always Sunscreen Use: Yes Assistive Devices: BiPap and Glasses Review of Systems Review of Systems: The patient denies palpitations, cough, lower extremity swelling, sore throat, fevers, chills, sweats, nausea, vomiting, diarrhea , constipation, abdominal pain, pelvic pain, blood in urine or stool, dysuria, urinary frequency or urgency, memory loss, loss of consciousness, rash, abnormal bruising or bleeding, imbalance, focal or generalized weakness, numbness or tingling in arms or legs, generalized arthralgias or myalgias, back or neck pain, or night sweats. The review of systems is otherwise negative other than for that already noted above, and at least 10 systems have been reviewed. Physical Exam Physical Exam: The patient is awake, alert and oriented 3, well developed and well nourished, normocephalic and atraumatic, lying in bed and in no acute distress. HEENT--PERRL, EOMI, mucous membranes and oropharynx mildly dry. Neck--supple. No JVD. No bruits. Thyroid normal, trachea midline, no adenopathy. Heart--normal S1 and S2. No murmurs, rubs or gallops. Lungs--clear bilaterally. No respiratory distress, no accessory muscle use. Abdomen--normal bowel sounds and soft. Nontender. Nondistended. Morbidly obese Extremities--no cyanosis or clubbing. No edema. There are good distal pulses b/l. Dermatologic--normal skin turgor, normal color, no abnormal lymph nodes, no rash. Neurologic--cranial nerves II through XII grossly intact. Rheumatologic--normal range of motion. Psychiatric--normal affect. Results & Data Results & Data Vital Signs (Past 12 Hours) Vital Signs Temp Pulse Pulse Resp BP BP Pulse Ox 10/14/23 23:50 80 10/14/23 23:00 78 21 129/70 96 10/14/23 22:00 75 13 98 10/14/23 21:45 74 23 97 10/14/23 21:39 76 18 99 10/14/23 21:21 75 16 95 10/14/23 21:00 77 19 96 10/14/23 21:00 129/65 10/14/23 21:00 129/65 10/14/23 20:42 80 16 96 10/14/23 20:36 78 13 97 10/14/23 20:30 136/69 10/14/23 20:21 79 17 95 10/14/23 20:12 80 18 96 10/14/23 20:01 113/62 10/14/23 20:00 80 18 96 10/14/23 19:57 79 14 94 10/14/23 19:56 80 19 97 10/14/23 19:56 99 10/14/23 19:49 86 19 97 10/14/23 19:48 82 15 10/14/23 19:47 83 10/14/23 19:46 155/88 H 10/14/23 19:39 36.9 C 88 18 140/75 97 O2 Del Method 10/14/23 23:50 10/14/23 23:00 Room Air 10/14/23 22:00 10/14/23 21:45 10/14/23 21:39 10/14/23 21:21 10/14/23 21:00 10/14/23 21:00 10/14/23 21:00 10/14/23 20:42 10/14/23 20:36 10/14/23 20:30 10/14/23 20:21 10/14/23 20:12 10/14/23 20:01 10/14/23 20:00 10/14/23 19:57 10/14/23 19:56 Room Air 10/14/23 19:56 Room Air 10/14/23 19:49 Room Air 10/14/23 19:48 10/14/23 19:47 10/14/23 19:46 10/14/23 19:39 Room Air Laboratory Results Laboratory Results WBC 12.16 K/ul (4.8-10.8) H 10/14/23 20:53 RBC 4.43 M/uL (4.20-5.40) 10/14/23 20:53 Hgb 11.7 g/dl (12.0-16.0) L 10/14/23 20:53 Hct 37.0 % (37.0-47.0) 10/14/23 20:53 MCV 83.5 fL (80.0-100.0) 10/14/23 20:53 MCH 26.4 pg (25.0-34.0) 10/14/23 20:53 MCHC 31.6 g/dL (32.0-36.0) L 10/14/23 20:53 RDW Std Deviation 47.2 fL (36.4-46.3) H 10/14/23 20:53 RDW Coeff of Deepak 15.4 % (11.5-14.5) H 10/14/23 20:53 Plt Count 282 K/uL (130-400) 10/14/23 20:53 MPV 9.2 fL (9.4-12.4) L 10/14/23 20:53 Immature Gran % (Auto) 0.7 % 10/14/23 20:53 Neut % (Auto) 60.4 % 10/14/23 20:53 Lymph % (Auto) 28.1 % 10/14/23 20:53 Caldwell % (Auto) 8.7 % 10/14/23 20:53 Eos % (Auto) 1.6 % 10/14/23 20:53 Baso % (Auto) 0.5 % 10/14/23 20:53 Neut # (Auto) 7.33 K/uL (1.40-6.50) H 10/14/23 20:53 Lymph # (Auto) 3.42 K/uL (1.20-3.40) H 10/14/23 20:53 Caldwell # (Auto) 1.06 K/uL (0.11-0.59) H 10/14/23 20:53 Eos # (Auto) 0.20 K/uL (0.00-0.50) 10/14/23 20:53 Baso # (Auto) 0.06 K/uL (0.00-0.20) 10/14/23 20:53 Immature Gran # (Auto) 0.09 K/uL (0.01-0.20) 10/14/23 20:53 Absolute Nucleated RBC Cancelled 10/14/23 19:48 Nucleated RBC % (auto) Cancelled 10/14/23 19:48 Neutrophils % (Manual) Cancelled 10/14/23 19:48 Band Neutrophils % Cancelled 10/14/23 19:48 Lymphocytes % (Manual) Cancelled 10/14/23 19:48 Prolymphocyte % Cancelled 10/14/23 19:48 Reactive Lymphs % (Man) Cancelled 10/14/23 19:48 Monocytes % (Manual) Cancelled 10/14/23 19:48 Eosinophils % (Manual) Cancelled 10/14/23 19:48 Basophils % (Manual) Cancelled 10/14/23 19:48 Metamyelocytes % (Man) Cancelled 10/14/23 19:48 Myelocytes % (Man) Cancelled 10/14/23 19:48 Promyelocytes % (Man) Cancelled 10/14/23 19:48 Blast Cells % (Manual) Cancelled 10/14/23 19:48 Plasma Cell % (Manual) Cancelled 10/14/23 19:48 Other Cells % Cancelled 10/14/23 19:48 Nucleated RBC % Cancelled 10/14/23 19:48 Neutrophils # (Manual) Cancelled 10/14/23 19:48 Band Neutrophils # Cancelled 10/14/23 19:48 Total Absolute Neuts Cancelled 10/14/23 19:48 Lymphocytes # (Manual) Cancelled 10/14/23 19:48 Prolymphocyte # Cancelled 10/14/23 19:48 Reactive Lymphs # Cancelled 10/14/23 19:48 Total Abs Lymphocytes Cancelled 10/14/23 19:48 Monocytes # (Manual) Cancelled 10/14/23 19:48 Eosinophils # (Manual) Cancelled 10/14/23 19:48 Basophils # (Manual) Cancelled 10/14/23 19:48 Metamyelocytes # (Man) Cancelled 10/14/23 19:48 Myelocytes # (Manual) Cancelled 10/14/23 19:48 Promyelocytes # (Man) Cancelled 10/14/23 19:48 Blast Cells # (Man) Cancelled 10/14/23 19:48 Plasma Cell # (Manual) Cancelled 10/14/23 19:48 Other Cells # Cancelled 10/14/23 19:48 Nucleated RBCs # (Man) Cancelled 10/14/23 19:48 Hypersegmented Neuts Cancelled 10/14/23 19:48 Hyposegmented Neuts Cancelled 10/14/23 19:48 Hypogranular Neuts Cancelled 10/14/23 19:48 Large Granular Lymphs Cancelled 10/14/23 19:48 # Lrg Granular Lymphs Cancelled 10/14/23 19:48 Hairy Cells Cancelled 10/14/23 19:48 Smudge Cells Cancelled 10/14/23 19:48 Toxic Granulation Cancelled 10/14/23 19:48 Toxic Vacuolation Cancelled 10/14/23 19:48 Dohle Bodies Cancelled 10/14/23 19:48 Luis Rods Cancelled 10/14/23 19:48 Platelet Estimate Cancelled 10/14/23 19:48 Hypogranular Platelets Cancelled 10/14/23 19:48 Giant Platelets Cancelled 10/14/23 19:48 Platelet Satelliting Cancelled 10/14/23 19:48 RBC Morphology Cancelled 10/14/23 19:48 Polychromasia Cancelled 10/14/23 19:48 Hypochromasia Cancelled 10/14/23 19:48 Poikilocytosis Cancelled 10/14/23 19:48 Basophilic Stippling Cancelled 10/14/23 19:48 Anisocytosis Cancelled 10/14/23 19:48 Microcytosis Cancelled 10/14/23 19:48 Macrocytosis Cancelled 10/14/23 19:48 Spherocytes Cancelled 10/14/23 19:48 Pappenheimer Bodies Cancelled 10/14/23 19:48 Sickle Cells Cancelled 10/14/23 19:48 Target Cells Cancelled 10/14/23 19:48 Tear Drop Cells Cancelled 10/14/23 19:48 Ovalocytes Cancelled 10/14/23 19:48 Stomatocytes Cancelled 10/14/23 19:48 [place] Bodies Cancelled 10/14/23 19:48 Echinocytes Cancelled 10/14/23 19:48 Acanthocytes (Spur) Cancelled 10/14/23 19:48 Rouleaux Cancelled 10/14/23 19:48 RBC Agglutinates Cancelled 10/14/23 19:48 Schistocytes Cancelled 10/14/23 19:48 Sezary Cell Cancelled 10/14/23 19:48 PT 10.3 Seconds (9.0-12.0) 10/14/23 19:48 INR 0.9 (0.9-1.1) 10/14/23 19:48 Sodium 134 mmol/L (136-145) L 10/14/23 19:48 Potassium 4.1 mmol/L (3.5-5.1) 10/14/23 20:53 Chloride 101 mmol/L (98-107) 10/14/23 19:48 Carbon Dioxide 22 mmol/L (21-32) 10/14/23 19:48 Anion Gap 11 (3-11) 10/14/23 19:48 BUN 24 mg/dl (6-23) H 10/14/23 19:48 Creatinine 0.78 mg/dl (0.6-1.2) 10/14/23 19:48 Est Cr Clr Drug Dosing 105.3 ml/min 10/14/23 19:48 Est GFR ( Amer) 97.1 ml/min 10/14/23 19:48 Est GFR (Non-Af Amer) 83.8 ml/min 10/14/23 19:48 BUN/Creatinine Ratio 30.8 (10-20) H 10/14/23 19:48 Glucose 116 mg/dl (70-99(Fasting)) H 10/14/23 19:48 Calcium 9.5 mg/dl (8.6-10.3) 10/14/23 19:48 Total Bilirubin 0.6 mg/dl (0.2-1.0) 10/14/23 19:48 AST 21 U/L (13-39) 10/14/23 20:53 ALT 31 U/L (7-52) 10/14/23 19:48 Alkaline Phosphatase 81 U/L (34-104) 10/14/23 19:48 Troponin I High Sens 3.8 pg/ml (0-14) 10/14/23 23:34 B-Natriuretic Peptide 35 pg/ml (0-100) 10/14/23 19:48 Total Protein 7.5 gm/dl (6.0-8.3) 10/14/23 19:48 Albumin 4.4 gm/dl (3.4-5.0) 10/14/23 19:48 Globulin 3.1 gm/dl (2.5-4.0) 10/14/23 19:48 Albumin/Globulin Ratio 1.4 (0.9-2) 10/14/23 19:48 Lipase 37 U/L (11-82) 10/14/23 19:48 SARS-CoV-2 (PCR) NEGATIVE (Negative) 10/14/23 19:47 Influenza Type A (PCR) Negative (Neg) 10/14/23 19:47 Influenza Type B (PCR) Negative (Neg) 10/14/23 19:47 RSV (RT-PCR) Negative (Neg) 10/14/23 19:47 Blood Parasites ID Cancelled 10/14/23 19:48 Impressions Chest CTA 10/14/23 20:36 Exam(s): CTA CHEST IV Amt: 118ml EXAM: CT Angiography Chest With Intravenous Contrast CLINICAL HISTORY: Reason for exam: PE. TECHNIQUE: Axial computed tomographic angiography images of the chest with intravenous contrast. CTDI is 28 mGy and DLP is 922 mGy-cm. Automated exposure control was utilized for the study. A dose lowering technique was utilized adhering to the principles of ALARA. MIP reconstructed images were created and reviewed. COMPARISON: December 30, 2016 FINDINGS: Pulmonary arteries: The pulmonary arterial tree is well opacified with contrast. No pulmonary embolism is identified. Aorta: The thoracic aorta is slightly calcified but nondilated. There is no aneurysm or dissection. Lungs: Small amount of scattered subsegmental atelectasis in both lung bases. No acute appearing infiltrate, pneumothorax, or pleural effusion is seen. No mass. Pleural space: See above. Heart: Mild cardiomegaly with mild mitral calcification. No pericardial effusion. No evidence of RV dysfunction. Bones/joints: Mild degenerative changes throughout the spine. No acute fracture or destructive bone lesion is identified. No dislocation. Soft tissues: Unremarkable. Lymph nodes: Unremarkable. No enlarged lymph nodes. Adrenals: 1.6 cm right adrenal adenoma. No follow-up is required. IMPRESSION: 1. Small amount of scattered subsegmental atelectasis in both lung bases. No acute appearing infiltrate, pneumothorax, or pleural effusion is seen. 2. The pulmonary arterial tree is well opacified with contrast. No pulmonary embolism is identified. 3. The thoracic aorta is slightly calcified but nondilated. There is no aneurysm or dissection. Electronically signed by: Aaron Taylor MD 10/14/23 23:12 PM Code Status & VTE Plan Code Status Full code VTE Prophylaxis Plan VTE Prophylaxis will be ordered: Yes PG Care Time/CCT Total # of Minutes Spent Total Time Spent with Patient: Total time spent is greater than 50% in coordination of care (as documented) at patient's floor/unit and/or counseling patient: Coding Level of Care Code 69161 INT INP/OBS CARE 3/75MIN Diagnoses Asthma exacerbation J45.901 Shortness of breath R06.02 Migraine headache G43.909 Organic periodic limb movement disorder G47.61 Essential hypertension I10 Hypertension type: essential hypertension Restless leg syndrome G25.81 Type 2 diabetes mellitus without complication, with long-term current use of insulin E11.9; Z79.4 Diabetes mellitus intermediate manager insulin use: with intermediate manager use Diabetes mellitus complication status: without complication Severe obstructive sleep apnea G47.33 Obesity hypoventilation syndrome E66.2 (5) Hypertension Hypertension type: essential hypertension Qualified Code(s): I10 - Essential (primary) hypertension (7) Type 2 diabetes mellitus Diabetes mellitus senior care insulin use: with senior care use Diabetes mellitus complication status: without complication Qualified Code(s): E11.9 - Type 2 diabetes mellitus without complications; Z79.4 - residential (current) use of insulin
[2023-10-15] MEDS ORDERED: TRIAMCINOLONE ACET 0.1% CR 15 GM TUBE TOP PRN (01:25)
[2023-10-15] MEDS ORDERED: GLUCAGON FOR INJ 1 MG VIAL SQ PRN (01:25)
[2023-10-15] MEDS ORDERED: DEXTROSE 50% 50 ML SYRINGE IV PRN (01:25)
[2023-10-15] MEDS ORDERED: ONDANSETRON INJ 2 MG/ML 2 ML VIAL IV PRN (01:25)
[2023-10-15] MEDS ORDERED: GLUCOSE 40% GEL 15 GM TUBE PO PRN (01:25)
[2023-10-15] MEDS ORDERED: NYSTATIN POWDER 15GM BTL EXT PRN (01:25)
[2023-10-15] MEDS ORDERED: CARBOHYDRATES FOR HYPOGLYCEMIA PO PRN (01:25)
[2023-10-15] MEDS ORDERED: NITROGLYCERIN SL 0.4 MG/TAB TAB SL PRN (01:25)
[2023-10-15] MEDS ORDERED: GLUCOSE 10 TAB/TUBE PO PRN (01:25)
[2023-10-15] MEDS ORDERED: ALBUTEROL HFA 8 GM INHALER INH PRN (01:42)
[2023-10-15] MEDS ORDERED: methylPREDNISolone 1000 MG/16 ML IV SCH (05:15)
[2023-10-15] MEDS: methylPREDNISolone 40 MG in SYRINGE 0 ML IV SCH (05:39)
[2023-10-15 06:08] LABS: Basophils # (auto) 0.06 K/uL (0.00-0.20); Basophils % (auto) 0.6 %; Eosinophils # (auto) 0.19 K/uL (0.00-0.50); Hematocrit (blood only) 39.1 % (37.0-47.0); Hemoglobin 12.3 g/dl (12.0-16.0); Immature Granulocytes # (auto) 0.05 K/uL (0.01-0.20); Immature Granulocytes % (auto) 0.5 %; Lymphocytes # (auto) 3.52 K/uL (1.20-3.40); Lymphocytes % (auto) 37.7 %; Mean Corpuscular Hemoglobin 26.4 pg (25.0-34.0); Mean Corpuscular Hgb Conc 31.5 g/dL (32.0-36.0); Mean Corpuscular Volume 83.9 fL (80.0-100.0); Mean Platelet Volume 9.8 fL (9.4-12.4); Monocytes # (auto) 0.73 K/uL (0.11-0.59); Monocytes % (auto) 7.8 %; Neutrophils # (auto) 4.79 K/uL (1.40-6.50); Neutrophils % (auto) 51.4 %; Platelet Count 281 K/uL (130-400); RDW Coefficient of Variation 15.5 % (11.5-14.5); RDW Standard Deviation 46.6 fL (36.4-46.3); Red Blood Count 4.66 M/uL (4.20-5.40); White Blood Count 9.34 K/ul (4.8-10.8)
[2023-10-15 06:12] LABS: Albumin Level 4.2 gm/dl (3.4-5.0); Calcium 9.1 mg/dl (8.6-10.3); Potassium 3.9 mmol/L (3.5-5.1)
[2023-10-15 06:18] LABS: Chol HDL Ratio 3.3 (0-5); Est GFR (African American) 117.8 ml/min; Est GFR (Non-African American) 101.6 ml/min; Phosphorus 5.3 mg/dl (2.5-4.9)
[2023-10-15 06:41] LABS: Troponin I High Sensitivity 2.7 pg/ml (0-14)
[2023-10-15 07:24] LABS: Estimated Average Glucose 123 mg/dl; Hemoglobin A1C 5.9 % (4.5-5.6)
[2023-10-15 07:27] LABS: Estimated Average Glucose 123 mg/dl; Hemoglobin A1C 5.9 % (4.5-5.6)
[2023-10-15] MEDS: CHOLECALCIFEROL 125 MCG (5,000 UNITS) TAB PO SCH (07:29)
[2023-10-15] MEDS: ASPIRIN 81 MG ECTAB PO SCH (07:29)
[2023-10-15] MEDS: LOSARTAN POTASSIUM 50 MG TAB PO SCH (07:29)
[2023-10-15] MEDS: valACYclovir HCL 500 MG TABLET PO SCH (07:30)
[2023-10-15] MEDS: dilTIAZem HCL 120 MG CAPCR PO SCH (07:31)
[2023-10-15] MEDS: NON-FORMULARY MEDICATION (Vitamin B Complex Tablet) PO SCH (07:32)
--- NOTE | 2023-10-15 08:29 | XRay Report ---
XR chest 1V portable HISTORY: Chest pain, nonspecific COMPARISON: Chest 01/20/2022. FINDINGS: The lungs are clear. Cardiac silhouette is normal in size. No pleural effusions. No pneumot horax. IMPRESSION: No acute process. ACT 112: Negative or not required by law. Electronically signed by: Da Yao M.D. 10/15/2023 8:28 AM
[2023-10-15] MEDS: INSULIN ASPART PER UNIT CHARGE SC SCH (08:42)
--- NOTE | 2023-10-15 12:11 | Hospitalist Progress Note ---
Date of Service October 15, 2023 Assessment & Plan (1) Asthma exacerbation: Plan: Patient presented to the ED on 10/13 with complaints of shortness of breath and chest pain. -suspect due to asthma exacerbation -Troponin negative x 2 -BNP WNL at 35 -CBC/BMP reviewed 10/14: stable -Chest CTA negative -Chest X-ray negative -EKG reveals sinus rhythm -Echo pending -Methylprednisolone 40mg IV q 12h -Albuterol HFA 2puffs times daily prn -CPAP at bedtime if needed -Continue Diltiazem, Telmisartan AM CBC, BMP (2) Shortness of breath: Plan: see plan above (3) Type 2 diabetes mellitus: Plan: Chronic -hemoglobin A1c 5.9 -hold meformin -hold Tirzepatide as outpatient -placed on Accu-Checks w/ Novolog SSI Plan Chronic conditions: neurpathy/RLS: gabapentin, trazodone, Ropinirole Hypertension: Diltiazem, Telmisartan RADHA: CPAP at bedtime Diet: heart healthy, carb consistent DVT prophylaxis: SCD's Code: full disposition: anticipate discharge 10/15. Updated family at bedside with plan of care 10/14 Admission and Anticipated Discharge Date Admission Date: October 15, 2023 Subjective Patient seen and examined this morning with family at bedside. Patient reports to be feeling better today. She is fatigued. She was using nasal cannula at time of encounter but denied shortness of breath. She states she has never had this happen to her before. She reports some mild chest discomfort but has improved. Physical Exam 2 Constitutional: WD/WN, vitals as above Eyes: PERRL, conjunctivae normal, anicteric sclerae Respiratory: normal respiratory effort, lungs clear to auscultation Cardiovascular: RRR, no murmur, no edema Gastrointestinal (Abdomen): normal bowel sounds, soft, nontender, no hepatosplenomegaly Skin: no rashes, warm and dry Psychiatric: A+Ox3, euthymic affect Results & Data Results & Data Vital Signs (Past 12 Hours) Vital Signs Temp Pulse Pulse Pulse Resp BP Pulse Ox 10/15/23 11:30 36.4 C L 80 18 134/79 96 10/15/23 07:58 10/15/23 07:46 36.1 C L 71 20 144/80 H 98 10/15/23 07:01 69 10/15/23 01:35 72 10/15/23 01:35 36.5 C 71 17 120/71 95 10/15/23 01:00 72 20 111/55 L 94 O2 Del Method O2 Flow Rate 10/15/23 11:30 Room Air 10/15/23 07:58 Nasal Cannula 2 10/15/23 07:46 Nasal Cannula 3 10/15/23 07:01 10/15/23 01:35 10/15/23 01:35 Room Air 10/15/23 01:00 Room Air Laboratory Results 10/15/23 05:14 10/15/23 05:14 Diagnostic Findings Chest X-Ray 10/14/23 19:43 XR chest 1V portable HISTORY: Chest pain, nonspecific COMPARISON: Chest 01/20/2022. FINDINGS: The lungs are clear. Cardiac silhouette is normal in size. No pleural effusions. No pneumothorax. IMPRESSION: No acute process. ACT 112: Negative or not required by law. Electronically signed by: Da Yao M.D. 10/15/2023 8:28 AM Chest CTA 10/14/23 20:36 Exam(s): CTA CHEST IV Amt: 118ml EXAM: CT Angiography Chest With Intravenous Contrast CLINICAL HISTORY: Reason for exam: PE. TECHNIQUE: Axial computed tomographic angiography images of the chest with intravenous contrast. CTDI is 28 mGy and DLP is 922 mGy-cm. Automated exposure control was utilized for the study. A dose lowering technique was utilized adhering to the principles of ALARA. MIP reconstructed images were created and reviewed. COMPARISON: December 30, 2016 FINDINGS: Pulmonary arteries: The pulmonary arterial tree is well opacified with contrast. No pulmonary embolism is identified. Aorta: The thoracic aorta is slightly calcified but nondilated. There is no aneurysm or dissection. Lungs: Small amount of scattered subsegmental atelectasis in both lung bases. No acute appearing infiltrate, pneumothorax, or pleural effusion is seen. No mass. Pleural space: See above. Heart: Mild cardiomegaly with mild mitral calcification. No pericardial effusion. No evidence of RV dysfunction. Bones/joints: Mild degenerative changes throughout the spine. No acute fracture or destructive bone lesion is identified. No dislocation. Soft tissues: Unremarkable. Lymph nodes: Unremarkable. No enlarged lymph nodes. Adrenals: 1.6 cm right adrenal adenoma. No follow-up is required. IMPRESSION: 1. Small amount of scattered subsegmental atelectasis in both lung bases. No acute appearing infiltrate, pneumothorax, or pleural effusion is seen. 2. The pulmonary arterial tree is well opacified with contrast. No pulmonary embolism is identified. 3. The thoracic aorta is slightly calcified but nondilated. There is no aneurysm or dissection. Electronically signed by: Aaron Taylor MD 10/14/23 23:12 PM PG Care Time/CCT Total # of Minutes Spent Total Time Spent with Patient: Total time spent is greater than 50% in coordination of care (as documented) at patient's floor/unit and/or counseling patient: Coding Level of Care Code 60993 SUB INP/OBS CARE 235MIN Diagnoses Exacerbation of asthma, unspecified asthma severity, unspecified whether persistent J45.901 Asthma severity: unspecified severity Asthma persistence: unspecified Shortness of breath R06.02 Type 2 diabetes mellitus without complication, with long-term current use of insulin E11.9; Z79.4 Diabetes mellitus complication status: without complication Diabetes mellitus director long term care insulin use: with director long term care use (1) Asthma exacerbation Asthma severity: unspecified severity Asthma persistence: unspecified Qualified Code(s): J45.901 - Unspecified asthma with (acute) exacerbation (3) Type 2 diabetes mellitus Diabetes mellitus complication status: without complication Diabetes mellitus jail insulin use: with director long term care use Qualified Code(s): E11.9 - Type 2 diabetes mellitus without complications; Z79.4 - assisted (current) use of insulin
[2023-10-15] MEDS: GABAPENTIN 100 MG CAP PO SCH (13:30)
--- NOTE | 2023-10-15 16:19 | XCELERA ---
[id number] [id number]
[2023-10-15] MEDS: ACETAMINOPHEN 325 MG TAB PO PRN (17:29)
--- NOTE | 2023-10-15 19:55 | Electrocardiogram Report ---
Test Reason : Blood Pressure : */* mmHG Vent. Rate : 84 BPM Atrial Rate : 84 BPM P-R Int : 242 ms QRS Dur : 94 ms QT Int : 370 ms P-R-T Axes : 51 12 47 degrees QTcB Int : 437 ms Sinus rhythm with 1st degree A-V block Cannot rule out Anterior infarct , age undetermined Nonspecific T wave abnormality Abnormal ECG When compared with ECG of 19-Aug-2023 11:00, QT has shortened Confirmed by Bruno Arechiga ([id number]) on 10/15/2023 7:55:12 PM Referred By: REFERRED SELF Confirmed By: Bruno Arechiga
[2023-10-15] MEDS: ATORVASTATIN 40 MG TAB PO SCH (20:53)
[2023-10-15] MEDS: GABAPENTIN 300 MG CAP PO SCH (20:54)
[2023-10-15] MEDS: rOPINIRole HCL 2 MG TABLET PO SCH (20:54)
[2023-10-15] MEDS: diphenhydrAMINE Capsule 25 MG CAP PO SCH (20:54)
[2023-10-15] MEDS: MELOXICAM 7.5 MG TAB PO PRN (23:36)
[2023-10-15] MEDS: traZODone HCL 50 MG TAB PO PRN (23:37)
[2023-10-16 03:46] VITALS: O2SAT 93
[2023-10-16 07:42] VITALS: BP 133/80; RESP 16; TEMP 97.5
[2023-10-16 08:25] LABS: Basophils # (auto) 0.02 K/uL (0.00-0.20); Basophils % (auto) 0.1 %; Hematocrit (blood only) 39.8 % (37.0-47.0); Hemoglobin 12.6 g/dl (12.0-16.0); Immature Granulocytes # (auto) 0.09 K/uL (0.01-0.20); Immature Granulocytes % (auto) 0.5 %; Lymphocytes # (auto) 1.25 K/uL (1.20-3.40); Lymphocytes % (auto) 7.6 %; Mean Corpuscular Hemoglobin 26.3 pg (25.0-34.0); Mean Corpuscular Hgb Conc 31.7 g/dL (32.0-36.0); Mean Corpuscular Volume 82.9 fL (80.0-100.0); Mean Platelet Volume 9.1 fL (9.4-12.4); Monocytes # (auto) 0.73 K/uL (0.11-0.59); Monocytes % (auto) 4.4 %; Neutrophils # (auto) 14.39 K/uL (1.40-6.50); Neutrophils % (auto) 87.4 %; Platelet Count 318 K/uL (130-400); RDW Coefficient of Variation 15.1 % (11.5-14.5); RDW Standard Deviation 45.6 fL (36.4-46.3); White Blood Count 16.48 K/ul (4.8-10.8)
[2023-10-16 08:37] LABS: Albumin Level 4.3 gm/dl (3.4-5.0); BUN Creatinine Ratio 28.3 (10-20); Calcium 9.2 mg/dl (8.6-10.3); Creatinine Clr Calc Pharmacy 135.3 ml/min; Est GFR (African American) 116.4 ml/min; Est GFR (Non-African American) 100.5 ml/min; Magnesium 2.1 mg/dl (1.7-2.4); Phosphorus 3.5 mg/dl (2.5-4.9); Potassium 4.6 mmol/L (3.5-5.1)
--- NOTE | 2023-10-16 09:43 | Discharge Summary ---
Discharge Summary Date of Service October 16, 2023 Principal Dx & Hospital Course #1 = Principal Diagnosis (1) Asthma exacerbation: Patient presented to the ED on 10/13 with complaints of shortness of breath and chest pain which was suspected to be due to an asthma exacerbation. She underwent a cardiac workup that included troponins negative x 2, EKG in normal sinus rhythm, CXR negative, and chest CTA negative. Echocardiogram performed revealed similar findings when compared to echo from 2020. her symptoms resolved following treatment with methylprednisolone. She had albuterol to use as needed but did not require it during her hospital stay. She was to continue CPAP at bedtime. She was discharged home on prednisone taper and to use resuce inhaler prn. CBC and BMP were stable (2) Shortness of breath: see plan above (3) Type 2 diabetes mellitus: Chronic - hemoglobin A1c 5.9%. Home medications resumed upon discharge. Plan Chronic conditions: neurpathy/RLS: gabapentin, trazodone, Ropinirole Hypertension: Diltiazem, Telmisartan RADHA: CPAP at bedtime updated family with discharge instructions at bedside 10/15. Admission HPI Per Admitting Provider The patient is a 58-year-old female with a past medical history including migraine headache, organic periodic limb movement disorder, alpha thalassemia, sensory polyneuropathy, RLS, hypertension, asthma, diabetes mellitus, metabolic syndrome, morbid obesity, chronic cerebral ischemia and severe obstructive sleep apnea. She presents to the emergency department with a few days of shortness of breath and today has noted more dyspnea on exertion. She does not usually use her inhaler, but she did try today without much benefit, and decided to come to the ED for assessment. She reports that she did have a brief episode of lightheadedness, that was relieved by rest, but did not feel like she was going to pass out Discharge Exam Constitutional WD/WN, vitals as above Eyes PERRL, conjunctivae normal, anicteric sclerae Respiratory normal respiratory effort, lungs clear to auscultation Cardiovascular RRR, no murmur, no edema Gastrointestinal (Abdomen) normal bowel sounds, soft, nontender, no hepatosplenomegaly Skin no rashes, warm and dry Psychiatric A+Ox3, euthymic affect Discharge Plan Discharge Items Patient Disposition: Home - Self-Care Reason For Visit: ASTHMA EXACERBATION Discharge Diagnosis: Asthma Exacerbation Activity: Per Instructions section Activity Comment: gradually Non-emergency contact: Primary Care Provider Call non-emergency contact if: you have any medication questions and your symptoms worsen Follow-up/Referrals: Korina Carr MD [Primary Care Provider] - 10/25/23 2:00 pm Diet: Carb Consistent or DM2 and Heart Healthy Addtl Attending Provider Instructions: Ms. Reece, You were recently hospitalized due to shortness of breath and chest pain. You underwent heart testing that came back okay. Your echocardiogram was unchanged since 2020 and your EKG revealed you were in a normal heart rhythm. Given your history of asthma, this was found to be an exacerbation of it. You were treated with steroids and your symptoms improved. Please see recommendations below regarding your discharge. 1. Please take Steroid taper as prescribed. 2. Please use rescue inhaler that you already have at home as needed for shortness of breath. 3. Please resume your previous activities gradually. 4. Please resume outpatient medications as prescribed by your PCP. Please follow up with your PCP within 1-2 weeks of discharge. If you develop any chest pain, shortness of breath, fevers, or chills please report back to the ER for further care. Sincerely, Viviana Dover PA-C Pending Studies at Discharge: No Stand-Alone Forms: My [facility] KO-SU, Smoking Cessation Medications and DC Order Prescriptions: New prednisone 10 mg tablet 10 mg PO DIRECTED Qty: 20 0RF Rx Instructions: Please take 4 tablets by mouth for 2 days then 3 tablets by mouth for 2 days then 2 tablets by mouth for 2 days then 1 tablet by mouth for 2 days Continued albuterol sulfate [Ventolin HFA] 90 mcg/actuation HFA aerosol inhaler 2 puff inhalation QID Qty: 18 2RF trazodone 50 mg tablet 50 mg PO HS PRN (Reason: sleep) Qty: 90 1RF meloxicam 15 mg tablet 15 mg PO DAILY PRN (Reason: pain) Qty: 30 1RF gabapentin 300 mg capsule 600 mg PO HS Qty: 180 3RF metformin 1,000 mg tablet 1,000 mg PO BID Qty: 180 3RF ropinirole 2 mg tablet 4 mg PO QPM Qty: 180 3RF pimecrolimus 1 % cream 1 applic topical BID PRN (Reason: allergies) diphenhydramine HCl 50 mg capsule 50 mg PO HS tirzepatide 12.5 mg/0.5 mL pen injector 12.5 mg subcut Q7D 28 Days Qty: 2 2RF Rx Instructions: PER PT "CAN'T GET FROM PHARMACY" olmesartan 40 mg tablet 40 mg PO DAILY Qty: 90 3RF cholecalciferol (vitamin D3) [Vitamin D3] 125 mcg (5,000 unit) Tablet 250 mcg PO QAM atorvastatin 40 mg tablet 40 mg PO QPM valacyclovir 500 mg tablet 500 mg PO QAM triamcinolone acetonide 0.1 % cream 1 applic topical BID PRN (Reason: allergies) Rx Instructions: Apply to areas of the trunk and extremities twice daily x 2 weeks as directed. diltiazem HCl 120 mg capsule,extended release 24 hr 120 mg PO QAM furosemide 20 mg tablet 20 mg PO QAM gabapentin 100 mg capsule 100 mg PO .q afternoon vitamin B complex Tablet 1 tab PO DAILY nystatin 100,000 unit/gram powder 1 applic topical TID PRN (Reason: Skin Irritation) doxycycline monohydrate [Oracea] 40 mg capsule,IR - delay rel,biphase 40 mg PO DAILY Rx Instructions: TAKE 1 CAPSULE BY MOUTH EVERY DAY No Action (DME) Interdry (Moisture Wicking Fabric with antimicrobial silver) See Rx Instructions .Route .MEDSUPPLY Qty: 90 0RF Rx Instructions: Apply to skin folds to reduce friction, relieve redness, prevent bacterial/fungal growth. Apply clean dressing up to three times daily. Discharge Orders: Discharge Order (Routine); Ordered 10/16/23 Ordered By: Viviana Boykin/Other Patient Handouts: Asthma Triggers Control Home Work, Asthma Using [facility]CS For Flare Ups Admission Data Admit Date/Time: 10/15/23 00:11 Attending Provider: Sergio Tom Admit Provider: Jakob Lindsay Primary Care Provider: Korina Carr Other Providers: Jakob Lindsay Other Interventions: Discharge Summary Assessment (RN) Last Done: 10/16/23 09:45 Hospital Stay Data Consultations 10/14/23 23:08 ED Decision to Admit Stat Diagnostic Imagining Performed 10/14/23 20:36 CT for pulmonary embolism PE [CT angio chest PE protocol] Stat Pending Results Patient Have Any Pending Studies at Discharge: No Discharge Instructions Given to Patient (Per Discharging Provider) Ms. Reece, You were recently hospitalized due to shortness of breath and chest pain. You underwent heart testing that came back okay. Your echocardiogram was unchanged since 2020 and your EKG revealed you were in a normal heart rhythm. Given your history of asthma, this was found to be an exacerbation of it. You were treated with steroids and your symptoms improved. Please see recommendations below regarding your discharge. 1. Please take Steroid taper as prescribed. 2. Please use rescue inhaler that you already have at home as needed for shortness of breath. 3. Please resume your previous activities gradually. 4. Please resume outpatient medications as prescribed by your PCP. Please follow up with your PCP within 1-2 weeks of discharge. If you develop any chest pain, shortness of breath, fevers, or chills please report back to the ER for further care. Sincerely, Viviana Dover PA-C Supervising Physician Co-Signing Physician Notes During face to face encounter, I obtained a brief physical examination, discussed hospital stay with patient and discharge instructions with patient. I discussed discharge plan of care with PA Dover. I reviewed above note and agree with it except for the following: Admitted with asthma exacerbation. Patient improved with IV corticosteroids. Patient will be discharged on prednisone taper. Total Time Total Time Spent Total Time Spent (In Minutes): 37 Total Time Includes: Examination of the Patient, Discharge Planning and Medication Reconciliation Coding Level of Care Code 42517 INP/OBS DISCH >30 MIN Diagnoses Exacerbation of asthma, unspecified asthma severity, unspecified whether persistent J45.901 Asthma persistence: unspecified Asthma severity: unspecified severity Shortness of breath R06.02 Type 2 diabetes mellitus without complication, with long-term current use of insulin E11.9; Z79.4 Diabetes mellitus complication status: without complication Diabetes mellitus residential insulin use: with terminal gauger use
[2023-10-16 09:46] VITALS: PULSE 71
== END 2023-10-16 10:20 | disposition home or self-care (01) ==
LOC: 2N 19:35 → ED 19:35 → SUATTDRO 10-15 00:11 → 2N 10-15 01:12
DX: E66.2 Morbid (severe) obesity with alveolar hypoventilation; E11.9 Type 2 diabetes mellitus without complications; E78.5 Hyperlipidemia, unspecified; Z79.84 Long term (current) use of oral hypoglycemic drugs; Z79.51 Long term (current) use of inhaled steroids; G25.81 Restless legs syndrome; Z79.899 Other long term (current) drug therapy; Z88.8 Allergy status to other drugs, medicaments and biological substances; Z68.42 Body mass index [BMI] 45.0-49.9, adult; J45.901 Unspecified asthma with (acute) exacerbation; Z88.1 Allergy status to other antibiotic agents; G43.909 Migraine, unspecified, not intractable, without status migrainosus; I10 Essential (primary) hypertension; Z79.4 Long term (current) use of insulin; G47.33 Obstructive sleep apnea (adult) (pediatric); G47.61 Periodic limb movement disorder